=== PATIENT | female | born 1955 | race Caucasian/White ===

== ENCOUNTER 2017-03-21 11:17 | Inpatient (IN) | payer OTHER ==
[2017-03-21] MEDS ORDERED: NS 1,000 ML IV ONE ×2 (14:49→17:45)
[2017-03-21] MEDS ORDERED: ONDANSETRON 4 MG/2 ML VIAL IVP ONE (15:09)
[2017-03-21] MEDS ORDERED: HYDROmorphONE/DILAUDID 1 MG/ML INJ IVP ONE ×2 (15:10→17:45)
[2017-03-21 15:22] LABS: PLATELET COUNT 223 10^3/uL (150-400)
[2017-03-21] MEDS ORDERED: IOPAMIDOL (ISOVUE-300) 100 ML BTL ONE (15:34)
--- NOTE | 2017-03-21 15:38 | EDPHY ---
H & P Stated Complaint: lower mid abd pain x 3 days, hx divertic Time Seen by Provider: 03/21/17 15:01 HPI/ROS: CHIEF COMPLAINT: Lower abdominal pain HISTORY OF PRESENT ILLNESS: Patient is a 61-year-old female with a history recurring diverticulitis. She states that she began feeling pain in her left lower quadrant on Tuesday. She began taking Augmentin which has worked for her in the past. She states however that her symptoms usually improve after about a day or 2 but this time to have not. She had a fever at home of 101 but has been taking Aleve since. No nausea or vomiting. She has had normal bowel movements nonbloody. She does have history of laparoscopy x2 for endometriosis and right ovary removal. She denies urinary or vaginal symptoms currently. REVIEW OF SYSTEMS: Constitutional: denies: chills, fever, recent illness, recent injury EENTM: denies: blurred vision, double vision, nose congestion Respiratory: denies: cough, shortness of breath Cardiac: denies: chest pain, irregular heart rate, lightheadedness, palpitations Gastrointestinal/Abdominal: See HPI Genitourinary: denies: dysuria, frequency, hematuria, pain Musculoskeletal: denies: joint pain, muscle pain Skin: denies: lesions, rash, jaundice, bruising Neurological: denies: headache, numbness, paresthesia, tingling, dizziness, weakness Hematologic/Lymphatic: denies: blood clots, easy bleeding, easy bruising Immunologic/allergic: denies: HIV/AIDS, transplant EXAM: GENERAL: Well-appearing, well-nourished and in no acute distress. HEAD: Atraumatic, normocephalic. EYES: Pupils equal round and reactive to light, extraocular movements intact, sclera anicteric, conjunctiva are normal. ENT: TMs normal, nares patent, oropharynx clear without exudates. Moist mucous membranes. NECK: Normal range of motion, supple without lymphadenopathy or JVD. LUNGS: Breath sounds clear to auscultation bilaterally and equal. No wheezes rales or rhonchi. HEART: Regular rate and rhythm without murmurs, rubs or gallops. ABDOMEN: Suprapubic and left lower quadrant tenderness, no guarding or rebound . No right lower quadrant tenderness BACK: No CVA tenderness, no spinal tenderness, step-offs or deformities EXTREMITIES: Normal range of motion, no pitting or edema. No clubbing or cyanosis. NEUROLOGICAL: Cranial nerves II through XII grossly intact. Normal speech, normal gait. 5/5 strength, normal movement in all extremities, normal sensation PSYCH: Normal mood, normal affect. SKIN: Warm, dry, normal turgor, no visible rashes or lesions. Source: Patient Exam Limitations: No limitations - Personal History Current Tetanus/Diphtheria Vaccine: Unsure Current Tetanus Diphtheria and Acellular Pertussis (TDAP): Unsure - Medical/Surgical History Hx Asthma: No Hx Chronic Respiratory Disease: No Hx Diabetes: No Hx Cardiac Disease: No Hx Renal Disease: No Hx Cirrhosis: No Hx Alcoholism: No Hx HIV/AIDS: No Hx Splenectomy or Spleen Trauma: No Other PMH: divertic, endometriosis, laparotomy - Social History Smoking Status: Never smoked Alcohol Use: Sober Drug Use: None Constitutional: Initial Vital Signs Temperature (C) 37.0 C 03/21/17 11:32 Heart Rate 116 H 03/21/17 11:32 Respiratory Rate 16 03/21/17 11:32 Blood Pressure 158/75 H 03/21/17 11:32 O2 Sat (%) 95 03/21/17 11:32 O2 Delivery Mode Room Air Allergies/Adverse Reactions: ciprofloxacin [From Cipro] Allergy (Verified 03/21/17 18:53) Other-Enter Comments codeine Allergy (Verified 03/21/17 18:53) Vomiting propoxyphene [From Darvocet-N] Allergy (Verified 03/21/17 18:53) Itching Home Medications: Medication Instructions Recorded Amoxicillin/Clavulanate Pot 875 mg PO BID 03/21/17 [Augmentin 875 MG TAB (*)] Estradiol [Climara] 0.025 mg TD WE@0900 03/21/17 Herbals/Supplements -Info Only 1 ea PO DAILY 03/21/17 Lansoprazole [Prevacid] 30 mg PO HS 03/21/17 Multivitamins [Multivitamin (*)] 1 each PO DAILY 03/21/17 Niacin [Niacin 500 mg (*)] 1,500 mg PO HS 03/21/17 [place]-3 Fatty Acids [Fish Oil 1000 1,000 mg PO DAILY 03/21/17 mg (*)] Progesterone, Micronized 100 mg PO DAILY 03/21/17 [Progesterone] Spironolactone 100 mg PO DAILY 03/21/17 metFORMIN HCL [Metformin HCl ER] 1,500 mg PO DAILY@1800 03/21/17 Medical Decision Making - Diagnostics Imaging Results: Imaging Impressions Abdomen CT 03/21/17 15:09 Impression: 1. Severe perforated sigmoid diverticulitis with associated extraluminal gas bubbles and free fluid in the cul-de-sac. No well defined organized abscess. 2. Reactive enteritis of the ileum and dysmotile fluid within the cecum and ascending colon. No bowel obstruction. Findings discussed with Emergency Department physician, Dr. Inocente Storey on March 21, 2017 at 1653 hours. Imaging: Discussed imaging studies w/ call center rn Radiologist ED Course/Re-evaluation: 5:30 p.m. we discussed the CT and lab results. The patient is concerned. I recommended admission for IV antibiotics and monitoring. Patient and agree. 5:40 p.m. I discussed the case with Dr. Brito who will admit to the medical service. She asked that we consult surgery. 5:45 p.m. I discussed the case with Dr. Guevara who will consult. Differential Diagnosis: Partial list of the Differential diagnosis considered include but were not limited to; diverticulitis, urinary tract infection and although unlikely based on the history and physical exam, I also considered obstruction, ischemia , aneurysm, volvulus. - Data Points Laboratory Results: Laboratory Results 03/21/17 14:05 03/21/17 14:05 03/21/17 03/21/17 03/21/17 14:05 14:05 13:12 WBC 11.68 10^3/uL H 10^3/uL (3.80-9.50) RBC 4.70 10^6/uL 10^6/uL (4.18-5.33) Hgb 13.7 g/dL g/dL (12.6-16.3) Hct 42.4 % % (38.0-47.0) MCV 90.2 fL fL (81.5-99.8) MCH 29.1 pg pg (27.9-34.1) MCHC 32.3 g/dL L g/dL (32.4-36.7) RDW 13.7 % % (11.5-15.2) Plt Count 223 10^3/uL 10^3/uL (150-400) MPV 11.4 fL fL (8.7-11.7) Neut % (Auto) 93.9 % H % (39.3-74.2) Lymph % (Auto) 3.2 % L % (15.0-45.0) [place] % (Auto) 2.1 % L % (4.5-13.0) Eos % (Auto) 0.0 % L % (0.6-7.6) Baso % (Auto) 0.2 % L % (0.3-1.7) Nucleat RBC Rel Count 0.0 % % (0.0-0.2) Absolute Neuts (auto) 10.97 10^3/uL H 10^3/uL (1.70-6.50) Absolute Lymphs (auto) 0.37 10^3/uL L 10^3/uL (1.00-3.00) Absolute Monos (auto) 0.25 10^3/uL L 10^3/uL (0.30-0.80) Absolute Eos (auto) 0.00 10^3/uL L 10^3/uL (0.03-0.40) Absolute Basos (auto) 0.02 10^3/uL 10^3/uL (0.02-0.10) Absolute Nucleated RBC 0.00 10^3/uL 10^3/uL (0-0.01) Immature Gran % 0.6 % % (0.0-1.1) Immature Gran # 0.07 10^3/uL 10^3/uL (0.00-0.10) Sodium 137 mEq/L mEq/L (135-145) Potassium 4.0 mEq/L mEq/L (3.5-5.2) Chloride 103 mEq/L mEq/L (97-110) Carbon Dioxide 19 mEq/l L mEq/l (22-31) Anion Gap 15 mEq/L mEq/L (8-16) BUN 11 mg/dL mg/dL (7-23) Creatinine 0.7 mg/dL mg/dL (0.6-1.0) Estimated GFR > 60 Glucose 118 mg/dL H mg/dL (70-100) Calcium 9.0 mg/dL mg/dL (8.5-10.4) Total Bilirubin 1.0 mg/dL mg/dL (0.1-1.4) Conjugated Bilirubin 0.4 mg/dL mg/dL (0.0-0.5) Unconjugated Bilirubin 0.6 mg/dL mg/dL (0.0-1.1) AST 17 IU/L IU/L (14-46) ALT 29 IU/L IU/L (9-52) Alkaline Phosphatase 82 IU/L IU/L (38-126) Total Protein 6.5 g/dL g/dL (6.3-8.2) Albumin 3.7 g/dL g/dL (3.5-5.0) Lipase 57 IU/L IU/L (23-300) Urine Color VICTORINA Urine Appearance HAZY Urine pH 5.0 (5.0-7.5) Ur Specific [place] 1.030 (1.002-1.030) Urine Protein 1+ H (NEGATIVE) Urine Ketones 1+ H (NEGATIVE) Urine Blood NEGATIVE (NEGATIVE) Urine Nitrate NEGATIVE (NEGATIVE) Urine Bilirubin NEGATIVE (NEGATIVE) Urine Urobilinogen 2.0 EU H EU (0.2-1.0) Ur Leukocyte Esterase NEGATIVE (NEGATIVE) Urine RBC NONE SEEN /hpf /hpf (0-3) Urine WBC 1-3 /hpf /hpf (0-3) Ur Epithelial Cells TRACE /lpf /lpf (NONE-1+) Urine Bacteria 1+ /hpf H /hpf (NONE SEEN) Urine Mucus 4+ /lpf H /lpf (NONE-1+) Urine Glucose NEGATIVE (NEGATIVE) Medications Given: Pantoprazole Sodium (Protonix) 40 mg IVP DAILY SASKIA Stop: 09/17/17 18:44 Last Admin: 03/21/17 20:24 Dose: Not Given Discontinued Medications Hydromorphone HCl (Dilaudid) 0.5 mg IVP EDNOW ONE Stop: 03/21/17 15:11 Last Admin: 03/21/17 15:18 Dose: 0.5 mg Hydromorphone HCl (Dilaudid) 0.5 mg IVP EDNOW ONE Stop: 03/21/17 17:46 Last Admin: 03/21/17 17:52 Dose: 0.5 mg Sodium Chloride (Ns) 1,000 mls @ 0 mls/hr IV ONCE ONE PRN Reason: Wide Open Stop: 03/21/17 14:50 Last Admin: 03/21/17 14:53 Dose: 1,000 mls Piperacillin/Tazobactam/Dextrose (Zosyn 3.375 Gm (Premix)) 50 mls @ 100 mls/hr IV EDNOW ONE PRN Reason: Protocol Stop: 03/21/17 18:11 Last Admin: 03/21/17 18:16 Dose: 50 mls Sodium Chloride (Ns) 1,000 mls @ 0 mls/hr IV ONCE ONE PRN Reason: Wide Open Stop: 03/21/17 17:46 Last Admin: 03/21/17 17:51 Dose: 1,000 mls Ondansetron HCl (Zofran) 4 mg IVP EDNOW ONE Stop: 03/21/17 15:10 Last Admin: 03/21/17 15:18 Dose: 4 mg Departure - Departure Disposition: [facility] Inpatient Acute Clinical Impression: Diverticulitis large intestine Qualifiers: Diverticulitis bleeding: without bleeding Diverticulitis complication: with perforation and without abscess Qualified Code(s): K57.20 - Diverticulitis of large intestine with perforation and abscess without bleeding Condition: Fair
[2017-03-21] MEDS ORDERED: ONDANSETRON DISINTEGRATING 4 MG TAB PO PRN (17:41)
[2017-03-21] MEDS ORDERED: ONDANSETRON 4 MG/2 ML VIAL IVP PRN (17:41)
[2017-03-21] MEDS ORDERED: ACETAMINOPHEN 325 MG TAB PO PRN (17:41)
[2017-03-21] MEDS ORDERED: PIPERACILLIN/TAZO 3.375 GM/DEX 50 ML IV ONE (17:42)
[2017-03-21] MEDS ORDERED: D50W 25 GM/50 ML SYR IVP PRN (18:34)
--- NOTE | 2017-03-21 19:05 | GHP ---
[f rep st] HISTORY AND PHYSICAL DATE OF ADMISSION: 03/21/2017 CHIEF COMPLAINT: Abdominal pain, diverticulitis. HISTORY OF PRESENT ILLNESS: A 61-year-old female, with a history of diverticulosis, diverticulitis 4-5 times, presenting with lower abdominal pain. This is achy in nature and started on Tuesday. It felt like her prior episodes. She called her physician in [place], who prescribed her Augmentin, which she started taking that day. She has had decreased p.o. intake and fever to 101 at home. The pain became very severe this morning, 10/17, thus she presented to the hospital. No nausea, vomiting, or diarrhea. No headache. Minimal p.o. intake. REVIEW OF SYSTEMS: I completed a 10-point review of system, negative except as noted in the HPI. PAST MEDICAL HISTORY: 1. Prediabetes. 2. GERD. 3. 4 cm high hiatal hernia. 4. Diverticulosis. 5. History of diverticulitis 4-5 times. 6. Endometriosis. 7. Uterine fibroids. SURGICAL HISTORY: 1. Diagnostic laparoscopy in 1997. 2. Ovarian cyst. 3. Endometriosis. 4. Bilateral upper blepharoplasty in 1997. 5. Diagnostic laparoscopic right oophorectomy. 6. Carpal tunnel release. 7. Colonoscopy 2005. 8. Coronary CTA 2006. 9. Right carpal tunnel release 2006. 10. Full face and neck lift 2015. 11. Gastritis, duodenitis. MEDICATIONS: 1. Metformin 1500 mg daily. 2. Spironolactone 100 mg daily. 3. Climara transdermal patch weekly. 4. Prometrium 100 mg daily. 5. Lansoprazole 30 mg at bedtime. 6. Multivitamin. 7. Glucosamine. 8. Fish oil. 9. Calcium. 10. Niacin 1500 mg at bedtime. 11. Augmentin 875 mg twice daily. ALLERGIES: Codeine, Darvocet, ciprofloxacin. SOCIAL HISTORY: She is a retired nurse. She just moved here with her to [place] a couple weeks ago. Has a son and 4 grandchildren. Alcohol 1-2 beers 2-3 times a week. No tobacco or illicits. PHYSICAL EXAMINATION: VITAL SIGNS: Temperature 37.7, blood pressure 103/67, heart rate 70-116, respiratory rate 16, respiration 95 on room air. GENERAL: Lying in bed, no acute distress. HEENT: PERRLA. Mildly dry mucous membranes. CV: Regular rate and rhythm. No murmurs, gallops, rubs. LUNGS: Clear to auscultation bilaterally. ABDOMEN: Soft. Tender left upper quadrant, bilateral lower quadrants. Guarding but no rebound. Positive bowel sounds. : No Humphrey. MUSCULOSKELETAL: 5/5 upper and lower extremity strength. NEUROLOGIC: 2 through 12 intact. PSYCHIATRIC: Alert and oriented x3. LABORATORY DATA: WBC 11, hemoglobin 13, hematocrit 42, platelets 223. Sodium 137, potassium 4, chloride 103, carbon dioxide 19, creatinine 0.7, glucose 119, calcium 9. LFTs within normal. Lipase 57. Urine +[address]: Severe perforated sigmoid diverticulosis with associated extraluminal gas bubbles and free air in the cul-de-sac. Reactive enteritis of the ileum. ASSESSMENT AND PLAN: 1. Acute diverticulitis with perforation: Patient is currently hemodynamically stable. Dr. Guevara with Surgery will evaluate. Continue IV antibiotics, n.p.o. status with IV fluids. Lactate pending 2. Acute abdominal pain: Secondary to above. No evidence of abscess. p.r.n. Dilaudid. 3. Prediabetes: Hold metformin. Will use sliding scale insulin while here. 4. Leukocytosis: Secondary to acute diverticulitis with perforation. Afebrile. If fevers, will culture. 5. Gastritis, enteritis: Will change to IV PPI while n.p.o. 6. History of hiatal hernia: Stable. 7. Diet: N.p.o. 8. Deep venous prophylaxis: SCDs. DISPOSITION: Patient warrants observation admission given acute abdominal pain , diverticulitis, warranting IV antibiotics with IV fluids, and surgery consultation. /[id number]/MODL MTDD
[2017-03-21] MEDS: PANTOPRAZOLE SODIUM 40 MG VIAL IVP SCH (20:24)
--- NOTE | 2017-03-21 20:45 | GCON ---
[f rep st] CONSULTATION CONSULTATION NOTE REFERRING PHYSICIAN: Jailene Brito MD REASON FOR CONSULTATION: Recurrent diverticulitis. HISTORY: The patient is a 61-year-old white female who has had 5 episodes of diverticulitis since 2013. This is the first one where she has required hospitalization. Typically, she develops discomfort and starts Augmentin and 48 hours later the episode usually is resolved. This patient's pain started on Tuesday (today is Tuesday). She started the Augmentin and did not see resolution. On Tuesday, her temperature went to 101. She had no nausea and vomiting. She did have normal bowel movements. She has had no appetite today and the pain became worse today. She had a stool this morning without changes in discomfort. She had 2 soft stools later on in the day and felt somewhat better. She previously has had an exploratory laparoscopy for endometriosis. Ruptured chocolate cyst was identified in the first procedure and a right oophorectomy was performed on the 2nd procedure. She was seen in the ER. An x-ray showed sigmoid diverticulosis with tiny local focal perforations, a small amount of fluid present. I was asked to consult on this case for the possibility of surgical intervention. SOCIAL HISTORY: She is a nonsmoker. She drinks 2 or 3 glasses of wine or beer 2 times per week. PAST MEDICAL HISTORY: She has an interesting history of coagulopathy. At one point, she was asked to start taking aspirin and immediately developed scleral hemorrhages. She bruises easily with any minimal bump. She had a facelift and had extensive bruising after that. PAST SURGICAL HISTORY: She has had bilateral carpal tunnel surgery. She had a colonoscopy. 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 She was started on Prevacid. She then weaned herself off the Prevacid, and on the 2nd endoscopy, she was found to have esophagitis, gastritis, and duodenitis, as well as a 4 cm hiatal hernia. She has returned to taking the Prevacid. There is no history of rheumatic fever, tuberculosis, hepatitis, or transfusions. REVIEW OF SYSTEMS: She is "prediabetic" and has been so for 3 to 4 years. Her A1c has been as high as 6.0, today it is 5.4. ALLERGIES: She has on the chart a list allergies which is incorrect. It lists Tylenol is an allergy and she has been able to tolerate Tylenol. Cipro gives her ringing in her ears, which is an adverse reaction. Codeine gives her nausea and vomiting, which is an adverse reaction, and propoxyphene gives her nausea and vomiting. CURRENT MEDICATIONS: Include a 0.1 Climara patch, she divides it in 4, so her dose is 0.025, and she takes that weekly. She uses the Prevacid. For prediabetes, she takes metformin 1500 mg with her evening meal. She uses spironolactone 100 mg for hirsutism. LABORATORY DATA: Her white blood count is 11.7, with 96% neutrophils, hematocrit is 42, platelets are 223. Her sodium is 137, potassium is 4.0, BUN is 11, creatinine is 0.7, lipase is 57. Her serum specific gravity is 1.030. Serum lactate is pending. PHYSICAL EXAMINATION: VITAL SIGNS: Her blood pressure is 103/67, heart rate 74, temperature 37.7. GENERAL: She is awake and alert. 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 NEUROLOGIC: She is oriented to person, place, and time. No focal lateralizing neurologic findings. HEAD: The skull is normocephalic and atraumatic. Cranial nerves are intact. The occlusion is normal. L YMPHATICS: There is no cervical, supraclavicular, axillary or inguinal lymphadenopathy. NECK: There are no carotid bruits. Thyroid is not enlarged. BACK: Unremarkable. LUNGS: Clear to auscultation. CARDIAC: Shows S1, S2 to be normal. Normal split of S2 without murmurs, rubs, or gallops. ABDOMEN: Distended with hypoactive bowel sounds. She is tender with cough across the hypogastrium as a 6 on a scale of 1-10. To palpation, left upper quadrant is 2 on a scale of 1-10, left mid abdomen is 3, left lower quadrant is 6, epigastrium is 2, periumbilical area is 2, suprapubic area is 5, right upper quadrant is 1, right mid abdomen is 1, right lower quadrant is 5. This patient has received Zosyn. I feel this is a reasonable antibiotic at this point. I do not feel she needs emergent surgeryt, but would suggest rather temporizing with the antibiotics, observation and medical support. It is my hope that we can temporize this process and perform elective resection after the resolution of the current process (approximately 8 weeks). Normally, I do not recommend an aggressive surgery after 1 hospitalization, but she has had 5 prior similar episodes in the past 4 years, which have not required hospitalization, and I think at this point it is time to proceed with definitive treatment. The patient and her understand my recommendations. /[id number]/MODL MTDD
[2017-03-21] MEDS: HYDROmorphONE/DILAUDID 1 MG/ML INJ IVP PRN (22:08)
[2017-03-22] MEDS: HYDROmorphONE/DILAUDID 1 MG/ML INJ IVP PRN ×2 (06:10→10:36)
--- NOTE | 2017-03-22 09:06 | SOAPPROG ---
SOAP Progress Note Assessment/Plan: Assessment: significant diverticulitis with extraluminal air bubbles aroun ds sigmoid, no emergent need for surgery. recc: sips and chips, possibly clear liq diet tomorrow. Plan: continue iv antibiotics, bowel rest, discussed follow up with me post dischage to discuss colectomy. 03/22/17 09:02 Subjective: still with llq aqnd suprpubic pain, no chills, pasing some flatus, had a stool yesterday. Objective: Vital Signs Temp Pulse Resp BP Pulse Ox 37.7 C 93 16 95/63 L 92 03/22/17 07:35 03/22/17 07:35 03/22/17 07:35 03/22/17 07:35 03/22/17 07:35 Laboratory Results 03/22/17 06:06 03/21/17 03/22/17 03/23/17 05:59 05:59 05:59 Intake Total 3100 Balance 3100 abdomen soft. tender llq qand supra pubic. no guardking, no rebound wbc normal, afebrile ICD10 Worksheet Patient Problems: Problems Problem Status Onset Diverticulitis large intestine Acute
[2017-03-22] MEDS: INSULIN LISPRO 100 UNIT/ML SC SCH ×3 (09:26→18:25)
[2017-03-22] MEDS: PANTOPRAZOLE SODIUM 40 MG VIAL IVP SCH (10:35)
--- NOTE | 2017-03-22 10:59 | ASMTCASEMG ---
Living Arrangements What is your living Answers: With Spouse arrangement? Who do you live with? Type Of Residence What kind of residence do Answers: House you live in? Discharge Plan Comments Coordination Status Comments Notes: Pt is a 61 y/o female admitted for diverticulitis. Pt will most likely independent when medically stable. No therapies ordered at this time. CM available for changes. Plan: Independent Date Signed: 03/22/2017 10:58 AM Electronically Signed By:ANDRE Smart
[2017-03-22] MEDS ORDERED: NALOXONE HCL 0.4 MG/ML INJ IVP PRN (12:05)
[2017-03-22] MEDS: PIPERACILLIN/TAZO 3.375 GM/DEX 50 ML IV SCH ×3 (12:31→23:47)
[2017-03-22] MEDS: HYDROmorphONE/DILAUDID 6 MG/30 ML PCA IV PRN (13:40)
[2017-03-22] MEDS: NS 1,000 ML IV SCH (13:43)
--- NOTE | 2017-03-22 14:44 | HOSPPROG ---
Hospitalist Progress Note Assessment/Plan: 61y female with c/o abd pain. First encounter, chart reviewed. 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 Still having some pain. Objective: Vital Signs Temp Pulse Resp BP Pulse Ox 37.8 C 99 16 109/65 90 L 03/22/17 13:50 03/22/17 13:50 03/22/17 13:50 03/22/17 13:50 03/22/17 13:50 Laboratory Results 03/22/17 06:06 03/21/17 03/22/17 03/23/17 05:59 05:59 05:59 Intake Total 3100 Balance 3100 - Physical Exam Constitutional: no apparent distress, appears nourished, uncomfortable Eyes: PERRL, anicteric sclera, EOMI Ears, Nose, Mouth, Throat: moist mucous membranes, hearing normal, ears appear normal Cardiovascular: No JVD, No tachycardia, No edema Respiratory: no respiratory distress, no rales or rhonchi, reduced air movement Gastrointestinal: tenderness, No normoactive bowel sounds, No ascites Skin: warm, normal color, No mottled Musculoskeletal: normal joint ROM, no joint effusions, generalized weakness Neurologic: AAOx3 Psychiatric: interacting appropriately, not anxious, not encephalopathic, thought process linear ICD10 Worksheet Patient Problems: Problems Problem Status Onset Diverticulitis large intestine Acute
--- NOTE | 2017-03-22 15:47 | PDMN ---
Medical Necessity Medical necessity: M150 diverticulitis- acute A-2: INPT microperforations , persistent abd pain- req NPO, SOCIOLOGY INSTRUCTOR, IVF, IV Zosyn, further monitoring and tx needed > 2 midnights
[2017-03-23] MEDS: NS 1,000 ML IV SCH ×2 (00:30→11:27)
[2017-03-23] MEDS: PIPERACILLIN/TAZO 3.375 GM/DEX 50 ML IV SCH ×3 (05:20→18:03)
[2017-03-23] MEDS: PANTOPRAZOLE SODIUM 40 MG VIAL IVP SCH (09:19)
[2017-03-23] MEDS ORDERED: KETOROLAC 30 MG/1 ML SDV IVP PRN (12:24)
[2017-03-23] MEDS ORDERED: SPIRONOLACTONE 100 MG TAB PO SCH (12:30)
[2017-03-23] MEDS: HYDROmorphONE/DILAUDID 6 MG/30 ML PCA IV PRN (12:31)
[2017-03-23] MEDS: FUROSEMIDE 20 MG/2 ML VIAL IVP SCH (12:51)
[2017-03-23] MEDS: INSULIN LISPRO 100 UNIT/ML SC SCH ×2 (14:31→18:24)
--- NOTE | 2017-03-23 14:52 | HOSPPROG ---
Hospitalist Progress Note Assessment/Plan: 61y female with c/o abd pain. 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 Still some discomfort. Objective: Vital Signs Temp Pulse Resp BP Pulse Ox 36.0 C 83 16 102/68 96 03/23/17 14:00 03/23/17 14:00 03/23/17 14:00 03/23/17 14:00 03/23/17 14:00 Laboratory Results 03/23/17 08:30 03/23/17 08:30 03/22/17 03/23/17 03/24/17 05:59 05:59 05:59 Intake Total 1350 1000 Output Total 850 Balance 1350 150 - Physical Exam Constitutional: no apparent distress, appears nourished Eyes: PERRL, anicteric sclera Ears, Nose, Mouth, Throat: moist mucous membranes, hearing normal Cardiovascular: regular rate and rhythym, No JVD Respiratory: no respiratory distress, reduced air movement Gastrointestinal: tenderness, No ascites Skin: warm, normal color Musculoskeletal: normal joint ROM, no joint effusions Neurologic: AAOx3 Psychiatric: interacting appropriately, not anxious, not encephalopathic ICD10 Worksheet Patient Problems: Problems Problem Status Onset Diverticulitis large intestine Acute
--- NOTE | 2017-03-23 15:13 | SOAPPROG ---
SOAP Progress Note Assessment/Plan: Assessment:perforated diverticulitis multiple uterine fibroids type II DM Plan: discussed pathophysiology of diverticulitis and management strategy/ reviewed CT images with patient and repeat CT if spiking fevers or wbc elevation/discussed possible need for IR drain placement or surgery if not improving 03/23/17 15:12 03/23/17 20:49 Subjective: ongoing LLQ pain/improved with UNIT TENDER Had 30 mg Toradol at 1250 with good response/passing flatus Objective: Vital Signs Temp Pulse Resp BP Pulse Ox 36.0 C 83 16 102/68 96 03/23/17 14:00 03/23/17 14:00 03/23/17 14:00 03/23/17 14:00 03/23/17 14:00 Laboratory Results 03/23/17 08:30 03/23/17 08:30 03/22/17 03/23/17 03/24/17 05:59 05:59 05:59 Intake Total 1350 1000 Output Total 850 Balance 1350 150 - Time Spent With Patient Time Spent With Patient: 30 minutes - Pending Discharge Pending Discharge Within 24 Hours: No Physical Exam - Physical Exam General Appearance: mild distress Respiratory: lungs clear, normal breath sounds Cardiac/Chest: regular rate, rhythm Abdomen: normal bowel sounds, soft, distended, other (tender w/ guarding LLQ + suprapubic) Pelvic Exam: deferred Rectal: deferred Skin: normal color, warm/dry Neuro/Psych: normal mood/affect, oriented x 3 ICD10 Worksheet Patient Problems: Problems Problem Status Onset Diverticulitis large intestine Acute
[2017-03-23] MEDS: ESTRADIOL 0.025 MG PATCH TD SCH (18:24)
[2017-03-23] MEDS: KETOROLAC 15 MG/1 ML SDV IVP PRN (21:23)
[2017-03-24] MEDS: PIPERACILLIN/TAZO 3.375 GM/DEX 50 ML IV SCH ×4 (00:45→16:08)
[2017-03-24] MEDS: KETOROLAC 15 MG/1 ML SDV IVP PRN (04:20)
[2017-03-24 05:37] LABS: PLATELET COUNT 198 10^3/uL (150-400)
--- NOTE | 2017-03-24 07:45 | SOAPPROG ---
SOAP Progress Note Assessment/Plan: Assessment:perforated diverticulitis clinically improving multiple uterine fibroids type II DM Plan: advance diet/oral analgesics discussed transition to oral antibiotics next 24-48 hours 03/23/17 15:12 03/23/17 20:49 03/24/17 07:42 Subjective: feeling better/soft BM earlier Objective: Vital Signs Temp Pulse Resp BP Pulse Ox 36.6 C 78 18 119/80 95 03/24/17 07:38 03/24/17 07:38 03/24/17 07:38 03/24/17 07:38 03/24/17 07:38 Laboratory Results 03/24/17 05:16 03/24/17 05:16 03/23/17 03/24/17 03/25/17 05:59 05:59 05:59 Intake Total 1350 1000 Output Total 1300 Balance 1350 -300 - Pending Discharge Pending Discharge Within 24 Hours: Yes Pending Discharge Date: 03/25/17 Pending Discharge Time: 11:00 Physical Exam - Physical Exam General Appearance: no apparent distress Abdomen: normal bowel sounds, soft, other (mild LLQ tenderness without guarding) ICD10 Worksheet Patient Problems: Problems Problem Status Onset Diverticulitis large intestine Acute
[2017-03-24] MEDS ORDERED: HYDROmorphONE/DILAUDID 4 MG TAB PO PRN (07:46)
[2017-03-24] MEDS: PANTOPRAZOLE SODIUM 40 MG VIAL IVP SCH (09:19)
[2017-03-24] MEDS: FUROSEMIDE 20 MG/2 ML VIAL IVP SCH (09:20)
--- NOTE | 2017-03-24 11:15 | HOSPPROG ---
Hospitalist Progress Note Assessment/Plan: 61y female with c/o abd pain. #Diverticulitis with microperfs cont supportive care IV zosyn possible po transition 24 hours advance diet BM x3 #Pain improving transition to PO when able #Prediabetes meds on hold restart when meds tolerated #Dispo inpt cont to monitor Subjective: Feeling better. No pain today. Had bm. Objective: Vital Signs Temp Pulse Resp BP Pulse Ox 36.6 C 78 18 119/80 95 03/24/17 07:38 03/24/17 07:38 03/24/17 07:38 03/24/17 07:38 03/24/17 07:38 Laboratory Results 03/24/17 05:16 03/24/17 05:16 03/23/17 03/24/17 03/25/17 05:59 05:59 05:59 Intake Total 1350 1000 Output Total 1300 Balance 1350 -300 - Physical Exam Constitutional: no apparent distress, appears nourished Eyes: PERRL, anicteric sclera Ears, Nose, Mouth, Throat: moist mucous membranes, hearing normal Cardiovascular: No JVD, No edema Respiratory: no respiratory distress, clear to auscultation Gastrointestinal: distension, No tenderness, No ascites Skin: warm, normal color Musculoskeletal: full muscle strength, normal joint ROM Neurologic: AAOx3 Psychiatric: interacting appropriately, not anxious, not encephalopathic ICD10 Worksheet Patient Problems: Problems Problem Status Onset Diverticulitis large intestine Acute
[2017-03-24] MEDS: INSULIN LISPRO 100 UNIT/ML SC SCH ×3 (13:26→18:41)
[2017-03-24] MEDS: ESTRADIOL 0.025 MG PATCH TD SCH (13:27)
[2017-03-24] MEDS: IBUPROFEN 600 MG TAB PO SCH ×3 (14:12→21:21)
[2017-03-24 15:05] VITALS: RESP 16
[2017-03-24] MEDS: AMOXICILLIN/CLAVULANATE POT 875/125 MG TAB PO SCH ×2 (15:52→21:21)
[2017-03-25] MEDS: IBUPROFEN 600 MG TAB PO SCH ×2 (06:06→14:19)
[2017-03-25] MEDS ORDERED: FUROSEMIDE 20 MG TAB PO SCH (09:00)
[2017-03-25] MEDS: AMOXICILLIN/CLAVULANATE POT 875/125 MG TAB PO SCH (09:04)
[2017-03-25] MEDS: INSULIN LISPRO 100 UNIT/ML SC SCH ×2 (10:29→12:41)
[2017-03-25 11:12] VITALS: BP 103/88; PULSE 92; TEMP 97.9; O2SAT 95
--- NOTE | 2017-03-25 12:01 | HOSPPROG ---
Hospitalist Progress Note Assessment/Plan: 61y female with c/o abd pain. Today is my first encounter with the patient, chart reviewed. #Diverticulitis with microperforations -started on Augmentin -was treated with Zosyn #Pain improving transition to PO when able #Prediabetes meds on hold restart when meds tolerated #Dispo dc home and close f/u with Dr Carrington Subjective: Ronda is feeling much better today, has very little abdominal pain. Objective: Vital Signs Temp Pulse Resp BP Pulse Ox 36.6 C 92 16 103/88 H 95 03/25/17 11:08 03/25/17 11:08 03/25/17 11:08 03/25/17 11:08 03/25/17 11:08 Laboratory Results 03/24/17 05:16 03/24/17 05:16 03/24/17 03/25/17 03/26/17 05:59 05:59 05:59 Intake Total 1000 Output Total 1300 Balance -300 - Physical Exam Constitutional: no apparent distress, appears nourished, not in pain Eyes: PERRL Ears, Nose, Mouth, Throat: hearing normal Cardiovascular: regular rate and rhythym Respiratory: no respiratory distress Gastrointestinal: normoactive bowel sounds, soft, non-tender abdomen Skin: warm, normal color Musculoskeletal: full muscle strength Neurologic: AAOx3 Psychiatric: interacting appropriately ICD10 Worksheet Patient Problems: Problems Problem Status Onset Diverticulitis large intestine Acute
--- NOTE | 2017-03-25 19:35 | GDS ---
[f rep st] DISCHARGE SUMMARY DISCHARGE DIAGNOSES: 1. Acute diverticulitis with microperforation. 2. Pain due to this. 3. Pre diabetes. CONSULTATIONS: 1. Dr. Guevara. 2. Dr. David Carrington. HISTORY: Briefly, the patient is a 61-year-old female with a history of diverticulosis, diverticulit is 4-5 times, presenting with lower abdominal pain. It was aching in nature. She has had prior episod es and started herself on Augmentin without improvement. She came to the emergency room for further e valuation. She had a CT of the abdomen performed, which showed a severe perforated sigmoid diverticul itis with associated extraluminal gas bubbles and free fluid in the cul-de-sac. She had no well-organ ized abscess. She also has reactive enteritis of the ileum and dysmotile fluid within the cecum and a scending colon without bowel obstruction. She was seen and evaluated by Dr. Guevara and treated with I V antibiotics. She was treated with Zosyn and started to feel better. We discussed her definitive be atment. She is going to follow up with Dr. Hubert Carrington in the outpatient setting. She will likely need surgery for the treatment of this. She is clinically improving. She is eating and drinking well. She will be discharged home today. I explained to her and her if she develops any type of severe pain to return to the ER. HOSPITAL COURSE BY PROBLEM: 1. Diverticulitis with microperforations. She was treated with several days of Zosyn. She will be di scharged on Augmentin. She will get a total of 10 days of antibiotic treatment. I told her to talk to Dr. Carrington in case he wants her to be on antibiotics longer. 2. Pain, resolved. 3. Pre diabetes, to restart her metformin. DISCHARGE CONDITION: Stable. Blood pressure is 103/88, heart rate is 92, respiratory rate is 16, O2 sats on room air 95%, temperature 36.6. MEDICATIONS AT DISCHARGE: Please see the EMR. DISCHARGE INSTRUCTIONS: 1. Close followup with Dr. Carrington. He may require longer oral antibiotics which she has access to at h er home. 2. To further follow up with her primary care provider in regard to anemia. I suspect this is from h er acute illness. Greater than 30 minutes discharging and coordinating her care. /[id number]/BETTIEL
== END 2017-03-25 14:31 | disposition home or self-care (01) | DRG 392 ==
LOC: F3E 20:05 → OBSVTOIN 03-22 14:40
PROVIDERS: ADMIT Internal Medicine; ATTEND Internal Medicine
DX: K57.20 Diverticulitis of large intestine with perforation and abscess without bleeding (principal); R73.03 Prediabetes; K21.9 Gastro-esophageal reflux disease without esophagitis
CPT/HCPCS: 96374; G0378; J1170; J1885; J1940; J2405; J2543; Q9967

== ENCOUNTER 2017-04-02 13:04 | Inpatient (IN) | payer OTHER ==
--- NOTE | 2017-04-02 14:04 | EDPHY ---
H & P Time Seen by Provider: 04/02/17 14:03 HPI/ROS: CHIEF COMPLAINT: Left lower quadrant abdominal pain HISTORY OF PRESENT ILLNESS: History of diverticulitis maybe 4 or 5 times was 1st admitted for that diagnosis on March 22 and discharged on the . She had micro perforation but no abscess no finished her Augmentin this morning. Today she developed worsening left lower quadrant abdominal pain and fever to 100.8 today earlier this morning. She is still having stool. Her fever since subsided her pain is a little bit better. Not associated with sore throat or headache, coughing or short of breath, vomiting or dysuria or skin rash. Symptoms moderate. REVIEW OF SYSTEMS: Eye: no change in vision ENT: no sore throat Cardiac: no chest pain or syncope Pulmonary: no cough or SOB Abdomen: HPI Musculoskeletal: no back pain Skin: no rash Neuro: no headache Constitutional: HPI : no urinary symptoms A comprehensive 10 point review of systems is otherwise negative aside from elements mentioned in the history of present illness. 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 General Appearance: Alert and conversant, cooperative. Eyes: No scleral icterus. ENT, Mouth: Normal mucous membranes. Respiratory: Normal respiratory effort, breath sounds equal, lungs are clear to auscultation. Cardiovascular: Regular rate and rhythm. Gastrointestinal: Left lower quadrant abdominal tenderness without rebound or guarding, decreased bowel sounds. Neurological: Alert, face symmetric, normal motor and sensory in extremities. Skin: Warm and dry, no rashes. Musculoskeletal: No peripheral edema. Psychiatric: Not agitated. Emergency Department course/MDM: Declined antiemetics or pain medication, abdominal CT scanning discussed and consented to evaluate for worsening free air or abscess. 1605: central pelvic abscess, 8 x 3 x 6 cm, [facility]. 1610: Results discussed and CT reviewed with patient, MOUNA barcenas. Admission surgeon for diverticulitis with abscess, Dr. Carrington. Smoking Status: Never smoked Constitutional: Initial Vital Signs Temperature (C) 37 C 04/02/17 13:08 Heart Rate 96 04/02/17 13:08 Respiratory Rate 18 04/02/17 13:08 Blood Pressure 110/75 04/02/17 13:08 O2 Sat (%) 95 04/02/17 13:08 O2 Delivery Mode Room Air Allergies/Adverse Reactions: ciprofloxacin [From Cipro] Allergy (Verified 04/02/17 13:08) Other-Enter Comments codeine Allergy (Verified 04/02/17 13:08) Vomiting propoxyphene [From Darvocet-N] Allergy (Verified 04/02/17 13:08) Itching Home Medications: Medication Instructions Recorded Estradiol [Climara] 0.025 mg TD WE@0900 03/21/17 Herbals/Supplements -Info Only 1 ea PO DAILY 03/21/17 Lansoprazole [Prevacid] 30 mg PO HS 03/21/17 Multivitamins [Multivitamin (*)] 1 each PO DAILY 03/21/17 Niacin [Niacin 500 mg (*)] 1,500 mg PO HS 03/21/17 [place]-3 Fatty Acids [Fish Oil 1000 1,000 mg PO DAILY 03/21/17 mg (*)] Progesterone, Micronized 100 mg PO DAILY 03/21/17 [Progesterone] Spironolactone 100 mg PO DAILY 03/21/17 metFORMIN HCL [Metformin HCl ER] 1,500 mg PO DAILY@1800 03/21/17 Amoxicillin/Clavulanate Pot 875 mg PO BID #15 tab 03/25/17 [Augmentin 875 MG TAB (*)] Estradiol [Climara] 0.025 mg TD We@0900 patch 03/25/17 Medical Decision Making - Diagnostics Imaging Results: Imaging Impressions Abdomen CT 04/02/17 14:26 Impression: 1. New central pelvic abscess, with moderate associated mesenteric inflammation in an area of previously noted diverticulitis. Due to central positioning, this would be difficult to drain percutaneously. 2. Mild hydronephrosis secondary to pelvic inflammation. 3. Constipation. 4. Additional findings as above. Findings discussed with Viktor Palacios on 04/02/2017 at 1602 hours. Imaging: Discussed imaging studies w/ call center analyst Radiologist, I viewed and interpreted images myself Differential Diagnosis: Differential considered including but not limited to diverticulitis, intra- abdominal abscess, intestinal perforation, bowel obstruction Consult/Admit Bed Type: [place] [id number] - Data Points Laboratory Results: Laboratory Results 04/02/17 14:00 04/02/17 14:00 04/02/17 04/02/17 04/02/17 14:00 14:00 14:00 WBC 17.90 10^3/uL H 10^3/uL (3.80-9.50) RBC 4.39 10^6/uL 10^6/uL (4.18-5.33) Hgb 12.5 g/dL L g/dL (12.6-16.3) Hct 39.1 % % (38.0-47.0) MCV 89.1 fL fL (81.5-99.8) MCH 28.5 pg pg (27.9-34.1) MCHC 32.0 g/dL L g/dL (32.4-36.7) RDW 14.5 % % (11.5-15.2) Plt Count 448 10^3/uL H 10^3/uL (150-400) MPV 10.9 fL fL (8.7-11.7) Neut % (Auto) 86.3 % H % (39.3-74.2) Lymph % (Auto) 8.8 % L % (15.0-45.0) [place] % (Auto) 3.7 % L % (4.5-13.0) Eos % (Auto) 0.3 % L % (0.6-7.6) Baso % (Auto) 0.3 % % (0.3-1.7) Nucleat RBC Rel Count 0.0 % % (0.0-0.2) Absolute Neuts (auto) 15.44 10^3/uL H 10^3/uL (1.70-6.50) Absolute Lymphs (auto) 1.57 10^3/uL 10^3/uL (1.00-3.00) Absolute Monos (auto) 0.67 10^3/uL 10^3/uL (0.30-0.80) Absolute Eos (auto) 0.05 10^3/uL 10^3/uL (0.03-0.40) Absolute Basos (auto) 0.06 10^3/uL 10^3/uL (0.02-0.10) Absolute Nucleated RBC 0.00 10^3/uL 10^3/uL (0-0.01) Immature Gran % 0.6 % % (0.0-1.1) Immature Gran # 0.11 10^3/uL H 10^3/uL (0.00-0.10) Sodium 142 mEq/L mEq/L (135-145) Potassium 4.0 mEq/L mEq/L (3.5-5.2) Chloride 105 mEq/L mEq/L (97-110) Carbon Dioxide 21 mEq/l L mEq/l (22-31) Anion Gap 16 mEq/L mEq/L (8-16) BUN 9 mg/dL mg/dL (7-23) Creatinine 0.7 mg/dL mg/dL (0.6-1.0) Estimated GFR > 60 Glucose 92 mg/dL mg/dL (70-100) Calcium 9.0 mg/dL mg/dL (8.5-10.4) Magnesium 2.2 mg/dL mg/dL (1.6-2.3) Medications Given: Discontinued Medications Ertapenem (Invanz) 1 gm IVP EDNOW ONE PRN Reason: Protocol Stop: 04/02/17 16:13 Last Admin: 04/02/17 16:21 Dose: 1 gm Sodium Chloride (Ns) 1,000 mls @ 0 mls/hr IV EDNOW ONE; Wide Open PRN Reason: Protocol Stop: 04/02/17 14:15 Last Admin: 04/02/17 14:20 Dose: 1,000 mls Departure - Departure Disposition: [facility] Acute Clinical Impression: Diverticulitis large intestine Qualifiers: Diverticulitis bleeding: without bleeding Diverticulitis complication: with abscess Qualified Code(s): K57.20 - Diverticulitis of large intestine with perforation and abscess without bleeding Condition: Good Referrals: Bonita Ni MD [Primary Care Provider] - As per Instructions
[2017-04-02] MEDS ORDERED: NS 1,000 ML IV ONE (14:14)
[2017-04-02 14:23] LABS: PLATELET COUNT 448 10^3/uL (150-400)
[2017-04-02] MEDS ORDERED: IOPAMIDOL (ISOVUE-300) 100 ML BTL ONE (15:20)
[2017-04-02] MEDS ORDERED: ERTAPENEM 1 GM VIAL IVP ONE (16:12)
--- NOTE | 2017-04-02 17:25 | PDGENHP ---
History and Physical - Chief Complaint fever and worsening abd pain - History of Present Illness Ronda was recently hospitalized for acute diverticulitis. She responded initially to medical therapy with antibiotics and was discharge home one week ago to complete a course of Augmentin. She felt well until this morning when she developed fever and increasing pain. She was seen in the ED by Dr. Del Castillo and surgical consult was requested History Information - Allergies/Home Medication List Allergies/Adverse Reactions: ciprofloxacin [From Cipro] Allergy (Verified 04/02/17 13:08) Other-Enter Comments codeine Allergy (Verified 04/02/17 13:08) Vomiting propoxyphene [From Darvocet-N] Allergy (Verified 04/02/17 13:08) Itching Home Medications: Estradiol [Climara] 0.025 mg TD WE@0900 03/21/17 [Last Taken Unknown] Herbals/Supplements -Info Only 1 ea PO DAILY 03/21/17 [Last Taken Unknown] Lansoprazole [Prevacid] 30 mg PO HS 03/21/17 [Last Taken Unknown] Multivitamins [Multivitamin (*)] 1 each PO DAILY 03/21/17 [Last Taken Unknown] Niacin [Niacin 500 mg (*)] 1,500 mg PO HS 03/21/17 [Last Taken Unknown] [place]-3 Fatty Acids [Fish Oil 1000 mg (*)] 1,000 mg PO DAILY 03/21/17 [Last Taken Unknown] Progesterone, Micronized [Progesterone] 100 mg PO DAILY 03/21/17 [Last Taken Unknown] Spironolactone 100 mg PO DAILY 03/21/17 [Last Taken Unknown] metFORMIN HCL [Metformin HCl ER] 1,500 mg PO DAILY@1800 03/21/17 [Last Taken Unknown] I have personally reviewed and updated: family history, medical history, social history, surgical history - Past Medical History degenerative disc disease, diabetes type 1 - Surgical History Additional surgical history: laparoscopy x 2 for endometriosis/ovarian cyst. blepharoplasty/face lift - Social History Smoking Status: Never smoked Alcohol Use: Other (1-2 beers 2-3 days/week) Drug Use: None Review of Systems Review of Systems: Constitutional: Reports: chills, fever Gastrointestinal: Reports: abdominal pain, abdominal distention Genitourinary: Reports: no symptoms Physical Exam Physical Exam: Temp Pulse Resp BP Pulse Ox 37.1 C 90 16 132/80 H 93 04/02/17 17:07 04/02/17 17:07 04/02/17 17:07 04/02/17 17:07 04/02/17 17:07 Constitutional: uncomfortable Eyes: PERRL, anicteric sclera Cardiovascular: regular rate and rhythym Respiratory: no respiratory distress, no rales or rhonchi, clear to auscultation , reduced air movement Gastrointestinal: normoactive bowel sounds, distension, other (upper abdomen soft/tympanitic without tenderness/suprapubic tenderness with guarding) Genitourinary: no bladder fullness Skin: warm Musculoskeletal: full muscle strength Neurologic: AAOx3 Psychiatric: interacting appropriately Lymph, Heme, Immunologic: no supraclavicular LAD Lab Data & Imaging Review 04/02/17 14:00 04/02/17 14:00 WBC 17.90 10^3/uL (3.80-9.50) H 04/02/17 14:00 RBC 4.39 10^6/uL (4.18-5.33) 04/02/17 14:00 Hgb 12.5 g/dL (12.6-16.3) L 04/02/17 14:00 Hct 39.1 % (38.0-47.0) 04/02/17 14:00 MCV 89.1 fL (81.5-99.8) 04/02/17 14:00 MCH 28.5 pg (27.9-34.1) 04/02/17 14:00 MCHC 32.0 g/dL (32.4-36.7) L 04/02/17 14:00 RDW 14.5 % (11.5-15.2) 04/02/17 14:00 Plt Count 448 10^3/uL (150-400) H 04/02/17 14:00 MPV 10.9 fL (8.7-11.7) 04/02/17 14:00 Neut % (Auto) 86.3 % (39.3-74.2) H 04/02/17 14:00 Lymph % (Auto) 8.8 % (15.0-45.0) L 04/02/17 14:00 [place] % (Auto) 3.7 % (4.5-13.0) L 04/02/17 14:00 Eos % (Auto) 0.3 % (0.6-7.6) L 04/02/17 14:00 Baso % (Auto) 0.3 % (0.3-1.7) 04/02/17 14:00 Nucleat RBC Rel Count 0.0 % (0.0-0.2) 04/02/17 14:00 Absolute Neuts (auto) 15.44 10^3/uL (1.70-6.50) H 04/02/17 14:00 Absolute Lymphs (auto) 1.57 10^3/uL (1.00-3.00) 04/02/17 14:00 Absolute Monos (auto) 0.67 10^3/uL (0.30-0.80) 04/02/17 14:00 Absolute Eos (auto) 0.05 10^3/uL (0.03-0.40) 04/02/17 14:00 Absolute Basos (auto) 0.06 10^3/uL (0.02-0.10) 04/02/17 14:00 Absolute Nucleated RBC 0.00 10^3/uL (0-0.01) 04/02/17 14:00 Immature Gran % 0.6 % (0.0-1.1) 04/02/17 14:00 Immature Gran # 0.11 10^3/uL (0.00-0.10) H 04/02/17 14:00 Sodium 142 mEq/L (135-145) 04/02/17 14:00 Potassium 4.0 mEq/L (3.5-5.2) 04/02/17 14:00 Chloride 105 mEq/L (97-110) 04/02/17 14:00 Carbon Dioxide 21 mEq/l (22-31) L 04/02/17 14:00 Anion Gap 16 mEq/L (8-16) 04/02/17 14:00 BUN 9 mg/dL (7-23) 04/02/17 14:00 Creatinine 0.7 mg/dL (0.6-1.0) 04/02/17 14:00 Estimated GFR > 60 04/02/17 14:00 Glucose 92 mg/dL (70-100) 04/02/17 14:00 Calcium 9.0 mg/dL (8.5-10.4) 04/02/17 14:00 Magnesium 2.2 mg/dL (1.6-2.3) 04/02/17 14:00 Visualized and Interpreted Chest x-ray results: No Visualized and Interpreted imaging results: Yes Interpretation: I reviewed imaging/CT with Ronda at the bedside. 8 x 3 cm abscess between the uterus and rectum (pouch of Leeroy). with air bubbles. diverticulosis with resolving diverticulitis Assessment & Plan Assessment: Pelvic Abscess type II DM hx endometriosis Plan: I discussed the findings with Ronda and recommended operative drainage via laparoscopy. I reviewed images with radiology and they did not favor attempted percutaneous drainage due to a lack of an appropriate window. We discussed the procedure, risks and potential need for conversion to open procedure/sigmoid resection and end colostomy. Informed consent was obtained Tirso Carrington MD, FACS
[2017-04-02] MEDS ORDERED: BUPIVACAINE 0.5% 10 ML SDV ONE (19:05)
[2017-04-02] MEDS ORDERED: MIDAZOLAM 2 MG/2 ML VIAL IVP ONE (19:40)
--- NOTE | 2017-04-02 19:40 | PDANEPAE ---
ANE History of Present Illness abd absces ANE Past Medical History - Cardiovascular History Hx Hypertension: No Hx Arrhythmias: No Hx Chest Pain: No Hx Coronary Artery / Peripheral Vascular Disease: No Hx CHF / Valvular Disease: No Hx Palpitations: No Cardiovascular History Comment: pAC' - Pulmonary History Hx COPD: No Hx Asthma/Reactive Airway Disease: No Hx Recent Upper Respiratory Infection: No Hx Oxygen in Use at Home: No Hx Sleep Apnea: No - Endocrine History Hx Diabetes: Yes Hypothyroid: No Hyperthyroid: No - Renal History Hx Renal Disorders: No - Liver History Hx Hepatic Disorders: No - Neurological & Psychiatric Hx Hx Neurological and Psychiatric Disorders: No - Chronic Pain History Chronic Pain: No ANE Review of Systems Review of systems is: negative Review of Systems: - Exercise capacity Exercise capacity: >=4 METS - Systems Constitutional: Reports: malaise ANE Patient History - Allergies Allergies/Adverse Reactions: ciprofloxacin [From Cipro] Allergy (Verified 04/02/17 13:08) Other-Enter Comments codeine Allergy (Verified 04/02/17 13:08) Vomiting propoxyphene [From Darvocet-N] Allergy (Verified 04/02/17 13:08) Itching - Home Medications Home Medications: Lansoprazole [Prevacid] 30 mg PO HS 03/21/17 [Last Taken 04/02/17] Progesterone, Micronized [Progesterone] 100 mg PO HS 03/21/17 [Last Taken ] Spironolactone 100 mg PO DAILY 03/21/17 [Last Taken 04/02/17] metFORMIN HCL [Metformin HCl ER] 1,500 mg PO DAILY@1800 03/21/17 [Last Taken ] Herbals/Supplements -Info Only 1 ea PO BID 04/02/17 [Last Taken 04/02/17] - NPO status NPO Status: no food or drink >8 hours - Anes Hx Anes Hx: no prior problems - Smoking Hx Smoking Status: Never smoked - Alcohol Use Alcohol Use: Other (1-2 beers 2-3 days/week) - Family Anes Hx Family Anes Hx: none ANE Labs/Vital Signs - Labs Result Diagrams: 04/02/17 14:00 04/02/17 14:00 - Vital Signs Vital Signs: reviewed preoperatively; see RN documention for details Blood Pressure: 127/68 Heart Rate: 89 Respiratory Rate: 16 O2 Sat (%): 87 Height: 165.1 cm Weight: 68.039 kg ANE Physical Exam - Airway Neck exam: FROM Mallampati Score: Class 2 - Pulmonary Pulmonary: no respiratory distress - Cardiovascular Cardiovascular: regular rate and rhythym - ASA Status ASA Status: II ANE Anesthesia Plan Anesthesia Plan: general endotracheal anesthesia
[2017-04-02] MEDS ORDERED: MIDAZOLAM 2 MG/2 ML VIAL ONE (19:44)
[2017-04-02] MEDS ORDERED: ROCURONIUM 50 MG/5 ML VIAL ONE (19:46)
[2017-04-02] MEDS ORDERED: fentaNYL 100 MCG/2 ML INJ ONE ×2 (19:46→20:28)
[2017-04-02] MEDS ORDERED: PROPOFOL 200 MG/20 ML VIAL ONE (19:46)
[2017-04-02] MEDS ORDERED: SUGAMMADEX SODIUM 200 MG/2 ML VIAL IVP ONE (20:48)
--- NOTE | 2017-04-02 21:16 | POSTOPPROG ---
Post Op Note Date of Operation: 04/02/17 Surgeon: David Carrington (, FACS) Anesthesiologist: Declan Swanson MD Anesthesia: GET(General Endotracheal) Pre-op Diagnosis: pelvic abscess Procedure: laparoscopic drainage pelvic abscess Findings: abscess in the pouch of Leeroy Inf/Abcess present in the surg proc area at time of surgery?: Yes Depth: Organ Space EBL: Minimal (10 ml) Drains: Lazaro Vasquez Specimen(s): culture
[2017-04-02] MEDS ORDERED: ONDANSETRON 4 MG/2 ML VIAL IVP PRN ×2 (21:17→21:19)
[2017-04-02] MEDS ORDERED: HYDROmorphone HCL/NS 0.5 MG/ML SYR IVP PRN (21:17)
[2017-04-02] MEDS ORDERED: PROMETHAZINE HCL 25 MG/ML INJ IVP PRN ×2 (21:17→21:19)
[2017-04-02] MEDS ORDERED: OXYCODONE/APAP 5/325 TAB PO PRN (21:17)
[2017-04-02] MEDS ORDERED: NALOXONE HCL 0.4 MG/ML INJ IVP PRN (21:19)
[2017-04-02] MEDS ORDERED: ALBUTEROL 3 ML DEYVIAL IH PRN (21:19)
[2017-04-02] MEDS ORDERED: HYDROmorphONE/DILAUDID 1 MG/ML INJ IVP PRN (21:19)
[2017-04-02] MEDS ORDERED: fentaNYL 100 MCG/2 ML INJ IVP PRN (21:19)
[2017-04-02] MEDS ORDERED: PHENYLEPHRINE HCL 100 MCG/ML SYR IVP PRN (21:19)
[2017-04-02] MEDS ORDERED: LR 1,000 ML IV SCH (21:30)
[2017-04-02] MEDS ORDERED: BISACODYL 10 MG SUPP PR PRN (21:40)
[2017-04-02] MEDS ORDERED: MAGNESIUM HYDROXIDE 30 ML UDCUP PO PRN (21:40)
[2017-04-02] MEDS ORDERED: POLYETHYLENE GLYCOL 3350 17 GM PKT PO PRN (21:40)
[2017-04-02] MEDS ORDERED: LACTULOSE 20 GM/30 ML UDCUP PO PRN (21:40)
--- NOTE | 2017-04-02 22:10 | GOP ---
[f rep st] OPERATIVE REPORT DATE OF OPERATION: 04/02/2017 SURGEON: David Carrington MD TURNING MACHINE SET UP OPERATOR: Declan Swanson MD. PREOPERATIVE DIAGNOSIS: 1. Pelvic abscess. 2. Diverticulitis. 3. Multiple uterine fibroids. 4. History of pelvic endometriosis. POSTOPERATIVE DIAGNOSIS: 1. Pelvic abscess. 2. Diverticulitis. 3. Multiple uterine fibroids. 4. History of pelvic endometriosis. PROCEDURE PERFORMED: Laparoscopic drainage of pelvic abscess. FINDINGS: Pelvic abscess in the deep pelvic recess, pouch of Leeroy between the uterus and rectum. Sample submitted for culture and sensitivity. Additional findings include resolving sigmoid diverti culitis; enlarged uterus with exophytic fibroid from the right cornua; extensive adhesions between sm all bowel, colon, uterus, and pelvic side wall; no free abdominal fluid or evidence of peritonitis. ESTIMATED BLOOD LOSS: For the procedure was 10 mL. DESCRIPTION OF PROCEDURE: After informed consent was obtained, the patient was brought to the operat ing room and placed under general anesthesia. A Humphrey catheter was used to drain the bladder. The a bdomen was prepped and draped in the usual fashion. Before proceeding, a time-out and identification of the patient was performed. 0.25% Marcaine was used to infiltrate all incision sites. A longitudinal incision was made through t he base of the umbilicus and carried through skin and subcutaneous tissues. Dissection was carried o ut just below the umbilical stalk directly into the peritoneal cavity, and a 12 mm port was establish ed and used to create a pneumoperitoneum with CO2 gas to a pressure of 15 mmHg. A 30-degree scope wa s introduced. Two additional 5 mm ports were placed in the right and left lower quadrants under dire ct visualization. There were no anterior abdominal wall adhesions to speak of. The sigmoid colon wa s noted to be edematous with what appeared to be resolving diverticulitis, but there was no fluid in the abdominal cavity and no evidence of peritonitis. The sigmoid colon was gently retracted cephalad , and using a second blunt-tipped probe, the colon was gently from the back wall and fundus of the uterus using a sweeping [id number] motion with a blunt-tipped grasper. Adhesions were most dense on the right side where patient had undergone a prior oophorectomy. Ultimately, the abscess w as entered deep in the pelvis, and approximately 400 cc of green pus was evacuated using a suction ir rigator. Sample was submitted for aerobes and anaerobes. After the cavity had been irrigated, a 10 mm flat Lazaro-Vasquez drain was brought onto the field and passed through the 12 mm port site. This was positioned into the abscess and the end of the drain brought through the left lower quadrant 5 mm port site. The drain was carefully positioned within the abscess cavity and secured to the skin wit h 4-0 Prolene suture. Operative field appeared hemostatic. The pneumoperitoneum was evacuated. The umbilical fascial defect was repaired with 0 Vicryl suture. The subcutaneous tissues and skin were closed with 4-0 Monocryl suture in a subcuticular fashion. Topical Dermabond was applied. The patie nt was returned to the recovery room extubated in satisfactory condition. Her drain was placed to a Lazaro-Vasquez bulb on suction. COMPLICATIONS: None. /[id number]/MODL
[2017-04-03] MEDS: HYDROmorphONE/DILAUDID 4 MG TAB PO PRN ×2 (01:21→12:02)
[2017-04-03 05:33] LABS: PLATELET COUNT 373 10^3/uL (150-400)
--- NOTE | 2017-04-03 07:50 | SOAPPROG ---
SOAP Progress Note Assessment/Plan: Assessment/plan:clinically improved s/p laparoscopic abscess drainage continue Ertapenam check cultures restart Metformin/monitor blood glucose 04/03/17 07:49 04/03/17 07:50 Subjective: resting comfortably/denies nausea Objective: Vital Signs Temp Pulse Resp BP Pulse Ox 36.8 C 89 17 104/59 L 92 04/03/17 03:33 04/03/17 03:33 04/03/17 03:33 04/03/17 03:33 04/03/17 03:33 Microbiology 04/02/17 20:42 Gram Stain - Final Pelvis - Swab Laboratory Results 04/03/17 05:03 04/03/17 05:03 04/02/17 04/03/17 04/04/17 05:59 05:59 05:59 Intake Total 2707 Output Total 195 Balance 2512 - Pending Discharge Pending Discharge Within 24 Hours: No Pending Discharge Within 48 Hours: No Physical Exam - Physical Exam General Appearance: alert, no apparent distress Respiratory: normal breath sounds Cardiac/Chest: regular rate, rhythm Abdomen: soft, distended, other (dressing with serosanguinous fluid/drain sanguinopurulent) Neuro/Psych: no motor/sensory deficits, alert, normal mood/affect ICD10 Worksheet Patient Problems: Problems Problem Status Onset Diverticulitis large intestine Acute Pelvic abscess in female Acute Type II diabetes mellitus Acute - ICD10 Problem Qualifiers (1) Pelvic abscess in female (2) Type II diabetes mellitus Qualifiers: Diabetes mellitus complication status: without complication Diabetes mellitus nursing home insulin use: without equipment operator intermodal yard use Qualified Code(s): E11.9 - Type 2 diabetes mellitus without complications
[2017-04-03] MEDS: IBUPROFEN 600 MG TAB PO SCH ×3 (09:15→21:34)
[2017-04-03] MEDS: SPIRONOLACTONE 100 MG TAB PO SCH (09:15)
[2017-04-03] MEDS: SENNOSIDES/DOCUSATE SODIUM TAB PO SCH ×2 (09:15→21:15)
[2017-04-03] MEDS: ERTAPENEM 1 GM VIAL IV SCH (09:15)
[2017-04-03] MEDS: ENOXAPARIN 40 MG/0.4 ML SYR SC SCH (09:15)
--- NOTE | 2017-04-03 18:17 | ASMTCMCOM ---
CM Note CM Note Notes: Pt admitted for fever and weakness following a recent hospitalization for acute diverticulitis. Pt s/p laproscopic abscess drainage. Spoke w/ [facility] - per Tessie, pt is an [employer] and is . Pt may need IV antibiotics on discharge, currently on Ertapenem. Discharge needs remain unclear at this time. CM will cont to follow. Current Discharge Plan: To be determined Date Signed: 04/03/2017 06:16 PM Electronically Signed By:Scarlet Banuelos RN
[2017-04-03] MEDS ORDERED: diphenhydrAMINE 25 MG CAP PO PRN (20:17)
[2017-04-04 05:08] LABS: PLATELET COUNT 335 10^3/uL (150-400)
--- NOTE | 2017-04-04 07:40 | SOAPPROG ---
SOAP Progress Note Assessment/Plan: Assessment/plan:clinically improved s/p laparoscopic abscess drainage continue Ertapenam check cultures restart Metformin/monitor blood glucose 04/03/17 07:49 04/03/17 07:50 Subjective: resting comfortably/no BM Objective: Vital Signs Temp Pulse Resp BP Pulse Ox 36.4 C 77 16 116/78 91 L 04/04/17 04:00 04/04/17 04:00 04/04/17 04:00 04/04/17 04:00 04/04/17 04:00 Microbiology 04/02/17 20:42 Gram Stain - Final Pelvis - Swab Laboratory Results 04/04/17 05:00 04/04/17 04:30 04/03/17 04/04/17 04/05/17 05:59 05:59 05:59 Intake Total 2707 1415 Output Total 195 55 Balance 2512 1360 - Pending Discharge Pending Discharge Within 24 Hours: No Pending Discharge Within 48 Hours: Yes Pending Discharge Date: 04/06/17 Pending Discharge Time: 11:00 Physical Exam - Physical Exam General Appearance: no apparent distress Abdomen: non-tender, soft, distended, other (drain serosang/incisions o.k.) Neuro/Psych: normal mood/affect, oriented x 3 ICD10 Worksheet Patient Problems: Problems Problem Status Onset Diverticulitis large intestine Acute Pelvic abscess in female Acute Type II diabetes mellitus Acute - ICD10 Problem Qualifiers (1) Pelvic abscess in female (2) Type II diabetes mellitus Qualifiers: Diabetes mellitus complication status: without complication Diabetes mellitus intermediate card tender insulin use: without senior care use Qualified Code(s): E11.9 - Type 2 diabetes mellitus without complications
[2017-04-04] MEDS: IBUPROFEN 600 MG TAB PO SCH ×3 (09:10→21:38)
[2017-04-04] MEDS: SPIRONOLACTONE 100 MG TAB PO SCH (09:10)
[2017-04-04] MEDS: SENNOSIDES/DOCUSATE SODIUM TAB PO SCH ×2 (09:11→20:50)
[2017-04-04] MEDS: ERTAPENEM 1 GM VIAL IV SCH (10:13)
[2017-04-04] MEDS: ENOXAPARIN 40 MG/0.4 ML SYR SC SCH (10:13)
--- NOTE | 2017-04-04 12:30 | SOAPPROG ---
Downtime Inpatient MD Late Entry SOAP Note: cultures showing Proteus resistant to amp/pcn. I will request ID consult as patient has had adverse rxn to quinolones.
[2017-04-04] MEDS: ESTRADIOL 0.1 MG TP SCH (13:53)
[2017-04-04] MEDS ORDERED: ALTEPLASE 2 MG VIAL IVP PRN (14:42)
[2017-04-04] MEDS ORDERED: LIDOCAINE 1% 300 MG/30 ML SDV ONE (15:55)
[2017-04-04] MEDS: metFORMIN SR 750 MG TAB.SR PO SCH (18:24)
--- NOTE | 2017-04-04 19:41 | GCON ---
[f rep st] CONSULTATION DATE OF CONSULTATION: 04/04/2017 REQUESTING PHYSICIAN: Dr. David Carrington. REASON FOR CONSULTATION: Pelvic abscess. HISTORY OF PRESENT ILLNESS: The patient is a 61-year-old female with a past medical history of recur rent diverticulitis, whom I am asked to see in consultation for a pelvic abscess associated with dive rticulitis. The patient relocated to [place] from [place] in December and describes previously havi ng approximately 4-5 episodes of diverticulitis. These were typically successfully treated with oral antibiotic therapy and the patient did not require hospitalization. On 03/21/2017, the patient was hospitalized at [facility] for diverticulitis. Symptoms at that time included fever an d lower abdominal pain. The patient was discharged on 03/25/2017 after receiving several days of Zos yn with imaging consistent with diverticulitis associated with microperforation. At the time of disc harge, she was on Augmentin. After discharge, she initially was improved, but then developed recurre nt left lower quadrant pain and fever prior to admission. The pain was such that she returned to the emergency department, at which point in time repeat CT scan was performed, which showed a new pelvic abscess measuring 8.2 x 3.1 x 6.4 cm with internal air pockets being present. This was not felt to be amenable to percutaneous drainage. Therefore, the patient underwent laparoscopic drainage of pelv ic abscess with operative findings noting 400 mL of green purulent material and evidence of diverticu litis. No concomitant peritonitis was present. The patient has been treated with ertapenem and feel s clinically improved. Cultures obtained intraoperatively have shown 3+ gram-negative rods on Gram s tain with growth of mixed intestinal mitesh including Proteus vulgaris. The patient describes having difficulty taking ciprofloxacin in the past with associated features of roaring in the head and dilshad rn about ototoxicity. She previously has received treatment for her diverticulitis with Bactrim and Augmentin, both orally. She typically would initiate Augmentin with onset of symptoms. Plans are in place ultimately to have sigmoid resection once the patient's inflammatory process has fully resolve d. Given the above findings, I am now asked to assist in her ongoing management. PAST MEDICAL HISTORY: Prediabetes, diverticulitis, and GERD. PAST SURGICAL HISTORY: Surgeries for endometriosis including oophorectomy CURRENT MEDICATIONS: Ertapenem 1 g IV daily, Lovenox 40 mg subcu daily, Motrin 600 mg p.o. three artemio es daily, metformin 1500 mg p.o. daily, spironolactone 100 mg p.o. daily. ALLERGIES: Ciprofloxacin associated with a roaring sensation in the head, codeine associated with vo miting, which represents intolerance, and Darvocet associated with pruritus. SOCIAL HISTORY: Patient does not smoke. She drinks 2 glasses of wine or beer twice a week. No drug use. 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 FAMILY HISTORY: Diabetes mellitus, bipolar disorder, and lymphoma. REVIEW OF SYSTEMS: CONSTITUTIONAL: Fever associated with initial symptoms. HEENT: Facial swelling and pruritus, possibly with Dilaudid yesterday. ABDOMEN: See HPI. SKIN: No rash. ENDOCRINE: Pr ediabetes and uses Climara patch. GASTROINTESTINAL: See HPI. PHYSICAL EXAMINATION: VITAL SIGNS: Temperature 36.5, heart rate 63, respiratory rate 14, blood pres sure 114/82, oxygen saturation 94% on room air. GENERAL: Patient is well nourished, well developed, in no acute distress. She appears nontoxic. HEENT: There is no scleral icterus, conjunctival inje ction, or conjunctival petechiae. Oropharynx is clear without lesions. Mucous membranes are moist. There is no nasal discharge. There is no tenderness over the frontal maxillary or mastoid area. NE CK: Supple without palpable lymphadenopathy or thyromegaly. CHEST: Clear to auscultation bilateral ly without adventitious sounds. Respiratory effort is normal. CARDIOVASCULAR: Regular rate and rhy thm without murmurs, gallops, or rubs. ABDOMEN: Soft, mildly tender in the lower quadrants bilatera lly; a MATTY drain is in place with serosanguineous output; bowel sounds are hypoactive. MUSCULOSKELETA L: No cyanosis, clubbing, or edema. SKIN: No rashes present. Skin is warm and dry to touch. No s tigmata of endocarditis. NEUROLOGIC: The patient is alert and interacts appropriately with the exam iner. Cranial nerves 2-12 are grossly intact. Sensation is grossly intact. Muscle tone and bulk ar e normal. LYMPHATICS: No cervical or supraclavicular nodes palpable. LABORATORY DATA: White blood cell count 6.1, hematocrit 30.3, platelets 335, neutrophils 56%, lympho cytes 35% (white blood cell count yesterday of 21.7), creatinine 0.7. Abdominal cultures as outlined above. CT scan as outlined above, which was reviewed and interpreted by me today. IMPRESSION: Pelvic abscess associated with recurrent diverticulitis: Abscess is now status post lap aroscopic drainage. Cultures are showing growth of proteus, although this is likely due to mixed ent haley mitesh including anaerobes. The patient is currently tolerating ertapenem well. Discussed with p atient treatment options including continued course of ertapenem with PICC line, as an outpatient singh lani trial of levofloxacin as a different fluoroquinolone, which would need to be combined with metron idazole. She favors continued ertapenem use at this point in time. Ultimately she will required def initive surgical management of diverticulitis in the future to prevent ongoing recurrent disease. RECOMMENDATIONS: 1. Agree with continued ertapenem 1 g intravenously daily. 2. PICC line placement. Risks and benefits of PICC line were discussed with patient today. Risks a nd benefits of antibiotic therapy were discussed with patient today. 3. Follow weekly laboratories on therapy. 4. Anticipate 14-day course of therapy in total. 5. Thank you for this consultation. We will continue to follow the patient with you. /[id number]/MODL
[2017-04-04] MEDS: HYDROmorphONE/DILAUDID 4 MG TAB PO PRN (20:50)
[2017-04-05] MEDS: HYDROmorphONE/DILAUDID 4 MG TAB PO PRN (01:33)
[2017-04-05] MEDS: HYDROmorphONE/DILAUDID 2 MG/ML INJ IVP PRN ×4 (05:01→21:19)
--- NOTE | 2017-04-05 06:55 | SOAPPROG ---
ZOEY Progress Note Assessment/Plan: Assessment/plan: s/p laparoscopic abscess drainage-pelvis, now with ileus and functional obstruction likely at the rectosigmoid junction discussed Alyse/Wilfredo and patient agrees continue Ertapenam per ID recommendation-consult appreciated! NPO for now/IV fluids/PICC monitor blood glucose 04/03/17 07:49 04/03/17 07:50 04/05/17 06:55 Subjective: Ronda starting experiencing increasing pain over the past few hours requiring parenteral narcotics. She had received Lactulose yesterday and had a BM. She has been passing some flatus. She denies nausea/emesis Objective: Vital Signs Temp Pulse Resp BP Pulse Ox 37.6 C 108 H 20 134/74 H 93 04/05/17 04:00 04/05/17 04:00 04/05/17 04:00 04/05/17 04:00 04/05/17 04:00 Microbiology 04/02/17 20:42 Gram Stain - Final Pelvis - Swab Laboratory Results 04/04/17 05:00 04/04/17 04:30 04/04/17 04/05/17 04/06/17 05:59 05:59 05:59 Intake Total 1415 1230 Output Total 55 47 Balance 1360 1183 KUB reviewed/distention of large bowel with mostly gas/drain remains in place - Pending Discharge Pending Discharge Within 24 Hours: No Physical Exam - Physical Exam General Appearance: WD/WN, alert, moderate distress Respiratory: decreased breath sounds Cardiac/Chest: regular rate, rhythm, tachycardia Abdomen: distended, other (hypoactive bowel sounds currently/incisions o.k./MATTY drainage clearing) Pelvic Exam: deferred Rectal: deferred Skin: warm/dry Neuro/Psych: alert, normal mood/affect, oriented x 3 ICD10 Worksheet Patient Problems: Problems Problem Status Onset Diverticulitis large intestine Acute Ileus, postoperative Acute Pelvic abscess in female Acute Type II diabetes mellitus Acute - ICD10 Problem Qualifiers (1) Pelvic abscess in female (2) Type II diabetes mellitus Qualifiers: Diabetes mellitus complication status: without complication Diabetes mellitus fish warden insulin use: without correction use Qualified Code(s): E11.9 - Type 2 diabetes mellitus without complications (3) Ileus, postoperative
[2017-04-05] MEDS ORDERED: BISACODYL 10 MG SUPP PR ONE (06:59)
[2017-04-05] MEDS: ERTAPENEM 1 GM VIAL IV SCH (08:37)
[2017-04-05] MEDS: LR 1,000 ML IV SCH ×2 (08:37→20:32)
[2017-04-05] MEDS: SENNOSIDES/DOCUSATE SODIUM TAB PO SCH ×2 (08:38→21:19)
[2017-04-05] MEDS: IBUPROFEN 600 MG TAB PO SCH ×3 (08:38→21:19)
[2017-04-05] MEDS: SPIRONOLACTONE 100 MG TAB PO SCH (08:38)
[2017-04-05 08:57] LABS: PLATELET COUNT 448 10^3/uL (150-400)
--- NOTE | 2017-04-05 09:40 | SOAPPROG ---
Downtime Inpatient MD Late Entry SOAP Note: repeat cbc >19K will obtain repeat CT abd/pelvis
[2017-04-05] MEDS ORDERED: IOPAMIDOL (ISOVUE-300) 100 ML BTL ONE (10:09)
--- NOTE | 2017-04-05 13:42 | PCMIDPN ---
Assessment/Plan: Assessment/Plan: 1. Pelvic abscess secondary to perforated sigmoid diverticulitis: - CX in progress, so far with Proteus and GNR LF - Expect polymicrobial process -Acute increase in abd pain and wbc today. - Ct abd reviewed from 03/21/17 and 04/02/17 -Ct abdomen pending-will follow -has MATTY drain in place with brownish material -Continue with invanz therapy for now -discussed with patient, at bedside meds invanz 1g daily- 04/03/17 Subjective: afebrile. had increase in abd pain last night which continued into this AM. FEels a little better now after pain meds. had small BM today. soft. denies sob. Objective: Vital Signs Temp Pulse Resp BP Pulse Ox 36.6 C 86 16 117/69 94 04/05/17 11:07 04/05/17 11:07 04/05/17 11:07 04/05/17 11:07 04/05/17 11:07 Microbiology 04/02/17 20:42 Gram Stain - Final Pelvis - Swab Laboratory Results 04/05/17 08:48 04/04/17 04:30 04/04/17 04/05/17 04/06/17 05:59 05:59 05:59 Intake Total 1415 1230 Output Total 55 47 10 Balance 1360 1183 -10 - Physical Exam General Appearance: alert, no apparent distress Respiratory: lungs clear Cardiac/Chest: regular rate, rhythm Extremities: No swelling Abdomen: other (bs trickle, abd distended. tender mostly on left side with mild palpation. ) ICD10 Worksheet Patient Problems: Problems Problem Status Onset Diverticulitis large intestine Acute Ileus, postoperative Acute Pelvic abscess in female Acute Type II diabetes mellitus Acute
--- NOTE | 2017-04-05 14:59 | ASMTCMCOM ---
CM Note CM Note Notes: CM met w/ pt and for dispo planning. Pt is agreeable for CM to make referrals to [facility]. Pt will most likely be able to manage providing own iv therapies. Referrals made to [facility]. CM to follow. Plan: Home infusion therapies Date Signed: 04/05/2017 02:58 PM Electronically Signed By:ANDRE Smart
[2017-04-05] MEDS: ENOXAPARIN 40 MG/0.4 ML SYR SC SCH (16:00)
[2017-04-06] MEDS: LR 1,000 ML IV SCH ×2 (05:55→16:12)
[2017-04-06 07:48] LABS: PLATELET COUNT 532 10^3/uL (150-400)
--- NOTE | 2017-04-06 07:52 | SOAPPROG ---
ZOEY Progress Note Assessment/Plan: Assessment/plan: s/p laparoscopic abscess drainage-pelvis, now with ileus and functional obstruction likely at the rectosigmoid junction resolving clinically/CT shows abscess to be adequately drained continue Ertapenam per ID recommendation-consult appreciated! advance diet monitor blood glucose 04/03/17 07:49 04/03/17 07:50 04/05/17 06:55 04/06/17 07:50 Subjective: feeling better this morning/passing flatus/2 BMs Objective: Vital Signs Temp Pulse Resp BP Pulse Ox 36.6 C 83 20 97/66 L 93 04/06/17 04:00 04/06/17 04:00 04/06/17 04:00 04/06/17 04:00 04/06/17 04:00 Microbiology 04/02/17 20:42 Gram Stain - Final Pelvis - Swab Laboratory Results 04/04/17 04:30 04/05/17 04/06/17 04/07/17 05:59 05:59 05:59 Intake Total 1230 1945 Output Total 47 1630 Balance 1183 315 Physical Exam - Physical Exam General Appearance: no apparent distress Respiratory: lungs clear, decreased breath sounds Cardiac/Chest: regular rate, rhythm Abdomen: non-tender, soft, distended, other (incisions o.k./MATTY seropurulent) Pelvic Exam: deferred Rectal: deferred Extremities: normal range of motion Neuro/Psych: no motor/sensory deficits ICD10 Worksheet Patient Problems: Problems Problem Status Onset Diverticulitis large intestine Acute Ileus, postoperative Acute Pelvic abscess in female Acute Type II diabetes mellitus Acute - ICD10 Problem Qualifiers (1) Pelvic abscess in female (2) Type II diabetes mellitus Qualifiers: Diabetes mellitus complication status: without complication Diabetes mellitus [facility] insulin use: without [facility] use Qualified Code(s): E11.9 - Type 2 diabetes mellitus without complications (3) Ileus, postoperative
[2017-04-06] MEDS: ERTAPENEM 1 GM VIAL IV SCH (09:14)
[2017-04-06] MEDS: ENOXAPARIN 40 MG/0.4 ML SYR SC SCH (09:15)
[2017-04-06] MEDS: SENNOSIDES/DOCUSATE SODIUM TAB PO SCH ×2 (09:15→21:21)
[2017-04-06] MEDS: IBUPROFEN 600 MG TAB PO SCH ×3 (09:15→21:21)
[2017-04-06] MEDS: SPIRONOLACTONE 100 MG TAB PO SCH (09:15)
[2017-04-06] MEDS: HYDROmorphONE/DILAUDID 4 MG TAB PO PRN ×3 (11:38→21:21)
[2017-04-06] MEDS ORDERED: ESTRADIOL 0.025 MG PATCH TD SCH (13:25)
--- NOTE | 2017-04-06 15:35 | PCMIDPN ---
Assessment/Plan: Assessment: Sigmoid diverticulitis with pericolonic abscess. Abscess is drained. Patient is feeling somewhat better. Had a difficult night the night before last but last night with somewhat improved. She continues on ertapenem monotherapy. Abscess fluid is growing Proteus vulgaris as well as a lactose fermenting gram- negative john that is yet to be identified. Plan: 1. Continue IV ertapenem. 2. Follow clinical course. 3. Plan home IV antibiotics for a total course of 2 weeks. 4. Follow-up with surgery about plans for elective sigmoidectomy. Subjective: Patient is sitting up in a chair in her hospital room. is in room with her. She is feeling improved. No fevers or chills. Objective: Ertapenem # 4 Vital Signs Temp Pulse Resp BP Pulse Ox 36.6 C 99 16 97/77 L 93 04/06/17 07:58 04/06/17 07:58 04/06/17 07:58 04/06/17 07:58 04/06/17 07:58 Microbiology 04/02/17 20:42 Gram Stain - Final Pelvis - Swab Laboratory Results 04/06/17 07:35 04/04/17 04:30 04/05/17 04/06/17 04/07/17 05:59 05:59 05:59 Intake Total 1230 1945 Output Total 47 1630 400 Balance 1183 315 -400 - Physical Exam General Appearance: WD/WN, alert, no apparent distress, non-toxic Respiratory: lungs clear, normal breath sounds, No respiratory distress Cardiac/Chest: regular rate, rhythm, No tachycardia Skin: normal color, warm/dry, No rash Neuro/Psych: alert, normal mood/affect, oriented x 3 ICD10 Worksheet Patient Problems: Problems Problem Status Onset Diverticulitis large intestine Acute Ileus, postoperative Acute Pelvic abscess in female Acute Type II diabetes mellitus Acute
[2017-04-06] MEDS: MEROPENEM 1 GM in STERILE WATER INJ 20 ML IV SCH (21:22)
[2017-04-07] MEDS: LR 1,000 ML IV SCH ×2 (01:24→11:40)
[2017-04-07] MEDS: HYDROmorphONE/DILAUDID 4 MG TAB PO PRN ×2 (01:26→09:52)
[2017-04-07] MEDS: MEROPENEM 1 GM in STERILE WATER INJ 20 ML IV SCH ×3 (05:41→22:38)
[2017-04-07 05:59] LABS: PLATELET COUNT 442 10^3/uL (150-400)
[2017-04-07] MEDS: IBUPROFEN 600 MG TAB PO SCH ×2 (08:07→16:51)
[2017-04-07] MEDS: SENNOSIDES/DOCUSATE SODIUM TAB PO SCH (08:08)
[2017-04-07] MEDS: SPIRONOLACTONE 100 MG TAB PO SCH (08:08)
[2017-04-07] MEDS: ENOXAPARIN 40 MG/0.4 ML SYR SC SCH (08:08)
--- NOTE | 2017-04-07 11:11 | SOAPPROG ---
ZOEY Progress Note Assessment/Plan: Assessment/plan: s/p laparoscopic abscess drainage-pelvis, now with clear evidence of fecal fistula/improved with no further fever and leukocytosis is improving. I discussed the findings with Ronda and her and am not optimistic that this will close spontaneously. I recommended proceeding with sigmoid resection and end colostomy. She agrees Surgery to be scheduled for later today monitor blood glucose 04/03/17 07:49 04/03/17 07:50 04/05/17 06:55 04/06/17 07:50 04/07/17 11:08 Subjective: feeling "punky" this morning/two loose stools Objective: Vital Signs Temp Pulse Resp BP Pulse Ox 36.7 C 83 18 102/68 93 04/07/17 07:43 04/07/17 07:43 04/07/17 07:43 04/07/17 07:43 04/07/17 07:43 Microbiology 04/02/17 20:42 Gram Stain - Final Pelvis - Swab Laboratory Results 04/07/17 05:35 04/04/17 04:30 04/06/17 04/07/17 04/08/17 05:59 05:59 05:59 Intake Total 1945 2906 Output Total 1630 2670 100 Balance 315 236 -100 - Pending Discharge Pending Discharge Within 24 Hours: No Pending Discharge Within 48 Hours: No Physical Exam - Physical Exam General Appearance: mild distress Abdomen: soft, distended, other (fecal drainage MATTY) ICD10 Worksheet Patient Problems: Problems Problem Status Onset Diverticulitis large intestine Acute Ileus, postoperative Acute Pelvic abscess in female Acute Type II diabetes mellitus Acute - ICD10 Problem Qualifiers (1) Pelvic abscess in female (2) Type II diabetes mellitus Qualifiers: Diabetes mellitus complication status: without complication Diabetes mellitus halfway insulin use: without halfway use Qualified Code(s): E11.9 - Type 2 diabetes mellitus without complications (3) Ileus, postoperative
[2017-04-07] MEDS ORDERED: BUPIVACAINE 0.5% 10 ML SDV ONE ×2 (15:23)
--- NOTE | 2017-04-07 16:49 | ASMTCMCOM ---
CM Note CM Note Notes: Met with pt and homecare rep [place] from [facility], pt states a change in plans. She will have surgery tonight with likely colostomy. CM w/continue to follow, [place] at [facility] notified. DC Plan: Homecare (RN) + [facility] Date Signed: 04/07/2017 04:48 PM Electronically Signed By:Stephanie Galvan RN
[2017-04-07] MEDS ORDERED: LR 1,000 ML IV ONE (18:09)
--- NOTE | 2017-04-07 18:31 | PDANEPAE ---
ANE History of Present Illness 61 year old female with PMHx of diverticulitis s/p placement of abscess drain now for sigmoid resection and end colosotomy. Patient with pre-diabetes, not diabetes. She is on metformin for prediabetes. ANE Past Medical History - Cardiovascular History Hx Hypertension: No Hx Arrhythmias: No Hx Chest Pain: No Hx Coronary Artery / Peripheral Vascular Disease: No Hx CHF / Valvular Disease: No Hx Palpitations: Yes Cardiovascular History Comment: PAC's - Pulmonary History Hx COPD: No Hx Asthma/Reactive Airway Disease: No Hx Recent Upper Respiratory Infection: No Hx Oxygen in Use at Home: No Hx Sleep Apnea: No Sleep Apnea Screening Result - Last Documented: Negative - Endocrine History Hx Diabetes: No Hypothyroid: No Hyperthyroid: No Endocrine History Comment: Prediabetes (insulin resistance and placed on metformin by city comptroller) - Renal History Hx Renal Disorders: No - Liver History Hx Hepatic Disorders: No - Neurological & Psychiatric Hx Hx Neurological and Psychiatric Disorders: No - Cancer History Hx Cancer: No - Congenital Disorder History Hx Congenital Disorders: No - GI History Gastrointestinal History Comment: diverticulitis. hiatal hernia with GERD - Chronic Pain History Chronic Pain: No ANE Review of Systems Review of systems is: negative Review of Systems: - Exercise capacity Exercise capacity: >=4 METS ANE Patient History - Allergies Allergies/Adverse Reactions: ciprofloxacin [From Cipro] Allergy (Verified 04/02/17 13:08) Other-Enter Comments codeine Allergy (Verified 04/02/17 13:08) Vomiting propoxyphene [From Darvocet-N] Allergy (Verified 04/02/17 13:08) Itching - Home Medications Home medications: home medication list seen and reviewed Home Medications: RX: Lansoprazole [Prevacid] 30 mg PO HS 03/21/17 [Last Taken 04/02/17] RX: Progesterone, Micronized [Progesterone] 100 mg PO HS 03/21/17 [Last Taken ] RX: Spironolactone 100 mg PO DAILY 03/21/17 [Last Taken 04/02/17] RX: metFORMIN HCL [Metformin HCl ER] 1,500 mg PO DAILY@1800 03/21/17 [Last Taken 04/01/17] RX: Herbals/Supplements -Info Only 1 ea PO BID 04/02/17 [Last Taken 04/02/17] - NPO status NPO Since - Liquids (Date): 04/07/17 NPO Since - Liquids (Time): 10:00 NPO Since - Solids (Date): 04/07/17 NPO Since - Solids (Time): 10:00 - Anes Hx Anes Hx: no prior problems - Smoking Hx Smoking Status: Never smoked Marijuana use: No - Alcohol Use Alcohol Use: Occasionally (1-2 beers 2-3 days/week) ANE Labs/Vital Signs - Labs Result Diagrams: 04/07/17 05:35 04/04/17 04:30 - Vital Signs Vital Signs: reviewed preoperatively; see RN documention for details Blood Pressure: 133/70 Heart Rate: 95 Respiratory Rate: 19 O2 Sat (%): 94 Height: 165.1 cm Weight: 68.039 kg ANE Physical Exam - Airway Neck exam: FROM (C6-C7 with herniated disc) Mallampati Score: Class 2 Mouth exam: normal dental/mouth exam - Pulmonary Pulmonary: no respiratory distress, clear to auscultation - Cardiovascular Cardiovascular: regular rate and rhythym - ASA Status ASA Status: II ANE Anesthesia Plan Anesthesia Plan: general endotracheal anesthesia Total IV Anesthesia: No
[2017-04-07] MEDS ORDERED: PROPOFOL 200 MG/20 ML VIAL ONE (18:50)
[2017-04-07] MEDS ORDERED: fentaNYL 100 MCG/2 ML INJ ONE ×3 (18:50→21:47)
[2017-04-07] MEDS ORDERED: ROCURONIUM 50 MG/5 ML VIAL ONE ×2 (19:16→20:12)
[2017-04-07] MEDS ORDERED: DEXAMETHASONE 4 MG/ML VIAL ONE (19:16)
[2017-04-07] MEDS ORDERED: ONDANSETRON 4 MG/2 ML VIAL ONE (19:16)
[2017-04-07] MEDS ORDERED: LIDOCAINE 2% 5 ML SDV ONE (19:16)
[2017-04-07] MEDS ORDERED: PHENYLEPHRINE HCL 100 MCG/ML SYR ONE (19:16)
[2017-04-07] MEDS ORDERED: BUPIVACAINE 0.25% 30 ML SDV ONE ×2 (19:29→21:13)
[2017-04-07] MEDS ORDERED: BUPIVACAINE 0.25% 270 ML in PUMP SET 1 EA NB SCH (19:30)
[2017-04-07] MEDS ORDERED: PHM DO NOT USE-BUPIVACAINE 0.25% THORACOTOMY MISC SCH (19:30)
--- NOTE | 2017-04-07 19:33 | PCMIDPN ---
Assessment/Plan: Assessment/Plan: * Pelvic abscess associated with perforated sigmoid diverticulitis status post abscess drainage: Patient with fecal in drainage via MATTY bulb today. Associated with increased abdominal pain. 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 Will continue meropenem given Enterobacter isolate with ertapenem resistance by susceptibility testing with retained meropenem susceptibility. Will review this further with lab in see if confirmatory testing is being performed. Clinical findings and plan reviewed with patient, and Dr. Carrington. 04/07/17 19:30 Subjective: Patient with drainage of feculent material via MATTY bulb today and increased abdominal pain. Objective: Vital Signs Temp Pulse Resp BP Pulse Ox 36.3 C 95 19 133/70 H 94 04/07/17 18:07 04/07/17 18:39 04/07/17 18:39 04/07/17 18:39 04/07/17 18:39 Microbiology 04/02/17 20:42 Gram Stain - Final Pelvis - Swab Laboratory Results 04/07/17 05:35 04/04/17 04:30 04/06/17 04/07/17 04/08/17 05:59 05:59 05:59 Intake Total 1945 2906 Output Total 1630 2670 515 Balance 315 236 -515 Meropenem # 2 Antibiotics # 5 - Physical Exam General Appearance: alert, no apparent distress EENT: No scleral icterus Abdomen: distended (Mild), tender (Diffusely), other (feculent output in MATTY bulb ) Skin: No rash - Line/s RUE PICC Lines: No drainage, No erythema ICD10 Worksheet Patient Problems: Problems Problem Status Onset Diverticulitis large intestine Acute Ileus, postoperative Acute Pelvic abscess in female Acute Type II diabetes mellitus Acute
[2017-04-07] MEDS ORDERED: HYDROmorphONE/DILAUDID 2 MG/ML INJ ONE ×2 (19:41→21:47)
[2017-04-07] MEDS ORDERED: ONDANSETRON 4 MG/2 ML VIAL IVP PRN (19:44)
[2017-04-07] MEDS ORDERED: NALOXONE HCL 0.4 MG/ML INJ IVP PRN ×2 (19:44→21:44)
[2017-04-07] MEDS ORDERED: epHEDrine SULFATE 10 MG/ML SYR IVP PRN (19:44)
[2017-04-07] MEDS ORDERED: LR 500 ML IV PRN (19:44)
[2017-04-07] MEDS ORDERED: PHENYLEPHRINE HCL 100 MCG/ML SYR IVP PRN (19:44)
[2017-04-07] MEDS ORDERED: PROMETHAZINE HCL 25 MG/ML INJ IVP PRN (19:44)
[2017-04-07] MEDS ORDERED: SUGAMMADEX SODIUM 200 MG/2 ML VIAL IVP ONE (20:12)
--- NOTE | 2017-04-07 21:44 | POSTOPPROG ---
Post Op Note Date of Operation: 04/07/17 Surgeon: David Carrington (, FACS) Armature Winder Repairer: Germaine Barrientos RN-FA Anesthesiologist: Ean Murrell MD Anesthesia: GET(General Endotracheal) Pre-op Diagnosis: ruptured diverticulum, sigmoid with peritonitis Post-op Diagnosis: same Procedure: sigmoid colectomy/end colostomy/Wallace's procedure Findings: extensive pelvic adhesions/sigmoid diverticulitis Inf/Abcess present in the surg proc area at time of surgery?: Yes Depth: Organ Space EBL: 50-100 (50) Drains: Lazaro Vasquez
[2017-04-07] MEDS: HYDROmorphONE/DILAUDID 2 MG/ML INJ IVP PRN ×5 (21:51→22:46)
[2017-04-07] MEDS: ERTAPENEM 1 GM VIAL IV SCH (22:07)
[2017-04-07] MEDS: fentaNYL 100 MCG/2 ML INJ IVP PRN ×2 (22:07→22:17)
[2017-04-07] MEDS: HYDROmorphONE/DILAUDID 6 MG/30 ML PCA IV PRN (23:51)
[2017-04-08] MEDS: metFORMIN SR 750 MG TAB.SR PO SCH ×2 (00:53→18:37)
[2017-04-08] MEDS: IBUPROFEN 600 MG TAB PO SCH ×2 (00:54→08:49)
[2017-04-08] MEDS: SENNOSIDES/DOCUSATE SODIUM TAB PO SCH ×3 (00:54→21:59)
--- NOTE | 2017-04-08 02:21 | GOP ---
[f rep st] OPERATIVE REPORT DATE OF OPERATION: 04/07/2017 SURGEON: David Carrington MD, FACS [facility] PHYSICIST: Germaine Rodríguez RN-FA. ANESTHESIA: General endotracheal. ANESTHESIOLOGIST: Ean Murrell MD. PREOPERATIVE DIAGNOSIS: 1. Pelvic abscess, status post laparoscopic drainage of sigmoid diverticulitis. 2. Fecal fistula. 3. Extensive intraabdominal adhesions from prior surgeries. POSTOPERATIVE DIAGNOSIS: 1. Pelvic abscess, status post laparoscopic drainage of sigmoid diverticulitis. 2. Fecal fistula. 3. Extensive intraabdominal adhesions from prior surgeries. PROCEDURE PERFORMED: Laparoscopic sigmoid colectomy and end colostomy with Wallace's pouch capsule. FINDINGS: Moderate peritoneal contamination from previously drained abscess. moderate fecal contamination. Chronically and acutely inflamed sigmoid colon. Enlarged uterus with uterine fibroids. Extensive adhesions between small bowel , uterus, and right pelvic sidewall at the site of prior right salpingo- oophorectomy. Adhesions between dome of bladder and anterior abdominal wall ESTIMATED BLOOD LOSS: 50 mL. DESCRIPTION OF PROCEDURE: After informed consent was obtained, the patient was brought to the operating room and placed supine and under general anesthesia, a Humphrey catheter was placed. The abdomen was prepped and draped in usual fashion. The patient had a left lower quadrant drain that was left in place as the abdomen was prepped. Before proceeding, a time-out and identification of the patient was performed. The abdomen was entered in a low midline incision. While entering the peritoneum sharply the dome of the bladder was inadvertently incised where it was adherent to the abdominal wall; this was immediately repaired with 2 layers of 3-0 Vicryl suture. The peritoneotomy was extended cephalad and peritoneal cavity was entered and explored. There was no foul odor upon entering the peritoneal cavity. However, there was extensive fibrin of purulent exudate involving the omentum. Several loops of small bowel concentrated around the pelvic drain that had been placed laparoscopically 5 days before. The drain was removed from the field and discarded. The small bowel loops were gently using blunt dissection and the bowel was packed cephalad away from the sigmoid colon. Along the right pelvic sidewall, more dense adhesions were encountered and these were sharply dissected, the small bowel from the pelvic sidewall in the location of the right salpingo-oophorectomy performed in the past. The patient's uterus was retracted inferiorly and the Omni-Tract retractor was used to facilitate exposure. The sigmoid colon was indurated. The mesentery was thickened. It was mobilized down into the pelvis. No sammy perforation site could be identified at time of the surgery. The sigmoid mesentery was incised close to the bowel and proximal to the area of maximum inflammation. The bowel was divided here with a single firing of the KRISTIAN 75 stapler. The mesentery and bowel distal to this were mobilized down to the distal sigmoid colon and approximately 8-10 cm of distal sigmoid colon appeared uninvolved with the acute inflammatory process and was left in place. The bowel was divided distally with a single firing of the contour stapler. The bowel was removed from the field, and the pelvis and lower abdomen were copiously irrigated with normal saline until the effluent was clear. Hemostasis was secured with the Harmonic Scalpel, suture ligatures and sparing use of cautery. The left lower quadrant stoma site was created and the descending colon was brought out into the stomal opening and secured with a [place] clamp. A 10 mm flat Lazaro-Vasquez drain was brought through a separate stab wound in the right lower quadrant and placed into the pelvis. This was secured to the skin with 3- 0 nylon suture. A clean closure was performed after changing gown and gloves. The fascia was closed with #1 PDS sutures. Subcutaneous tissues were drained with a quarter-inch [place] drain and closed with nelly. The colostomy was matured by resecting the distal staple line and submitting this for permanent section. The mucosa was everted and secured the sub-dermis with interrupted 3- 0 chromic sutures circumferentially, creating a nice stoma with approximately 1 to 1.5 cm of eversion. A colostomy bag was applied. The patient was returned extubated to the recovery room in satisfactory condition. Needle, sponge, and instrument count correct. COMPLICATIONS: None. /[id number]/MODL MTDD
[2017-04-08] MEDS: MEROPENEM 1 GM in STERILE WATER INJ 20 ML IV SCH (06:08)
[2017-04-08 06:27] LABS: PLATELET COUNT 426 10^3/uL (150-400)
[2017-04-08] MEDS: ENOXAPARIN 40 MG/0.4 ML SYR SC SCH (08:47)
[2017-04-08] MEDS: SPIRONOLACTONE 100 MG TAB PO SCH (08:48)
--- NOTE | 2017-04-08 09:30 | POSTANESTH ---
Post Anesthetic Evaluation Cardiovascular Status: Normal, Stable, Similar to Pre-Op Cond Respiratory Status: Normal, Stable, Similar to Pre-op Cond. Level of Consciousness/Mental Status: Can Participate in Eval, Mildly Sleepy, Arousable Pain Control: Adequate, Prn Tx Ordered Nausea/Vomiting Control: Adequate, Prn Tx Ordered Complications Possibly Related to Anesthesia: None Noted
--- NOTE | 2017-04-08 09:57 | SOAPPROG ---
SOAP Progress Note Assessment/Plan: Assessment/plan: stable s/p sigmoid colectomy/diverting colostomy drainage pelvic abscess Rec: sips of clears only/continue IV fluids + meds increase activity discussed with Dr. Valderrama 04/03/17 07:49 04/03/17 07:50 04/05/17 06:55 04/06/17 07:50 04/07/17 11:08 04/08/17 09:53 04/08/17 09:58 Subjective: moderate incisional pain denies nausea Objective: Vital Signs Temp Pulse Resp BP Pulse Ox 36.8 C 88 16 130/72 H 93 04/08/17 08:00 04/08/17 08:00 04/08/17 08:00 04/08/17 08:00 04/08/17 08:00 Microbiology 04/02/17 20:42 Gram Stain - Final Pelvis - Swab Laboratory Results 04/08/17 06:20 04/04/17 04:30 04/07/17 04/08/17 04/09/17 05:59 05:59 05:59 Intake Total 2906 2260 Output Total 2670 1465 Balance 236 795 - Pending Discharge Pending Discharge Within 24 Hours: No Pending Discharge Within 48 Hours: No Physical Exam - Physical Exam General Appearance: no apparent distress, mild distress Respiratory: chest non-tender, lungs clear Cardiac/Chest: normal peripheral pulses, regular rate, rhythm Abdomen: soft, distended, other (dressing over shawn drain saturated) Skin: warm/dry Lymphatic: no adenopathy Extremities: normal range of motion Neuro/Psych: alert, oriented x 3 ICD10 Worksheet Patient Problems: Problems Problem Status Onset Diverticulitis large intestine Acute Ileus, postoperative Acute Pelvic abscess in female Acute Type II diabetes mellitus Acute - ICD10 Problem Qualifiers (1) Pelvic abscess in female (2) Type II diabetes mellitus Qualifiers: Diabetes mellitus complication status: without complication Diabetes mellitus senior care insulin use: without senior care use Qualified Code(s): E11.9 - Type 2 diabetes mellitus without complications (3) Ileus, postoperative
--- NOTE | 2017-04-08 10:22 | PCMIDPN ---
Assessment/Plan: 1. Pelvic abscess secondary to perforated sigmoid diverticulitis status post laparoscopic sigmoid colectomy/and colostomy with Wallace's pouch: The patient has an unusual Enterobacter susceptibility profile, with resistance to ertapenem and susceptibility to meropenem. The micro lab feels this could be mediated by Amp C vs. porin upregulation, and apparently this can happen with Ertapenem vs. Meropenem. That said, would prefer to switch classes of antibiotic and treat with Cefepime 2 g IV q.12 hours and metronidazole 500 mg IV Q 8 hr. Patient states she has taken oral metronidazole in the past, with the development of severe metallic taste in her mouth. She would prefer to complete therapy with IV metronidazole and not switch to oral moving forward. This is understandable. Of note, the patient cannot tolerate quinolones. 2. Miscellaneous: Given fairly resistant gram-negative john as outlined above, will initiate contact isolation. Subjective: "I feel crappy."Patient feels that she is passing gas, which is creating increased abdominal discomfort. Left lower quadrant particularly uncomfortable. No nausea or vomiting. Long conversation with patient today regarding need for yellow gowns, and changing her antibiotics as outlined in the impression and plan. Patient is a former nurse in [place], and expressed understanding regarding the nuances of this antibiotic change. Objective: Meropenem 1 g IV q.8 hours day 3 (antibiotics day 6) T-max 37.1 degrees Vital Signs Temp Pulse Resp BP Pulse Ox 36.8 C 88 16 130/72 H 93 04/08/17 08:00 04/08/17 08:00 04/08/17 08:00 04/08/17 08:00 04/08/17 08:00 Microbiology 04/02/17 20:42 Gram Stain - Final Pelvis - Swab Laboratory Results 04/08/17 06:20 04/04/17 04:30 04/07/17 04/08/17 04/09/17 05:59 05:59 05:59 Intake Total 2906 2260 Output Total 2920 1465 Balance 236 795 Pelvic swab with 2+ Proteus vulgaris: Cefepime FRANCIA less than 1 1+ Enterobacter cloacae: ertapenem FRANCIA greater than 1, Meropenem FRANCIA less than 0.5 cefepime FRANCIA less than 1 - Physical Exam General Appearance: alert, no apparent distress EENT: pharynx normal, No thrush Respiratory: lungs clear Cardiac/Chest: regular rate, rhythm Abdomen: distended, other (Stoma pink, colostomy bag empty. Diffuse discomfort , positive bowel sounds) Skin: No rash ICD10 Worksheet Patient Problems: Problems Problem Status Onset Diverticulitis large intestine Acute Ileus, postoperative Acute Pelvic abscess in female Acute Type II diabetes mellitus Acute
[2017-04-08] MEDS: KETOROLAC 15 MG/1 ML SDV IVP SCH ×3 (13:40→23:44)
[2017-04-08] MEDS: CEFEPIME HCL 2 GM in STERILE WATER INJ 12.5 ML IV SCH ×2 (13:42→23:45)
[2017-04-08] MEDS: LR 1,000 ML IV SCH (14:06)
[2017-04-09] MEDS: HYDROmorphONE/DILAUDID 6 MG/30 ML PCA IV PRN (00:50)
[2017-04-09] MEDS: LR 1,000 ML IV SCH ×3 (01:42→23:42)
[2017-04-09 05:40] LABS: PLATELET COUNT 349 10^3/uL (150-400)
[2017-04-09] MEDS: KETOROLAC 15 MG/1 ML SDV IVP SCH ×4 (06:13→23:31)
[2017-04-09] MEDS: ENOXAPARIN 40 MG/0.4 ML SYR SC SCH (08:43)
[2017-04-09] MEDS: SENNOSIDES/DOCUSATE SODIUM TAB PO SCH ×2 (08:44→20:48)
[2017-04-09] MEDS: SPIRONOLACTONE 100 MG TAB PO SCH (08:44)
[2017-04-09] MEDS: CEFEPIME HCL 2 GM in STERILE WATER INJ 12.5 ML IV SCH ×2 (08:45→20:48)
--- NOTE | 2017-04-09 08:47 | SOAPPROG ---
SOAP Progress Note Assessment/Plan: Assessment/plan: stable s/p sigmoid colectomy/diverting colostomy drainage pelvic abscess ID consult appreciated Rec: clear liquid diet/decrease IV fluids transition to oral meds increase activity 04/03/17 07:49 04/03/17 07:50 04/05/17 06:55 04/06/17 07:50 04/07/17 11:08 04/08/17 09:53 04/08/17 09:58 04/09/17 08:44 Subjective: resting more comfortably/passing small amount of gas per her colostomy Objective: Vital Signs Temp Pulse Resp BP Pulse Ox 37.1 C 104 H 16 111/63 91 L 04/09/17 07:59 04/09/17 07:59 04/09/17 07:59 04/09/17 07:59 04/09/17 07:59 Microbiology 04/02/17 20:42 Gram Stain - Final Pelvis - Swab Laboratory Results 04/09/17 05:15 04/08/17 13:00 04/08/17 04/09/17 04/10/17 05:59 05:59 05:59 Intake Total 2260 1125 1131 Output Total 1465 2580 Balance 795 -1455 1131 - Pending Discharge Pending Discharge Within 24 Hours: No Pending Discharge Within 48 Hours: No Physical Exam - Physical Exam General Appearance: no apparent distress Abdomen: soft, distended, other (stoma pink/mild edema/incision o.k./MATTY serous/ dressing changed) Pelvic Exam: deferred Rectal: deferred ICD10 Worksheet Patient Problems: Problems Problem Status Onset Diverticulitis large intestine Acute Ileus, postoperative Acute Pelvic abscess in female Acute Type II diabetes mellitus Acute - ICD10 Problem Qualifiers (1) Pelvic abscess in female (2) Type II diabetes mellitus Qualifiers: Diabetes mellitus complication status: without complication Diabetes mellitus shelter insulin use: without intermediate manager use Qualified Code(s): E11.9 - Type 2 diabetes mellitus without complications (3) Ileus, postoperative
--- NOTE | 2017-04-09 15:54 | ASMTCMCOM ---
CM Note CM Note Notes: Pt went for surgery yesterday, now has colostomy. She will discharge home w/ [facility] for IV infusion and [facility]. DC Plan: [facility] + [facility] Date Signed: 04/09/2017 03:53 PM Electronically Signed By:Stephanie Galvan RN
[2017-04-09] MEDS: metFORMIN SR 750 MG TAB.SR PO SCH (17:53)
--- NOTE | 2017-04-09 19:00 | PCMIDPN ---
Assessment/Plan: Assessment/Plan: 1. Pelvic abscess secondary to perforated sigmoid diverticulitis: - s/p sigmoid colectomy, end colostom. - CX in progress, so far with Proteus and Enterobacter cloacae. - Expect polymicrobial process - Ct abd reviewed from 03/21/17 and 04/02/17 , 04/05/17 -Currently on cefepime and flagyl - wbc improved today. recheck tomorrow. -reviewed labs, cultures with patient, -care coordinated with Rn medshayy cefeime 2g q12-04/08/17 flagyl 500mg q8-04/08/17 s/p lotusmaryann Subjective: afebrile. she feels more distended today. has been walking hallways, and sitting up in chair. denies sob,cough. Objective: Vital Signs Temp Pulse Resp BP Pulse Ox 36.9 C 96 16 109/71 97 04/09/17 18:00 04/09/17 18:00 04/09/17 18:00 04/09/17 18:00 04/09/17 18:00 Microbiology 04/02/17 20:42 Gram Stain - Final Pelvis - Swab Laboratory Results 04/09/17 05:15 04/08/17 13:00 04/08/17 04/09/17 04/10/17 05:59 05:59 05:59 Intake Total 2260 1125 2331 Output Total 1465 2580 2004 Balance 795 -6210 326 - Physical Exam General Appearance: alert, no apparent distress Respiratory: coarse breath sounds (mild) Cardiac/Chest: regular rate, rhythm Extremities: No swelling Abdomen: other (trickle BS, abd distended. esa drain wiht serous drainage, colostomy.) Pelvic Exam: ortega Skin: No erythema ICD10 Worksheet Patient Problems: Problems Problem Status Onset Diverticulitis large intestine Acute Ileus, postoperative Acute Pelvic abscess in female Acute Type II diabetes mellitus Acute
[2017-04-10] MEDS: KETOROLAC 15 MG/1 ML SDV IVP SCH ×4 (05:53→22:59)
--- NOTE | 2017-04-10 07:11 | SOAPPROG ---
SOAP Progress Note Assessment/Plan: Assessment/plan: stable s/p sigmoid colectomy/diverting colostomy drainage pelvic abscess ID consult appreciated Rec: clear liquid diet/decrease IV fluids transition to oral meds increase activity 04/03/17 07:49 04/03/17 07:50 04/05/17 06:55 04/06/17 07:50 04/07/17 11:08 04/08/17 09:53 04/08/17 09:58 04/09/17 08:44 Subjective: feels distended/small amount of gas Objective: Vital Signs Temp Pulse Resp BP Pulse Ox 37.1 C 82 16 130/82 H 93 04/10/17 06:00 04/10/17 06:00 04/10/17 06:00 04/10/17 06:00 04/10/17 06:00 Laboratory Results 04/09/17 05:15 04/08/17 13:00 04/09/17 04/10/17 04/11/17 05:59 05:59 05:59 Intake Total 112 3551 Output Total 3545 0896 Balance -1455 -994 - Time Spent With Patient Time Spent With Patient: 20 - Pending Discharge Pending Discharge Within 24 Hours: No Pending Discharge Within 48 Hours: No Physical Exam - Physical Exam General Appearance: mild distress Neck: non-tender Respiratory: chest non-tender, lungs clear Cardiac/Chest: regular rate, rhythm Abdomen: soft, distended, other (incisions only) Skin: normal color Neuro/Psych: alert, oriented x 3 ICD10 Worksheet Patient Problems: Problems Problem Status Onset Diverticulitis large intestine Acute Ileus, postoperative Acute Pelvic abscess in female Acute Type II diabetes mellitus Acute - ICD10 Problem Qualifiers (1) Pelvic abscess in female (2) Type II diabetes mellitus Qualifiers: Diabetes mellitus complication status: without complication Diabetes mellitus termite technician insulin use: without intermediate use Qualified Code(s): E11.9 - Type 2 diabetes mellitus without complications (3) Ileus, postoperative
[2017-04-10] MEDS: ENOXAPARIN 40 MG/0.4 ML SYR SC SCH (09:06)
[2017-04-10] MEDS: CEFEPIME HCL 2 GM in STERILE WATER INJ 12.5 ML IV SCH ×2 (09:08→20:30)
[2017-04-10] MEDS: SENNOSIDES/DOCUSATE SODIUM TAB PO SCH ×2 (09:12→20:30)
[2017-04-10] MEDS: SPIRONOLACTONE 100 MG TAB PO SCH (09:12)
[2017-04-10] MEDS: LR 1,000 ML IV SCH ×2 (11:54→23:00)
[2017-04-10] MEDS: HYDROmorphONE/DILAUDID 6 MG/30 ML PCA IV PRN (12:09)
--- NOTE | 2017-04-10 13:25 | WOCRNPDOC ---
JOSÉ Advanced Assessment Note - Colostomy Assessment, Advanced Colostomy Stoma Colostomy Appliance Intact: Yes Colostomy Appliance Currently in Use: Two Piece Flat, 2 3/4, Cut to Fit Stoma Color: Red Stoma Turgor: Moist Stoma Shape: Oval Stoma Height: Protruding Mucocutaneus Junction: Intact Colostomy Effluent: Serosangenous Colostomy Details: End, Wallace's Pouch Peristomal Skin: Intact Colostomy Comment/Treatment Details: Removed existing appliance to assess colostomy stoma and peristomal skin. Stoma is oval-shaped, moist, red, with good protrusion. Stoma currently measuring 44mm from top to bottom, 51 mm side to side. Serosanguinous output noted in pouch, however there was trace stool in stomal os during cleansing. Mucocutaneous junction is intact, no peristomal skin issues noted. Initiated teaching today, including how to measure stoma using measuring guide, how to care for stoma and peristomal skin, how often to change appliance/empty pouch, and dietary guidelines. 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 She gave her verbal consent to have samples sent to her home for her to trial after DC. salesperson driver will round again tomorrow for additional teaching. Report given to ambulance assistant Zena.
--- NOTE | 2017-04-10 16:09 | PCMIDPN ---
Assessment/Plan: Assessment/Plan: 1. Pelvic abscess secondary to perforated sigmoid diverticulitis: - s/p sigmoid colectomy, end colostom. - CX in progress, so far with Proteus and Enterobacter cloacae. - Expect polymicrobial process - Ct abd reviewed from 03/21/17 and 04/02/17 , 04/05/17 -Currently on cefepime and flagyl - wbc improved. recheck tomorrow. -reviewed labs, cultures with patient -care coordinated with Rn meds cefeime 2g q12-04/08/17 flagyl 500mg q8-04/08/17 s/p invanz, merefelice Subjective: afebrile. feels better than this morning. less distended. passing gas through colostomy. no bm's yet. denies sob. Objective: Vital Signs Temp Pulse Resp BP Pulse Ox 36.9 C 82 16 120/78 96 04/10/17 16:00 04/10/17 16:00 04/10/17 16:00 04/10/17 16:00 04/10/17 16:00 Laboratory Results 04/09/17 05:15 04/08/17 13:00 04/09/17 04/10/17 04/11/17 05:59 05:59 05:59 Intake Total 1125 3556 Output Total 9190 4330 2210 [facility] -1455 -994 -2210 - Physical Exam General Appearance: alert, no apparent distress Respiratory: lungs clear Cardiac/Chest: regular rate, rhythm Extremities: No swelling Abdomen: normal bowel sounds, soft, distended, other (colostomy. shawn drain out. esa drain present. ) Skin: No erythema ICD10 Worksheet Patient Problems: Problems Problem Status Onset Diverticulitis large intestine Acute Ileus, postoperative Acute Pelvic abscess in female Acute Type II diabetes mellitus Acute
[2017-04-10] MEDS: metFORMIN SR 750 MG TAB.SR PO SCH (18:03)
[2017-04-11] MEDS: KETOROLAC 15 MG/1 ML SDV IVP SCH (05:03)
[2017-04-11 05:21] LABS: PLATELET COUNT 417 10^3/uL (150-400)
--- NOTE | 2017-04-11 06:52 | SOAPPROG ---
SOJAYDE Progress Note Assessment/Plan: Assessment/plan: resolving peritonitis/resolving ileus stable s/p sigmoid colectomy/diverting colostomy drainage pelvic abscess ID consult appreciated Rec: advance diet transition to oral meds increase activity 04/03/17 07:49 04/03/17 07:50 04/05/17 06:55 04/06/17 07:50 04/07/17 11:08 04/08/17 09:53 04/08/17 09:58 04/09/17 08:44 04/11/17 06:51 Objective: Vital Signs Temp Pulse Resp BP Pulse Ox 36.6 C 89 18 142/99 H 96 04/11/17 06:00 04/11/17 06:00 04/11/17 06:00 04/11/17 06:00 04/11/17 06:00 Laboratory Results 04/11/17 05:00 04/11/17 05:00 04/10/17 04/11/17 04/12/17 05:59 05:59 05:59 Intake Total 3553 1390 Output Total 3863 5485 Balance -994 -3675 ICD10 Worksheet Patient Problems: Problems Problem Status Onset Diverticulitis large intestine Acute Ileus, postoperative Acute Pelvic abscess in female Acute Type II diabetes mellitus Acute - ICD10 Problem Qualifiers (1) Pelvic abscess in female (2) Type II diabetes mellitus Qualifiers: Diabetes mellitus complication status: without complication Diabetes mellitus terminal operator insulin use: without terminal operator use Qualified Code(s): E11.9 - Type 2 diabetes mellitus without complications (3) Ileus, postoperative
[2017-04-11] MEDS: FAMOTIDINE 20 MG TAB PO SCH (07:41)
[2017-04-11] MEDS: ENOXAPARIN 40 MG/0.4 ML SYR SC SCH (07:43)
[2017-04-11] MEDS: IBUPROFEN 600 MG TAB PO SCH ×3 (07:43→21:37)
[2017-04-11] MEDS: SPIRONOLACTONE 100 MG TAB PO SCH (07:43)
[2017-04-11] MEDS: SENNOSIDES/DOCUSATE SODIUM TAB PO SCH ×2 (07:59→21:38)
[2017-04-11] MEDS: CEFEPIME HCL 2 GM in STERILE WATER INJ 12.5 ML IV SCH ×2 (09:11→21:38)
--- NOTE | 2017-04-11 12:11 | PCMIDPN ---
Assessment/Plan: Assessment: Sigmoid diverticulitis with pericolonic abscess. Abscess is drained. Patient is also status post sigmoidectomy on 04/08/2017. Patient is being covered with cefepime and Flagyl given isolation of an Enterobacter cloacae with some evidence of resistance to ertapenem. Plan: 1. Continue IV cefepime and Flagyl. 2. Follow clinical course. 3. Plan home IV antibiotics for a total course of 2 weeks from sigmoidectomy. Subjective: Patient is resting comfortably in her hospital bed. She attempted to ambulate around the [place]ager earlier today and got very tired. No fevers or chills. Having some good output from her ostomy. Objective: Cefepime # 3 Flagyl # 3 Vital Signs Temp Pulse Resp BP Pulse Ox 36.6 C 94 14 120/83 H 94 04/11/17 06:00 04/11/17 07:47 04/11/17 07:47 04/11/17 07:47 04/11/17 07:47 Microbiology 04/02/17 20:42 Gram Stain - Final Pelvis - Swab Anaerobic Culture - Final Proteus Vulgaris/Penneri Enterobacter Cloacae Complex Laboratory Results 04/11/17 05:00 04/11/17 05:00 04/10/17 04/11/17 04/12/17 05:59 05:59 05:59 Intake Total 3556 1390 Output Total 4550 5485 Balance -994 -4093 - Physical Exam General Appearance: WD/WN, alert, no apparent distress, non-toxic Respiratory: lungs clear, normal breath sounds, No respiratory distress Cardiac/Chest: regular rate, rhythm, No tachycardia Abdomen: soft, other (Ostomy in place. Healthy appearing.), No mass Skin: normal color, warm/dry, No rash Neuro/Psych: alert, normal mood/affect, oriented x 3 ICD10 Worksheet Patient Problems: Problems Problem Status Onset Diverticulitis large intestine Acute Ileus, postoperative Acute Pelvic abscess in female Acute Type II diabetes mellitus Acute
[2017-04-11] MEDS: HYDROmorphONE/DILAUDID 4 MG TAB PO PRN (13:30)
[2017-04-11] MEDS: ESTRADIOL 0.1 MG TP SCH (14:34)
--- NOTE | 2017-04-11 15:45 | ASMTCMCOM ---
CM Note CM Note Notes: CM spoke w/ Marc RN regarding d/c POC. The plan remains the same. Pt will d/c with [facility] when medically stable. Updates sent to [facility]. CM to follow. Plan: [facility] Date Signed: 04/11/2017 03:44 PM Electronically Signed By:ANDRE Smart
[2017-04-11] MEDS: metFORMIN SR 750 MG TAB.SR PO SCH (17:01)
--- NOTE | 2017-04-11 18:35 | WOCRNPDOC ---
WOCRN Advanced Assessment Note - Colostomy Assessment, Advanced Colostomy Stoma Colostomy Appliance Intact: No (small leak at 3 oclock) Colostomy Appliance Currently in Use: Two Piece Flat, 2 3/4, Cut to Fit Stoma Color: Red Stoma Turgor: Moist Stoma Shape: Oval Stoma Height: Protruding Mucocutaneus Junction: Intact Colostomy Details: End, Wallace's Pouch Peristomal Skin: Intact Colostomy Comment/Treatment Details: Patient changed appliance today. There was a small area of exposed skin at 12 oclock, and though reticent, patient agreed to change the wafer again with reconcilement clerk. Under the wafer the stool had leaked under the barrier at 3 oclock but there was no erythema nor breakdown at this time. Patient performed entire pouch change independently, though reconcilement clerk did measure a new template for the patient as the old one was too large. Barrier for patient is not having a mirror to be able to see the ostomy during the change. All questions answered and teaching reinforced. Patient very capable. real estate representative will sign off. Relayed this to [facility] [place]. Home supplies will be ordered. Patient preference is a 2 piece rick just like the one hospital carries. Will ask case managment to finish the paperwork tomorrow.
--- NOTE | 2017-04-12 08:25 | SOAPPROG ---
SOAP Progress Note Assessment/Plan: Assessment/plan: resolving peritonitis/resolving ileus/decreasing MATTY output stable s/p sigmoid colectomy/diverting colostomy drainage pelvic abscess ID consult appreciated Rec: anticipate MATTY drain removal tomorrow/DC planning for 04/1404/03/17 07:49 04/03/17 07:50 04/05/17 06:55 04/06/17 07:50 04/07/17 11:08 04/08/17 09:53 04/08/17 09:58 04/09/17 08:44 04/11/17 06:51 04/12/17 08:22 Subjective: resting comfortably/very weak tolerated diet advance Objective: Vital Signs Temp Pulse Resp BP Pulse Ox 36.6 C 86 16 130/87 H 95 04/12/17 04:00 04/12/17 04:00 04/12/17 04:00 04/12/17 04:00 04/12/17 04:00 Microbiology 04/02/17 20:42 Gram Stain - Final Pelvis - Swab Anaerobic Culture - Final Proteus Vulgaris/Penneri Enterobacter Cloacae Complex Laboratory Results 04/11/17 05:00 04/11/17 05:00 04/11/17 04/12/17 04/13/17 05:59 05:59 05:59 Intake Total 1390 1517.5 Output Total 5485 2605 Balance -4095 -1087.5 Physical Exam - Physical Exam General Appearance: alert, mild distress Respiratory: lungs clear, normal breath sounds Cardiac/Chest: regular rate, rhythm Abdomen: non-tender, soft Pelvic Exam: deferred Rectal: deferred Extremities: normal range of motion, non-tender Neuro/Psych: no motor/sensory deficits, alert ICD10 Worksheet Patient Problems: Problems Problem Status Onset Diverticulitis large intestine Acute Ileus, postoperative Acute Pelvic abscess in female Acute Type II diabetes mellitus Acute - ICD10 Problem Qualifiers (1) Pelvic abscess in female (2) Type II diabetes mellitus Qualifiers: Diabetes mellitus complication status: without complication Diabetes mellitus ware cleaner insulin use: without halfway use Qualified Code(s): E11.9 - Type 2 diabetes mellitus without complications (3) Ileus, postoperative
[2017-04-12] MEDS: IBUPROFEN 600 MG TAB PO SCH ×3 (08:55→21:03)
[2017-04-12] MEDS: SPIRONOLACTONE 100 MG TAB PO SCH (08:55)
[2017-04-12] MEDS: CEFEPIME HCL 2 GM in STERILE WATER INJ 12.5 ML IV SCH ×2 (08:57→21:03)
[2017-04-12] MEDS: FAMOTIDINE 20 MG TAB PO SCH (08:57)
[2017-04-12] MEDS: ENOXAPARIN 40 MG/0.4 ML SYR SC SCH (08:57)
[2017-04-12] MEDS: SENNOSIDES/DOCUSATE SODIUM TAB PO SCH ×2 (10:05→21:10)
[2017-04-12] MEDS: HYDROmorphONE/DILAUDID 4 MG TAB PO PRN (13:48)
--- NOTE | 2017-04-12 13:55 | PCMIDPN ---
Assessment/Plan: Assessment/Plan: 1. Pelvic abscess secondary to perforated sigmoid diverticulitis: - s/p sigmoid colectomy, end colostomy. - CX in progress, with Proteus and Enterobacter cloacae. - Expect polymicrobial process - Ct abd reviewed from 03/21/17 and 04/02/17 , 04/05/17 -Currently on cefepime and flagyl - wbc improved.labs stable. -reviewed labs with patient. meds cefepime 2g q12-04/08/17 flagyl 500mg q8-04/08/17 s/p invanz, merem Subjective: afebrile. feeling better overall. now with stools in colostomy. less distended. denies sob. Objective: Vital Signs Temp Pulse Resp BP Pulse Ox 36.6 C 93 12 122/79 H 95 04/12/17 08:00 04/12/17 08:00 04/12/17 08:00 04/12/17 08:00 04/12/17 08:00 Microbiology 04/02/17 20:42 Gram Stain - Final Pelvis - Swab Anaerobic Culture - Final Proteus Vulgaris/Penneri Enterobacter Cloacae Complex Laboratory Results 04/11/17 05:00 04/11/17 05:00 04/11/17 04/12/17 04/13/17 05:59 05:59 05:59 Intake Total 1390 1517.5 Output Total 5485 2605 Balance -4095 -1087.5 - Physical Exam General Appearance: alert, no apparent distress Respiratory: lungs clear Cardiac/Chest: regular rate, rhythm Extremities: No swelling Abdomen: normal bowel sounds, non-tender, soft, other (less distended. stool in colostomy now. ) Skin: No erythema ICD10 Worksheet Patient Problems: Problems Problem Status Onset Diverticulitis large intestine Acute Ileus, postoperative Acute Pelvic abscess in female Acute Type II diabetes mellitus Acute
[2017-04-12] MEDS: metFORMIN SR 750 MG TAB.SR PO SCH (18:35)
[2017-04-12] MEDS ORDERED: OXYCODONE/APAP 5/325 TAB PO PRN (23:30)
[2017-04-13] MEDS: ENOXAPARIN 40 MG/0.4 ML SYR SC SCH (07:53)
[2017-04-13] MEDS: IBUPROFEN 600 MG TAB PO SCH ×3 (07:54→20:49)
[2017-04-13] MEDS: FAMOTIDINE 20 MG TAB PO SCH (07:54)
[2017-04-13] MEDS: SPIRONOLACTONE 100 MG TAB PO SCH (07:54)
[2017-04-13] MEDS: SENNOSIDES/DOCUSATE SODIUM TAB PO SCH ×2 (08:13→20:55)
--- NOTE | 2017-04-13 09:12 | SOAPPROG ---
SOAP Progress Note Assessment/Plan: Assessment/plan: resolving peritonitis/resolving ileus/moderate persistant MATTY output s/p sigmoid colectomy/diverting colostomy drainage pelvic abscess ID consult appreciated Rec: will leave MATTY in for now and monitor/DC planning for 04/14 increase diet and activity dietary consult 04/03/17 07:49 04/03/17 07:50 04/05/17 06:55 04/06/17 07:50 04/07/17 11:08 04/08/17 09:53 04/08/17 09:58 04/09/17 08:44 04/11/17 06:51 04/12/17 08:22 04/13/17 09:09 Subjective: passed some mucous and old stool per rectum some cramps after eating/no emesis Objective: Vital Signs Temp Pulse Resp BP Pulse Ox 36.3 C 98 14 109/81 H 95 04/13/17 08:00 04/13/17 08:00 04/13/17 08:00 04/13/17 08:00 04/13/17 08:00 Laboratory Results 04/11/17 05:00 04/11/17 05:00 04/12/17 04/13/17 04/14/17 05:59 05:59 05:59 Intake Total 1517.5 Output Total 2605 1485 Balance -1087.5 -1485 - Pending Discharge Pending Discharge Within 24 Hours: Yes Pending Discharge Date: 04/14/17 Pending Discharge Time: 11:00 Physical Exam - Physical Exam General Appearance: alert, no apparent distress Cardiac/Chest: regular rate, rhythm Abdomen: soft, distended, other (midline incision healing without signs of infection/LLQ ostomoy functional/mildly distended with hypoactive bowel sounds) ICD10 Worksheet Patient Problems: Problems Problem Status Onset Diverticulitis large intestine Acute Ileus, postoperative Acute Pelvic abscess in female Acute Type II diabetes mellitus Acute - ICD10 Problem Qualifiers (1) Pelvic abscess in female (2) Type II diabetes mellitus Qualifiers: Diabetes mellitus complication status: without complication Diabetes mellitus rn long term care insulin use: without rn long term care use Qualified Code(s): E11.9 - Type 2 diabetes mellitus without complications (3) Ileus, postoperative
[2017-04-13] MEDS: CEFEPIME HCL 2 GM in STERILE WATER INJ 12.5 ML IV SCH ×2 (09:13→20:49)
--- NOTE | 2017-04-13 14:09 | ASMTCMCOM ---
CM Note CM Note Notes: Form for ostomy supplies signed by Dr Carrington and faxed to [facility]. Marilyn notified of possible dc on /Tue. DC Plan: Home w/[facility] and [facility] home [facility] Date Signed: 04/13/2017 02:08 PM Electronically Signed By:Stephanie Galvan RN
[2017-04-13] MEDS: metFORMIN SR 750 MG TAB.SR PO SCH (17:19)
[2017-04-13 21:48] VITALS: O2SAT 95
[2017-04-14 07:26] VITALS: BP 91/72; PULSE 92; RESP 18; TEMP 97.6
[2017-04-14] MEDS ORDERED: HYDROmorphONE/DILAUDID 4 MG TAB PO PRN (07:58)
[2017-04-14] MEDS ORDERED: metroNIDAZOLE 500 MG TAB PO SCH (08:00)
[2017-04-14] MEDS: CEFEPIME HCL 2 GM in STERILE WATER INJ 12.5 ML IV SCH (08:04)
--- NOTE | 2017-04-14 08:10 | PDIAF ---
- Diagnosis Code Status: Full Code - Medication Management Discharge Medications: Medications to Continue on Transfer Lansoprazole [Prevacid] 30 mg PO HS 03/21/17 [Last Taken 04/02/17] Progesterone, Micronized [Progesterone] 100 mg PO HS 03/21/17 [Last Taken ] Spironolactone 100 mg PO DAILY 03/21/17 [Last Taken 04/02/17] metFORMIN HCL [Metformin HCl ER] 1,500 mg PO DAILY@1800 03/21/17 [Last Taken ] Estradiol [Climara] 0.025 mg TD We@0900 patch 03/25/17 [Last Taken 03/30/17] Herbals/Supplements -Info Only 1 ea PO BID 04/02/17 [Last Taken 04/02/17] Cefepime HCl [Maxipime] 2 gm IV Q12HRS #20 vial 04/14/17 [Last Taken Unknown] HYDROmorphone HCL [Dilaudid 4 mg (*)] 4 mg PO Q4HRS PRN #20 tab 04/14/17 [Last Taken Unknown] Ibuprofen [Motrin (*)] 600 mg PO TID #30 tab 04/14/17 [Last Taken Unknown] Spironolactone [Aldactone 100 MG (*)] 100 mg PO DAILY tab 04/14/17 [Last Taken Unknown] Sterile Water Inj [Sterile Water] 10 ml IV Q12HRS #20 syr 04/14/17 [Last Taken Unknown] diphenhydrAMINE [Benadryl 25 MG (*)] 25 mg PO Q6 PRN cap 04/14/17 [Last Taken Unknown] metroNIDAZOLE [Flagyl 500 mg (*)] 500 mg PO Q8HRS #30 tab 04/14/17 [Last Taken Unknown] Fdc Antibiotic Stop Date: 04/24/17 Discharge Medications: Refer to the Discharge Home Medication list for PRN reason. PICC Care - Routine: Yes - Orders Services needed: Home Care, Registered Nurse Home Care Face to Face: I certify that this patient was under my care and that I had the required [id number] encounter meeting the encounter requirements on the discharge day. My findings support the fact that the patient is homebound as defined in Home Care Face to Face Continued: CMS Chapter 7 Medicare Benefits Manual 30.1.1 , The condition of the patient is such that there exists a normal inability to leave home and consequently, leaving home would require a considerable and taxing effort. Isolation Type: Contact Isolation Diet Recommendation: no restrictions on diet Diet Texture: Regular Texture Diet Wound Care Instructions: empty and record MATTY output BID. colostomy appliance change prn Sutures/[place] Site: abdominal incision Date to Remove Sutures/[place]: 04/18/17 (Dr. Carrington' office) Activity/Weight Bearing Restrictions: no lifting over 25 pounds Equipment: ostomy supplies - Follow Up Care Current Providers and Referrals: David Carrington MD [Medical Doctor] - Bonita Ni MD [Primary Care Provider] - As per Instructions
--- NOTE | 2017-04-14 08:20 | PDDCSUM ---
Discharge Summary Discharge Summary: #[id number] Discharge Summary Dictated Tirso Carrington MD, FACS
--- NOTE | 2017-04-14 08:46 | GDS ---
[f rep st] DISCHARGE SUMMARY DISCHARGE DIAGNOSES: 1. Perforated diverticulitis with pelvic abscess. 2. History of type 2 diabetes mellitus. 3. Postoperative ileus. PROCEDURES PERFORMED: 1. April 02, 2017, laparoscopic drainage of pelvic abscess. 2. April, sigmoid resection with diverting colostomy and Wallace. HOSPITAL COURSE: For details see admission history and physical. Please see dictated summary. Ludmila solis, the patient is a 61-year-old female, who I had met prior to this hospitalization when she was on the medical service for diverticulitis. The patient was clinically improved and was discharged home on Augmentin on 03/25/2017. The patient was scheduled to follow up with me in the office and was ad mitted to the hospital emergently on 04/02/2017, for fever and worsening pelvic pain. CT at that artemio e, showed a pelvic abscess that was not accessible to IR drainage. She was brought to the operating room and underwent laparoscopic drainage. Her Lazaro-Vasquez drainage was clearing for the first 2 da ys after surgery and her white blood cell count returned to normal. Cultures grew out Proteus vulgar is penneri and Enterobacter cloaca that was particularly resistant to ampicillin, sulbactam, cefazoli n, cefoxitin, ceftriaxone, and ertapenem as well as piperacillin and tazobactam. It was sensitive to levofloxacin however, the patient has a quinolone allergy. ID was consulted and initially she was p laced on meropenem and subsequently on cefepime, to which the organism was sensitive and Flagyl for a dditional anaerobic coverage. The Proteus species was also resistant to ampicillin, cefazolin, and c eftriaxone. On approximately the third postoperative day, the patient experienced an increase in abd ominal pain and a repeat CT scan was performed, which showed the drain to be in good position and wit hout any significant reaccumulation of fluid. Observation was continued and on April 07, 2017, the dianne curtis was noted to have fecal material coming out of her Lazaro-Vasquez drain. At this point, I recom mended proceeding to sigmoid resection and diverting colostomy, and brought her to the operating room that evening for surgery. She was found to have a more diffuse lower abdominal peritonitis and unde rwent sigmoid resection with Wallace procedure and drain placement. Following this surgery, her [facility] te blood cell count, which had previously risen, had returned back to normal and she was continued on antibiotics as described above. Her Lazaro-Vasquez drainage exceeded 400 mL by the third postoperati ve day, but then subsequently subsided and remained clear. Her incision was healing well at time of discharge without sign of infection. She had previously had a [place] drain coming out of the lower end of the incision, which I removed on the third postoperative day. She had a brief postoperative i leus. After her colostomy began functioning, she was advanced in her diet which she tolerated well. She was placed on VTE prophylaxis perioperatively after both surgeries and ulcer prophylaxis with Pe pcid 20 mg p.o. daily. At time of discharge, she was afebrile, ambulatory and was changing her own o stomy appliance. Home health care was requested for cefepime infusion. She was switched to oral Fla gyl, and will return to my office in the upcoming week for staple removal. CONDITION AT TIME OF DISCHARGE: Improved. DISCHARGE MEDICATIONS: Patient will resume metformin 1500 mg p.o. daily, spironolactone 100 mg p.o. daily, progesterone 100 mg p.o. at bedtime, Prevacid 30 mg p.o. at bedtime, estradiol 0.025 mg patch q.week, herbal supplements. In addition, will take hydromorphone 4 mg p.o. q.4 hours p.r.n. pain #20 , ibuprofen 600 mg p.o. three times daily #30, cefepime 2 g IV q.12 hours for an additional 10 days, metronidazole 500 mg p.o. q.8 hours for an additional 10 days, p.r.n. Benadryl for itching. /[id number]/MODL
[2017-04-14] MEDS: ENOXAPARIN 40 MG/0.4 ML SYR SC SCH (08:59)
[2017-04-14] MEDS: FAMOTIDINE 20 MG TAB PO SCH (09:00)
[2017-04-14] MEDS: SENNOSIDES/DOCUSATE SODIUM TAB PO SCH (09:00)
[2017-04-14] MEDS: SPIRONOLACTONE 100 MG TAB PO SCH (09:01)
--- NOTE | 2017-04-14 09:25 | PDIAF ---
- Diagnosis Diagnosis: Pelvic abscess Code Status: Full Code - Medication Management Discharge Medications: Medications to Continue on Transfer Lansoprazole [Prevacid] 30 mg PO HS 03/21/17 [Last Taken 04/02/17] Progesterone, Micronized [Progesterone] 100 mg PO HS 03/21/17 [Last Taken ] Spironolactone 100 mg PO DAILY 03/21/17 [Last Taken 04/02/17] metFORMIN HCL [Metformin HCl ER] 1,500 mg PO DAILY@1800 03/21/17 [Last Taken ] Estradiol [Climara] 0.025 mg TD We@0900 patch 03/25/17 [Last Taken 03/30/17] Herbals/Supplements -Info Only 1 ea PO BID 04/02/17 [Last Taken 04/02/17] Cefepime HCl [Maxipime] 2 gm IV Q12HRS #20 vial 04/14/17 [Last Taken Unknown] HYDROmorphone HCL [Dilaudid 4 mg (*)] 4 mg PO Q4HRS PRN #20 tab 04/14/17 [Last Taken Unknown] Ibuprofen [Motrin (*)] 600 mg PO TID #30 tab 04/14/17 [Last Taken Unknown] Spironolactone [Aldactone 100 MG (*)] 100 mg PO DAILY tab 04/14/17 [Last Taken Unknown] Sterile Water Inj [Sterile Water] 10 ml IV Q12HRS #20 syr 04/14/17 [Last Taken Unknown] diphenhydrAMINE [Benadryl 25 MG (*)] 25 mg PO Q6 PRN cap 04/14/17 [Last Taken Unknown] metroNIDAZOLE [Flagyl 500 mg (*)] 500 mg PO Q8HRS #30 tab 04/14/17 [Last Taken Unknown] Police Or [employer] Officer Antibiotics: Cefepime 2 g IV q.8 hours, Flagyl 500 mg p.o. Q.8 hours Alf Antibiotic Stop Date: 04/24/17 Discharge Medications: Refer to the Discharge Home Medication list for PRN reason. PICC Care - Routine: Yes - Orders Services needed: Home Care, Registered Nurse Home Care Face to Face: I certify that this patient was under my care and that I had the required [id number] encounter meeting the encounter requirements on the discharge day. My findings support the fact that the patient is homebound as defined in Home Care Face to Face Continued: [facility] Chapter 7 Medicare Benefits Manual 30.1.1 , The condition of the patient is such that there exists a normal inability to leave home and consequently, leaving home would require a considerable and taxing effort. Isolation Type: Contact Isolation Diet Recommendation: no restrictions on diet Diet Texture: Regular Texture Diet Wound Care Instructions: empty and record MATTY output BID. colostomy appliance change prn Sutures/[place] Site: abdominal incision Date to Remove Sutures/[place]: 04/18/17 (Dr. Carrington' office) Activity/Weight Bearing Restrictions: no lifting over 25 pounds Equipment: ostomy supplies - Labs/Radiology CBC w/diff Date: 04/18/17 CMP Date: 04/18/17 - Follow Up Care Current Providers and Referrals: David Carrington MD [Medical Doctor] - Bonita Ni MD [Primary Care Provider] - As per Instructions Jalen Asencio MD [Medical Doctor] - 04/20/17 10:30 am
--- NOTE | 2017-04-14 10:13 | PCMIDPN ---
Assessment/Plan: Assessment/Plan: * Pelvic abscess associated with perforated sigmoid diverticulitis status post abscess drainage and sigmoid resection: Clinically improved postoperatively. Completing 2 weeks of cefepime and metronidazole postoperatively. Side effects of cefepime and metronidazole reviewed with patient today including need to avoid alcohol with metronidazole and potential for peripheral neuropathy with metronidazole. Antibiotics will continue through 04/24/2017. Patient will follow up in my office next week for ongoing assessment. 04/14/17 10:10 Subjective: Plans for patient to be discharged today. No abdominal pain. Tolerating cefepime and metronidazole well. Objective: Vital Signs Temp Pulse Resp BP Pulse Ox 36.4 C 92 18 91/72 L 95 04/14/17 07:25 04/14/17 07:25 04/14/17 07:25 04/14/17 07:25 04/14/17 07:25 Laboratory Results 04/11/17 05:00 04/11/17 05:00 04/13/17 04/14/17 04/15/17 05:59 05:59 05:59 Intake Total 2120 Output Total 1485 425 Balance -1485 1695 Cefepime # 6 Metronidazole # 6 Antibiotic stop date 04/24/2017 - Physical Exam General Appearance: alert, no apparent distress EENT: No scleral icterus, No thrush Abdomen: non-tender, other (Midline incision with intact staple line without erythema or drainage), No distended Skin: No rash - Line/s RUE PICC Lines: No drainage, No erythema ICD10 Worksheet Patient Problems: Problems Problem Status Onset Diverticulitis large intestine Acute Ileus, postoperative Acute Pelvic abscess in female Acute Type II diabetes mellitus Acute
--- NOTE | 2017-04-14 10:16 | PDIAF ---
- Diagnosis Diagnosis: Pelvic abscess Code Status: Full Code - Medication Management Discharge Medications: Medications to Continue on Transfer Lansoprazole [Prevacid] 30 mg PO HS 03/21/17 [Last Taken 04/02/17] Progesterone, Micronized [Progesterone] 100 mg PO HS 03/21/17 [Last Taken ] Spironolactone 100 mg PO DAILY 03/21/17 [Last Taken 04/02/17] metFORMIN HCL [Metformin HCl ER] 1,500 mg PO DAILY@1800 03/21/17 [Last Taken ] Estradiol [Climara] 0.025 mg TD We@0900 patch 03/25/17 [Last Taken 03/30/17] Herbals/Supplements -Info Only 1 ea PO BID 04/02/17 [Last Taken 04/02/17] Cefepime HCl [Maxipime] 2 gm IV Q12HRS #20 vial 04/14/17 [Last Taken Unknown] HYDROmorphone HCL [Dilaudid 4 mg (*)] 4 mg PO Q4HRS PRN #20 tab 04/14/17 [Last Taken Unknown] Ibuprofen [Motrin (*)] 600 mg PO TID #30 tab 04/14/17 [Last Taken Unknown] Spironolactone [Aldactone 100 MG (*)] 100 mg PO DAILY tab 04/14/17 [Last Taken Unknown] Sterile Water Inj [Sterile Water] 10 ml IV Q12HRS #20 syr 04/14/17 [Last Taken Unknown] diphenhydrAMINE [Benadryl 25 MG (*)] 25 mg PO Q6 PRN cap 04/14/17 [Last Taken Unknown] metroNIDAZOLE [Flagyl 500 mg (*)] 500 mg PO Q8HRS #30 tab 04/14/17 [Last Taken Unknown] Civil Drafter Antibiotics: Cefepime 2 g IV q.12 hours, Flagyl 500 mg p.o. Q.8 hours Correction Antibiotic Stop Date: 04/24/17 Discharge Medications: Refer to the Discharge Home Medication list for PRN reason. PICC Care - Routine: Yes - Orders Services needed: Home Care, Registered Nurse Home Care Face to Face: I certify that this patient was under my care and that I had the required [id number] encounter meeting the encounter requirements on the discharge day. My findings support the fact that the patient is homebound as defined in Home Care Face to Face Continued: [facility] Chapter 7 Medicare Benefits Manual 30.1.1 , The condition of the patient is such that there exists a normal inability to leave home and consequently, leaving home would require a considerable and taxing effort. Isolation Type: Contact Isolation Diet Recommendation: no restrictions on diet Diet Texture: Regular Texture Diet Wound Care Instructions: empty and record MATTY output BID. colostomy appliance change prn Sutures/[place] Site: abdominal incision Date to Remove Sutures/[place]: 04/18/17 (Dr. Carrington' office) Activity/Weight Bearing Restrictions: no lifting over 25 pounds Equipment: ostomy supplies - Labs/Radiology CBC w/diff Date: 04/18/17 CMP Date: 04/18/17 - Follow Up Care Current Providers and Referrals: David Carrington MD [Medical Doctor] - Jalen Asencio MD [Medical Doctor] - 04/20/17 10:30 am Bonita Ni MD [Primary Care Provider] - As per Instructions
[2017-04-14] MEDS: IBUPROFEN 600 MG TAB PO SCH (11:15)
--- NOTE | 2017-04-14 12:11 | ASMTLACE ---
LACE Length of stay for Answers: 7-13 days current admission Acuity / Level of Answers: Yes Care: Did the patient have an inpatient admission? Comorbidities - select Answers: Diabetes (uncontrolled or all that apply controlled) # of Emergency department Answers: 0 visits in the last 6 months Score: 9 Date Signed: 04/14/2017 12:11 PM Electronically Signed By:Stephanie Galvan RN
--- NOTE | 2017-04-15 17:37 | ASDISCHSUM ---
Discharge Information Plan Status:IV ABX/Infusion Medically Cleared to Leave: Discharge Date:04/14/2017 12:51 PM D/C Disposition:Home Health Service [facility] D/C Disposition:Home, Routine, Self-Care Projected Discharge Date:04/14/2017 11:00 AM Transportation at D/C:Family Discharge Delay Reason: Follow-Up Date:04/14/2017 11:00 AM Discharge Slot: Final Diagnosis: Placement Information Referral Type:Home Infusion Referral ID:[id number] Provider Name:[facility] ([facility]) Address 1:[address] Address 2: City:[place] Selection Factors: State:[place] Referral Type:*Home Health Care Services Referral ID:[id number] Provider Name:[facility] Address 1:[address] Phone Number: Address 2: Fax Number: [facility] Selection Factors: State:[place] Patient Contact Information Contact Name:KEI Relationship: Address:[address] Work Phone: City:[facility] Phone: State/Zip Code:[place] [address] Email: Financial Information Financial Class:HMO and PPO Plans Primary Plan Desc:HMO [place] [employer] Primary Plan Number:[id number] Secondary Plan Desc: Secondary Plan Number: Assessment Information [facility] CM Progress Note CM Note CM Note Notes: Pt admitted for fever and weakness following a recent hospitalization for acute diverticulitis. Pt s/p laproscopic abscess drainage. 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 Pt may need IV antibiotics on discharge, currently on Ertapenem. Discharge needs remain unclear at this time. CM will cont to follow. Current Discharge Plan: To be determined Date Signed: 04/03/2017 06:16 PM Electronically Signed By:Scarlet Banuelos RN [facility] CM Progress Note CM Note CM Note Notes: CM met w/ pt and for dispo planning. Pt is agreeable for CM to make referrals to [facility]. Pt will most likely be able to manage providing own iv therapies. Referrals made to [facility]. CM to follow. Plan: Home infusion therapies Date Signed: 04/05/2017 02:58 PM Electronically Signed By:ANDRE Smart [facility] CM Progress Note CM Note CM Note Notes: Met with pt and homecare rep Alberta from [facility], pt states a change in plans. She will have surgery tonight with likely colostomy. CM w/continue to follow, [place] at [facility] notified. DC Plan: Homecare ([facility]) + judy Date Signed: 04/07/2017 04:48 PM Electronically Signed By:Stephanie Galvan RN [facility] CM Progress Note CM Note CM Note Notes: Pt went for surgery yesterday, now has colostomy. She will discharge home w/ [facility] for IV infusion and [facility]. DC Plan: [facility] Date Signed: 04/09/2017 03:53 PM Electronically Signed By:Stephanie Galvan RN [facility] CM Progress Note CM Note CM Note Notes: CM spoke w/ [facility] regarding d/c POC. The plan remains the same. Pt will d/c with [facility] and [facility] when medically stable. Updates sent to [facility]. CM to follow. Plan: [facility] and [facility] Date Signed: 04/11/2017 03:44 PM Electronically Signed By:ANDRE Smart [facility] CM Progress Note CM Note CM Note Notes: Form for ostomy supplies [facility] by Dr Carrington [facility] notified of possible dc on /Tue. DC Plan: Home w/[facility] and [facility] Date Signed: 04/13/2017 02:08 PM Electronically Signed By:Stephanie Galvan RN Case Management Discharge Plan Note Case Management Discharge Discharge Order Complete? Answers: Yes Patient to Obtain Answers: Other Notes: [facility] Transportation Arranged Answers: Family/Friends Agency/Facility Transfer Answers: Yes Report Printed & Faxed to Receiving Agency Family Notified Answers: Yes Discharge Comments Notes: D/w , final orders faxed. [place] at [facility] and Raisa at [facility] notified. RN to give pt ostomy supplies, while waiting for supplies from [facility]. Date Signed: 04/14/2017 10:55 AM Electronically Signed By:Stephanie Galvan RN LACE LACE Length of stay for Answers: 7-13 days current admission Acuity / Level of Answers: Yes Care: Did the patient have an inpatient admission? Comorbidities - select Answers: Diabetes (uncontrolled or all that apply controlled) # of Emergency department Answers: 0 visits in the last 6 months Score: 9 Date Signed: 04/14/2017 12:11 PM Electronically Signed By:Stephanie Galvan RN Intervention Information
== END 2017-04-14 12:51 | disposition home or self-care (01) | DRG 330 ==
LOC: F3E 21:52
PROVIDERS: ADMIT Surgery; ATTEND Surgery
DX: K57.20 Diverticulitis of large intestine with perforation and abscess without bleeding (principal); N99.72 Accidental puncture and laceration of a genitourinary system organ or structure during other procedure; K91.89 Other postprocedural complications and disorders of digestive system; B96.4 Proteus (mirabilis) (morganii) as the cause of diseases classified elsewhere; Z16.24 Resistance to multiple antibiotics; E11.9 Type 2 diabetes mellitus without complications; K21.9 Gastro-esophageal reflux disease without esophagitis; Z79.84 Long term (current) use of oral hypoglycemic drugs
CPT/HCPCS: 96374; C1751; J0692; J1100; J1170; J1335; J1650; J1885; J2185; J2250; J2370; J2405; J2704; J3010; Q9967

== ENCOUNTER 2017-07-15 05:51 | Inpatient (IN) | payer OTHER ==
[2017-07-15] MEDS ORDERED: ceFAZolin 2 GM/SWFI 2 GM/20 ML SYR IVP ONE (06:05)
[2017-07-15] MEDS ORDERED: LIDOCAINE 1% 2 ML INJ ID PRN (06:06)
[2017-07-15] MEDS ORDERED: LR 1,000 ML IV ONE ×2 (06:06→15:51)
--- NOTE | 2017-07-15 07:05 | PDHPUP ---
History & Physical Update H&P update statement: This history and physical update is based on an assessment of the patient which was completed after admission or registration (within 24 hours), but prior to the surgery/procedure. H&P update: H&P reviewed & patient examined, no change in patient's condition since H&P completed
[2017-07-15] MEDS ORDERED: ONDANSETRON 4 MG/2 ML VIAL IVP PRN (07:14)
[2017-07-15] MEDS ORDERED: NALOXONE HCL 0.4 MG/ML INJ IVP PRN (07:14)
[2017-07-15] MEDS ORDERED: MIDAZOLAM 2 MG/2 ML VIAL IVP ONE (07:14)
[2017-07-15] MEDS ORDERED: HYDROmorphONE/DILAUDID 1 MG/ML INJ IVP PRN (07:14)
[2017-07-15] MEDS ORDERED: DEXAMETHASONE 4 MG/ML VIAL IVP PRN (07:14)
[2017-07-15] MEDS ORDERED: ALBUTEROL 3 ML DEYVIAL IH PRN (07:14)
[2017-07-15] MEDS ORDERED: fentaNYL 100 MCG/2 ML INJ IVP PRN (07:14)
--- NOTE | 2017-07-15 07:20 | PDANEPAE ---
ANE History of Present Illness Colostomy closure ANE Past Medical History - Cardiovascular History Hx Hypertension: No Hx Arrhythmias: No Hx Chest Pain: No Hx Coronary Artery / Peripheral Vascular Disease: No Hx CHF / Valvular Disease: No Hx Palpitations: No Cardiovascular History Comment: PAC's - Pulmonary History Hx COPD: No Hx Asthma/Reactive Airway Disease: No Hx Recent Upper Respiratory Infection: No Hx Oxygen in Use at Home: No Hx Sleep Apnea: No Sleep Apnea Screening Result - Last Documented: Negative Pulmonary History Comment: seasonal allergies - Neurologic History Hx Cerebrovascular Accident: No Hx Seizures: No Hx Dementia: No - Endocrine History Hx Diabetes: No Endocrine History Comment: Prediabetes (insulin resistance and placed on metformin by charge rn) - Renal History Hx Renal Disorders: No - Liver History Hx Hepatic Disorders: No - Neurological & Psychiatric Hx Hx Neurological and Psychiatric Disorders: No - Cancer History Hx Cancer: No - Congenital Disorder History Hx Congenital Disorders: No - GI History Hx Gastrointestinal Disorders: Yes Gastrointestinal History Comment: diverticulitis. hiatal hernia with GERD - Other Health History Other Health History: endometriosis - Chronic Pain History Chronic Pain: Yes (lower back) - Surgical History Prior Surgeries: microperferations. colectomy. 2 diagnostic laps for ovarian cysts, right oophorectomy. blelphroplasty,face and neck lift ANE Review of Systems Review of Systems: - Exercise capacity Exercise capacity: >=4 METS METS (RN): 4 METS ANE Patient History - Allergies Allergies/Adverse Reactions: ciprofloxacin [From Cipro] Allergy (Verified 06/15/17 10:39) Other-Enter Comments codeine Allergy (Verified 06/15/17 10:39) Vomiting propoxyphene [From Darvocet-N] Allergy (Verified 06/15/17 10:39) Itching - Home Medications Home Medications: Lansoprazole [Prevacid] 30 mg PO HS 03/21/17 [Last Taken 07/13/17] Progesterone, Micronized [Progesterone] 100 mg PO HS 03/21/17 [Last Taken ] Spironolactone 100 mg PO DAILY 03/21/17 [Last Taken 07/14/17 08:00] metFORMIN HCL [Metformin HCl ER] 1,500 mg PO DAILY@1800 03/21/17 [Last Taken 07/25] Herbals/Supplements -Info Only 1 ea PO BID 04/02/17 [Last Taken 07/14/17] Estradiol [Climara] 0.025 mg TD SA@0900 06/10/17 [Last Taken 07/13/17] Multivitamin (*) 1 tab PO DAILY 06/10/17 [Last Taken 07/14/17] - NPO status NPO Since - Liquids (Date): 07/14/17 NPO Since - Liquids (Time): 20:00 NPO Since - Solids (Date): 07/13/17 NPO Since - Solids (Time): 20:00 - Smoking Hx Smoking Status: Never smoked - Family Anes Hx Family Hx Anesthesia Complications: none ANE Labs/Vital Signs - Vital Signs Blood Pressure: 138/95 Heart Rate: 96 Respiratory Rate: 16 O2 Sat (%): 94 Height: 165.1 cm Weight: 66.678 kg ANE Physical Exam - Airway Neck exam: FROM Mallampati Score: Class 2 Mouth exam: normal dental/mouth exam - Pulmonary Pulmonary: clear to auscultation - Cardiovascular Cardiovascular: regular rate and rhythym - ASA Status ASA Status: II ANE Anesthesia Plan Anesthesia Plan: general endotracheal anesthesia
[2017-07-15] MEDS ORDERED: MIDAZOLAM 2 MG/2 ML VIAL ONE (07:21)
[2017-07-15] MEDS ORDERED: HYDROmorphONE/DILAUDID 2 MG/ML INJ ONE (07:24)
[2017-07-15] MEDS ORDERED: ROCURONIUM 100 MG/10 ML VIAL ONE (07:24)
[2017-07-15] MEDS ORDERED: PROPOFOL 200 MG/20 ML VIAL ONE (07:24)
[2017-07-15] MEDS ORDERED: LIDOCAINE 2% 5 ML SDV ONE (07:26)
[2017-07-15] MEDS: ceFAZolin 2 GM/DEXTROSE 100 ML IV ONE ×2 (07:28→10:00)
[2017-07-15] MEDS ORDERED: PHENYLEPHRINE HCL 100 MCG/ML SYR ONE (07:35)
[2017-07-15] MEDS ORDERED: BUPIVACAINE 0.5% 30 ML SDV ONE (07:45)
[2017-07-15] MEDS ORDERED: fentaNYL 100 MCG/2 ML INJ ONE (08:38)
[2017-07-15] MEDS ORDERED: DEXAMETHASONE 4 MG/ML VIAL ONE ×2 (09:28→09:29)
[2017-07-15] MEDS ORDERED: RANITIDINE 50 MG/2 ML VIAL ONE (09:30)
[2017-07-15] MEDS ORDERED: ONDANSETRON 4 MG/2 ML VIAL ONE (09:30)
[2017-07-15] MEDS ORDERED: METOCLOPRAMIDE 10 MG/2 ML VIAL ONE (09:31)
[2017-07-15] MEDS ORDERED: BUPIVACAINE 0.25% 270 ML in PUMP SET 1 EA NB SCH (10:15)
[2017-07-15] MEDS ORDERED: LABETALOL HCL 5 MG/ML 20 ML MDV ONE (10:19)
[2017-07-15] MEDS ORDERED: BUPIVACAINE 0.25% 30 ML SDV ONE (10:25)
[2017-07-15] MEDS ORDERED: SUGAMMADEX SODIUM 200 MG/2 ML VIAL IVP ONE (10:46)
--- NOTE | 2017-07-15 11:12 | POSTANESTH ---
Post Anesthetic Evaluation Cardiovascular Status: Normal, Stable Respiratory Status: Normal, Stable Level of Consciousness/Mental Status: Can Participate in Eval, Alert and Oriented Pain Control: Adequate, Prn Tx Ordered Nausea/Vomiting Control: Adequate, Prn Tx Ordered Complications Possibly Related to Anesthesia: None Noted
--- NOTE | 2017-07-15 11:16 | POSTOPPROG ---
Post Op Note Date of Operation: 07/15/17 Surgeon: David Carrington (, FACS) Oyster Shucker: Phoebe Callahan RN-FA Anesthesia: GET(General Endotracheal) Pre-op Diagnosis: colostomy Post-op Diagnosis: same, left adnexal cyst Procedure: partial colectomy with anastamosis, LSO Inf/Abcess present in the surg proc area at time of surgery?: No Complications: none Specimen(s): proximal and distal sigmoid colon, left tube/ovary
[2017-07-15] MEDS ORDERED: PROMETHAZINE HCL 25 MG/ML INJ IVP PRN (11:17)
[2017-07-15] MEDS ORDERED: TEMAZEPAM 15 MG CAP PO PRN (11:17)
[2017-07-15] MEDS: LR 1,000 ML IV SCH ×2 (12:38→17:13)
[2017-07-15] MEDS: SPIRONOLACTONE 100 MG TAB PO SCH (12:38)
--- NOTE | 2017-07-15 12:45 | PDMN ---
Medical Necessity Medical necessity: MCG S 235 bowel surgery: colectomy with or without ostomy by Lap 3 days : partial colectomy with anastomosis, LSO
[2017-07-15] MEDS: HYDROmorphONE/DILAUDID 1 MG/ML INJ IVP PRN ×3 (12:56→22:08)
[2017-07-15] MEDS: ceFAZolin 2 GM/DEXTROSE 100 ML IV SCH ×2 (13:31→22:14)
--- NOTE | 2017-07-15 16:38 | ASMTCMCOM ---
CM Note CM Note Notes: Patient is a 62 year old female with HX significant for ovarian cancer with abdominal surgery and prior ostomy, she is here today after surgery to reverse ostomy. CM to follow. Needs TBD. Plan: TBD Date Signed: 07/15/2017 04:37 PM Electronically Signed By:Charmaine Gomes RN
[2017-07-15] MEDS: ONDANSETRON 4 MG/2 ML VIAL IVP PRN ×2 (17:58→19:37)
[2017-07-15] MEDS ORDERED: LANSOPRAZOLE SUSP 3 MG/ML UDSYR (Peds) PO SCH (21:00)
[2017-07-15] MEDS: PROGESTERONE,MICR 100 MG CAP PO SCH (22:13)
[2017-07-15] MEDS: PANTOPRAZOLE SODIUM 40 MG TAB PO SCH (22:13)
[2017-07-16] MEDS: LR 1,000 ML IV SCH (00:20)
[2017-07-16] MEDS: HYDROmorphONE/DILAUDID 1 MG/ML INJ IVP PRN ×6 (02:20→11:51)
[2017-07-16] MEDS: KETOROLAC 15 MG/1 ML SDV IVP PRN ×3 (03:34→18:02)
--- NOTE | 2017-07-16 04:40 | GOP ---
[f rep st] OPERATIVE REPORT DATE OF OPERATION: 07/15/2017 SURGEON: David Carrington MD, FACS BUFFER AUTOMATIC: VIOLA Chang. ANESTHESIA: General endotracheal. ANESTHESIOLOGIST: Braydon Sierra D.O. PREOPERATIVE DIAGNOSIS: Status post Wallace procedure for perforated diverticulitis with end colostomy. POSTOPERATIVE DIAGNOSIS: 1. Status post Wallace procedure for perforated diverticulitis with end colostomy. 2. Extensive intraabdominal adhesions. 3. Dilated left tube and left adnexal cyst. 4. Multiple uterine fibroids. PROCEDURE PERFORMED: 1. Laparoscopic mobilization of splenic flexure. 2. Partial sigmoid colectomy with primary anastomosis and takedown of the end colostomy. 3. Left salpingo-oophorectomy. 4. Extensive lysis of adhesions. FINDINGS: extensive adhesions, cystic dilatation of the left salpinx and cyst of the left ovary or ovarian remnant. Multiple large uterine fibroids ESTIMATED BLOOD LOSS: 50 mL. INDICATIONS: Patient is a 62-year-old female, who is approximately 3 months status post emergency laparotomy for perforated diverticulitis and peritonitis. The patient had a drain in place and was treated successfully with antibiotics and returns now for colostomy takedown. She underwent mechanical and antibiotic bowel preparation, receiving intravenous Ancef and Flagyl perioperatively. DESCRIPTION OF PROCEDURE: After informed consent was obtained, the patient was brought to the operating room and placed under general anesthesia. The abdomen was prepped and draped in the usual fashion with the patient in lithotomy, carefully padding all pressure points. Both arms were tucked. A Humphrey catheter was placed. Before proceeding, a time-out and identification of the patient was performed. A safe and timely completion of the operation required the help of a qualified 1st restaurant assistant, and VIOLA Epps was requested to attend. The periumbilical portion of the low midline incision was infiltrated with 0.25 % Marcaine and incised adjacent to the umbilicus on the right of midline and dissection carried down to the fascia. Sharp dissection through the fascia into the peritoneal cavity in a roughly 10 mm fascial incision allowed introduction of a Leon cannula. This was secured to the fascia with 0 Vicryl sutures. A pneumoperitoneum was established with CO2 gas to a pressure of 15 mmHg. A 30 degree 10 mm scope was introduced, and the peritoneal cavity was visualized. Extensive adhesions were noted, particularly in the lower abdomen, but the upper abdomen appeared to be relatively free of adhesions. Two additional 5 mm ports were placed in the right and left upper quadrants and the table positioned in reverse Trendelenburg, tilting the patient slightly to the right. Adhesions to the spleen were taken down as were the splenocolic attachments. Dissection was carried out to mobilize the splenic flexure down to Gerota's fascia and along the white line of Toldt in the left pericolic gutter. This was accomplished with minimal bleeding using the Harmonic Scalpel. Dissection was carried beyond the splenic flexure and mobilizing the distal transverse colon from the greater curvature of the stomach in a similar fashion. The omentum was noted to be intact and adherent to the anterior abdominal wall below the incision, and turning the camera and attention to the lower abdomen and pelvis, adhesions were fully mobilized around the descending/ sigmoid colostomy site, including the omental adhesions. Small bowel adhesions were encountered in the pelvis, and the table was now shifted to a head-down position, and the small bowel was mobilized from the pelvis with 1 loop closely adherent to the staple line of the previous defunctionalized distal sigmoid segment. This was taken down carefully using sharp dissection and the small bowel mobilized proximally. The patient's left tube was dilated and there was a cyst in what appeared to be an ovarian remnant. I then scrubbed out to perform a rigid proctosigmoidoscopy, and introducing standard adult sigmoidoscope after lubrication and dilatation of the anus allowed me to pass the scope between 15 and 20 cm without reaching the staple line. This indicated a longer than expected rectosigmoid remnant, which would require either further resection of the sigmoid colon distally or a hand-sewn anastomosis in the pelvis. Given the patient's findings of uterine fibroids and a dilated left salpinx, which were noted as the small bowel was mobilized from the pelvis, I elected to convert to an open procedure. The low midline scar was excised. Dissection was carried out down to the midline fascia. The 12 mm Leon cannula was removed, and the fascia opened with cautery down to the lower part of the incision. The uterus and the fibroids were retracted anteriorly and the bowel mobilized from the upper pelvis to the cul-de-sac. There was approximately 12 cm of remaining sigmoid colon proximal to the rectosigmoid junction. The colostomy was then mobilized 1st from the peritoneal side, taking down the peritoneum and dissecting to the level of the fascia. Subsequently, a scalpel was used to incise the skin 1-2 mm from the mucosal edge, circumferential to the stomal opening. The colon was mobilized down to the fascia and ultimately liberated from the fascia and brought into the peritoneal cavity. The mesentery was mobilized and a short segment of sigmoid colon, approximately 6-8 cm, was resected in preparation for anastomosis. After mobilization of the splenic flexure, there was adequate length to perform a hand-sewn anastomosis in the pelvis without tension. A Shelia clamp was applied to the proximal bowel. A 2-layered hand-sewn anastomosis was then performed as follows: The posterior outer row of the anastomosis was performed with interrupted 3-0 Vicryl sutures and then the mucosa was approximated with a continuous running 3-0 Vicryl suture starting posteriorly and continuing anteriorly in a mucosal inverting fashion. The final anterior outer row was performed with interrupted 3-0 Vicryl sutures. Blood supply appeared adequate, and there was no tension on the anastomosis. It was tested by irrigating the pelvis with saline and replacing the sigmoidoscope and gently introducing air into the lower bowel. No leaks were observed. The left salpinx was markedly dilated, and there was a cyst in the patient's left ovary. Extensive adhesiolysis was necessary to free this up from the pelvic sidewall, and I felt returning the patient to the operating room for subsequent removal would be treacherous. I elected to perform a left salpingo- oophorectomy. The dilated salpinx was mobilized from the pelvic sidewall. The round ligament was detached from the uterus, and the hemostasis was secured with 2-0 Vicryl suture ligatures. The ovarian pedicle and cyst were resected en bloc and again, 2-0 Vicryl sutures were used to secure the blood supply. The specimen was removed from the field and submitted for permanent section. The operative field was irrigated. Hemostasis appeared secure. The blood loss to this point had been minimal at approximately 50 mL. The ostomy site was closed with continuous running #1 PDS suture for the fascia. Subcutaneous tissues were approximated with 2-0 Vicryl sutures. Skin was closed with nelly over a quarter-inch Corey drain, which was secured with 3-0 nylon suture for the skin. The operative field appeared hemostatic. The midline fascia was closed with a clean closure technique, changing gowns, gloves, and instruments, and redraping the field. The fascia was closed with continuous running #1 PDS suture. Subcutaneous tissues were irrigated. Bilateral On-Q catheters were tunneled into this deep subcutaneous super fascial layer and secured to the skin with Dermabond. Skin was closed with nelly. Dermabond was used to seal the upper lap ports after the skin was approximated with 4-0 Monocryl suture in a subcuticular fashion. Sterile dressings were applied. The patient was returned extubated to the recovery room in satisfactory condition. Needle, sponge, and instrument counts correct. COMPLICATIONS: None. /[id number]/MODL MTDD
[2017-07-16 05:57] LABS: PLATELET COUNT 247 10^3/uL (150-400)
[2017-07-16] MEDS: SPIRONOLACTONE 100 MG TAB PO SCH (08:58)
[2017-07-16] MEDS: ENOXAPARIN 40 MG/0.4 ML SYR SC SCH (08:59)
[2017-07-16] MEDS ORDERED: ESTRADIOL 0.025 MG PATCH TD SCH (09:00)
--- NOTE | 2017-07-16 12:36 | SOAPPROG ---
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 [employer]ICAL Objective: Vital Signs Temp Pulse Resp BP Pulse Ox 36.9 C 108 H 16 135/81 H 95 07/16/17 11:51 07/16/17 11:51 07/16/17 11:51 07/16/17 11:51 07/16/17 11:51 Laboratory Results 07/16/17 04:40 07/16/17 04:40 07/15/17 07/16/17 07/17/17 05:59 05:59 05:59 Intake Total 2912 Output Total 1700 Balance 1212 - Pending Discharge Pending Discharge Within 24 Hours: No Pending Discharge Within 48 Hours: No Physical Exam - Physical Exam General Appearance: alert, mild distress Respiratory: lungs clear Cardiac/Chest: regular rate, rhythm Abdomen: soft, distended, other (dressings change/small amount drainage at colostomy site) ICD10 Worksheet Patient Problems: Problems Problem Status Onset Diverticulitis large intestine Acute Ileus, postoperative Acute Pelvic abscess in female Acute Type II diabetes mellitus Acute
[2017-07-16] MEDS: HYDROmorphONE/DILAUDID 4 MG TAB PO PRN ×3 (14:35→22:46)
[2017-07-16] MEDS: PROGESTERONE,MICR 100 MG CAP PO SCH (20:27)
[2017-07-16] MEDS: PANTOPRAZOLE SODIUM 40 MG TAB PO SCH (20:27)
[2017-07-17] MEDS: HYDROmorphONE/DILAUDID 4 MG TAB PO PRN ×5 (02:47→20:09)
--- NOTE | 2017-07-17 06:47 | SOAPPROG ---
SOAP Progress Note Assessment/Plan: Assessment:s/p colostomy takedown with primary colocolostomy + left salpingo-oophorectomy post ileus-resolving post op pain-improved remote hx ESBL infection Plan: trial of oral Dilaudid as patient has good bowel sounds DC IV fluids increase activity full liquids contact isolation x 12 months post infection per Hospital policy 07/16/17 12:32 07/17/17 06:45 Subjective: resting more comfortably/passing flatus Objective: Vital Signs Temp Pulse Resp BP Pulse Ox 36.8 C 78 16 120/72 92 07/17/17 04:00 07/17/17 04:00 07/17/17 04:00 07/17/17 04:00 07/17/17 04:00 Laboratory Results 07/16/17 04:40 07/16/17 04:40 07/16/17 07/17/17 07/18/17 05:59 05:59 05:59 Intake Total 2912 2238 Output Total 1700 2450 Balance 1212 -212 - Pending Discharge Pending Discharge Within 24 Hours: No Pending Discharge Within 48 Hours: Yes Pending Discharge Date: 07/19/17 Pending Discharge Time: 11:00 Physical Exam - Physical Exam General Appearance: alert, no apparent distress Cardiac/Chest: regular rate, rhythm Abdomen: soft, distended, other (incisions o.k./On-Q intact) Pelvic Exam: deferred Rectal: deferred ICD10 Worksheet Patient Problems: Problems Problem Status Onset Diverticulitis large intestine Acute Ileus, postoperative Acute Pelvic abscess in female Acute Type II diabetes mellitus Acute
[2017-07-17] MEDS: ENOXAPARIN 40 MG/0.4 ML SYR SC SCH (08:33)
[2017-07-17] MEDS: SPIRONOLACTONE 100 MG TAB PO SCH (08:34)
[2017-07-17] MEDS: IBUPROFEN 600 MG TAB PO PRN ×2 (13:18→21:02)
[2017-07-17] MEDS ORDERED: metFORMIN SR 750 MG TAB.SR PO SCH (18:00)
[2017-07-17] MEDS: PROGESTERONE,MICR 100 MG CAP PO SCH (20:09)
[2017-07-17] MEDS: PANTOPRAZOLE SODIUM 40 MG TAB PO SCH (20:09)
[2017-07-18] MEDS: HYDROmorphONE/DILAUDID 4 MG TAB PO PRN ×3 (04:09→12:02)
[2017-07-18] MEDS: IBUPROFEN 600 MG TAB PO PRN ×2 (05:17→12:02)
--- NOTE | 2017-07-18 07:08 | PDDCSUM ---
Discharge Summary Discharge Summary: #[id number] Discharge Summary Dictated S MD Charissa, FACS
[2017-07-18] MEDS: ENOXAPARIN 40 MG/0.4 ML SYR SC SCH (08:04)
[2017-07-18] MEDS: SPIRONOLACTONE 100 MG TAB PO SCH (08:05)
[2017-07-18 08:10] VITALS: BP 111/84
--- NOTE | 2017-07-18 08:46 | GDS ---
[f rep st] DISCHARGE SUMMARY DISCHARGE DIAGNOSES: 1. Diverticulitis status post Wallace's procedure. 2. Xgj-[id number]-qfljozyue diabetes mellitus. PROCEDURE PERFORMED: 07/15/2017: 1. Laparoscopic-assisted colostomy takedown with primary colocolostomy. 2. Left salpingo-oophorectomy and extensive lysis of adhesions. HOSPITAL COURSE: For details of admission history and physical, please see dictated summary. Briefl y, the patient is a 62-year-old female admitted for colostomy takedown 3 months after a perforated di verticulitis requiring resection and end colostomy with Wallace's pouch. At the time of surgery, dianne curtis was found to have adhesions in the pelvis and large uterine fibroids. The splenic flexure was mobilized laparoscopically and the remainder of the procedure was performed through a low midline inc ision achieving a primary colocolostomy with sparing of the rectosigmoid junction. Left salpingo-oop horectomy was performed because of the dilated salpinx and extensive scar tissue in the area making s ubsequent surgical approach treacherous. Final pathology is pending. Following surgery, patient had a Humphrey catheter in overnight. This was removed on the day after surg marleny. She received intravenous fluids that were discontinued when she was tolerating a clear liquid d iet on postop day 1. She was ambulatory and remained afebrile. She received 2 doses of postoperativ e antibiotics (Ancef/Flagyl) and showed no sign of infection in the postoperative period. A Corey drain left at the colostomy incision was pulled on the day of discharge. She was advanced to a low-f iber diet, started passing gas on postop day 2, but had not had a bowel movement at the time of this dictation. She was voiding without difficulty. The patient tolerated oral analgesics. DISCHARGE INSTRUCTIONS: Discharge instructions were given for wound care and activity. She will fol low up in my office in the upcoming 10 days for staple removal. DISCHARGE MEDICATIONS: Estradiol 0.25 mg patch, hydromorphone 4 mg p.o. q.4 hours p.r.n. pain, ibupr ofen 600 mg p.o. three times daily, Prevacid 30 mg p.o. at bedtime, metformin 1500 mg p.o. daily, pro gesterone 100 mg p.o. at bedtime, spironolactone 100 mg p.o. daily, temazepam 15 mg at bedtime #7. T he patient will resume herbal supplements and vitamins at home. /[id number]/MODL
--- NOTE | 2017-07-20 14:57 | GDS ---
[facility] Patient Name: KUSH ISAACS Rpt#: [id number] Unit Number: [id number] Attending/ER Physician: DAVID KEMP Patient Type: DIS IN Adm Date/Source: 07/15/17 PHY Discharge Date: 07/18/17 Primary Carrier: [employer] [place] [employer] Signed DISCHARGE SUMMARY DISCHARGE DIAGNOSES: 1. Diverticulitis status post Wallace's procedure. 2. Dln-rkmowuz-vititilqp diabetes mellitus. PROCEDURE PERFORMED: 07/15/2017: 1. Laparoscopic-assisted colostomy takedown with primary colocolostomy. 2. Left salpingo-oophorectomy and extensive lysis of adhesions. HOSPITAL COURSE: For details of admission history and physical, please see dictated summary. Briefly, the patient is a 62-year-old female admitted for colostomy takedown 3 months after a perforated diverticulitis requiring resection and end colostomy with Wallace's pouch. At the time of surgery, patient was found to have adhesions in the pelvis and large uterine fibroids. The splenic flexure was mobilized laparoscopically and the remainder of the procedure was performed through a low midline incision achieving a primary colocolostomy with sparing of the rectosigmoid junction. Left salpingo-oophorectomy was performed because of the dilated salpinx and extensive scar tissue in the area making subsequent surgical approach treacherous. Final pathology is pending. Following surgery, patient had a Humphrey catheter in overnight. This was removed on the day after surgery. She received intravenous fluids that were discontinued when she was tolerating a clear liquid diet on postop day 1. She was ambulatory and remained afebrile. She received 2 doses of postoperative antibiotics (Ancef/Flagyl) and showed no sign of infection in the postoperative period. A Madrid drain left at the colostomy incision was pulled on the day of discharge. She was advanced to a low-fiber diet, started passing gas on postop day 2, but had not had a bowel movement at the time of this dictation. She was voiding without difficulty. The patient tolerated oral analgesics. DISCHARGE INSTRUCTIONS: Discharge instructions were given for wound care and activity. She will follow up in my office in the upcoming 10 days for staple removal. DISCHARGE MEDICATIONS: Estradiol 0.25 mg patch, hydromorphone 4 mg p.o. q.4 hours p.r.n. pain, ibuprofen 600 mg p.o. three times daily, Prevacid 30 mg p.o. at bedtime, metformin 1500 mg p.o. daily, progesterone 100 mg p.o. at bedtime, spironolactone 100 mg p.o. daily, temazepam 15 mg at bedtime #7. The patient will resume herbal supplements and vitamins at home. /[id number]/MODL NOTE: At the time of nitro worker of this report, there may have been blank(s) to be edited by the dictating clinician. By signing this report, I attest that I have reviewed any blanks in the document, and have either corrected them and/or have no further information to add. David Kemp MD 07/19/17 0815 <Electronically signed by David Kemp MD> T: SHORTY 07/18/1741 CC: DAVID KEMP; Bonita Ni MD
== END 2017-07-18 12:28 | disposition home or self-care (01) | DRG 346 ==
LOC: F3E 05:51
PROVIDERS: ADMIT Surgery; ATTEND Surgery
PROC: 0UT10ZZ Resection of Left Ovary, Open Approach (ICD-10-PCS; principal; 2017-07-15 07:30)
PROC: 0DJD8ZZ Inspection of Lower Intestinal Tract, Via Natural or Artificial Opening Endoscopic (ICD-10-PCS; principal; 2017-07-15 07:30)
PROC: 0DSN0ZZ Reposition Sigmoid Colon, Open Approach (ICD-10-PCS; principal; 2017-07-15 07:30)
PROC: 0UT60ZZ Resection of Left Fallopian Tube, Open Approach (ICD-10-PCS; principal; 2017-07-15 07:30)
DX: Z43.3 Encounter for attention to colostomy (principal); D25.9 Leiomyoma of uterus, unspecified; N83.202 Unspecified ovarian cyst, left side; Z87.19 Personal history of other diseases of the digestive system; K21.9 Gastro-esophageal reflux disease without esophagitis; E11.9 Type 2 diabetes mellitus without complications; E78.00 Pure hypercholesterolemia, unspecified; Z53.33 Arthroscopic surgical procedure converted to open procedure; Z79.84 Long term (current) use of oral hypoglycemic drugs; Z79.890 Hormone replacement therapy
CPT/HCPCS: 97161-GP; J0690; J1100; J1170; J1650; J1885; J2250; J2370; J2405; J2704; J2765; J2780; J3010

== ENCOUNTER 2017-12-23 10:28 | Observation (INO) | payer OTHER ==
[2017-12-23] MEDS ORDERED: ceFAZolin 2 GM/DEXTROSE 100 ML IV ONE (10:44)
[2017-12-23] MEDS ORDERED: LR 1,000 ML IV ONE (10:45)
[2017-12-23] MEDS ORDERED: fentaNYL 100 MCG/2 ML INJ IVP PRN ×2 (10:51→11:41)
[2017-12-23] MEDS ORDERED: PROMETHAZINE HCL 25 MG/ML INJ IVP PRN ×3 (10:51→14:46)
[2017-12-23] MEDS ORDERED: PHENYLEPHRINE HCL 100 MCG/ML SYR IVP PRN ×2 (10:51→11:41)
[2017-12-23] MEDS ORDERED: MIDAZOLAM 2 MG/2 ML VIAL IVP ONE (10:51)
[2017-12-23] MEDS ORDERED: METOCLOPRAMIDE 10 MG/2 ML VIAL IVP PRN ×2 (10:51→11:41)
[2017-12-23] MEDS ORDERED: HYDROmorphONE/DILAUDID 2 MG/ML INJ IVP PRN ×2 (10:51→11:41)
[2017-12-23] MEDS ORDERED: LR 500 ML IV PRN ×2 (10:51→11:41)
[2017-12-23] MEDS ORDERED: oxyCODONE IR 5 MG TAB PO PRN ×2 (10:51→11:41)
[2017-12-23] MEDS ORDERED: NALOXONE HCL 0.4 MG/ML INJ IVP PRN ×2 (10:51→11:41)
[2017-12-23] MEDS ORDERED: BUPIVACAINE 0.25% 10 ML SDV ONE ×2 (11:00→12:14)
[2017-12-23] MEDS ORDERED: LIDOCAINE 1% 300 MG/30 ML SDV ONE (11:00)
[2017-12-23] MEDS ORDERED: BACITRACIN ZINC 14.2 GM OINTTUBE TP ONE (11:00)
[2017-12-23] MEDS ORDERED: fentaNYL 250 MCG/5 ML INJ ONE (11:01)
[2017-12-23] MEDS ORDERED: ONDANSETRON 4 MG/2 ML VIAL ONE (11:01)
[2017-12-23] MEDS ORDERED: POLYMYXIN B SULFATE 500,000 UNIT/10 ML SYR IRR ONE (11:01)
[2017-12-23] MEDS ORDERED: ROCURONIUM 100 MG/10 ML VIAL ONE (11:01)
[2017-12-23] MEDS ORDERED: PROPOFOL 200 MG/20 ML VIAL ONE (11:01)
[2017-12-23] MEDS ORDERED: LIDOCAINE 2% 5 ML SDV ONE (11:01)
[2017-12-23] MEDS ORDERED: EPINEPHrine 1 MG/ML INJ ONE (11:01)
[2017-12-23] MEDS ORDERED: DEXAMETHASONE 4 MG/ML VIAL ONE (11:01)
[2017-12-23] MEDS ORDERED: BUPIVACAINE/EPI 0.25% 30 ML SDV ONE (11:01)
[2017-12-23] MEDS ORDERED: BACITRACIN 50,000 UNITS/10 ML SYR IRR ONE (11:02)
--- NOTE | 2017-12-23 11:40 | PDANEPAE ---
ANE Past Medical History - Cardiovascular History Hx Hypertension: No Hx Arrhythmias: No Hx Chest Pain: No Hx Coronary Artery / Peripheral Vascular Disease: No Hx CHF / Valvular Disease: No Hx Palpitations: No Cardiovascular History Comment: PAC's - Pulmonary History Hx COPD: No Hx Asthma/Reactive Airway Disease: No Hx Recent Upper Respiratory Infection: No Hx Oxygen in Use at Home: No Hx Sleep Apnea: No Sleep Apnea Screening Result - Last Documented: Negative Pulmonary History Comment: seasonal allergies - Neurologic History Hx Cerebrovascular Accident: No Hx Seizures: No Hx Dementia: No Neurologic History Comment: DDD- cervical spine and lumbar spine - Endocrine History Hx Diabetes: No Endocrine History Comment: Prediabetes (insulin resistance and placed on metformin by otr owner operator) - Renal History Hx Renal Disorders: No - Liver History Hx Hepatic Disorders: No - Neurological & Psychiatric Hx Hx Neurological and Psychiatric Disorders: No - Cancer History Hx Cancer: No - Congenital Disorder History Hx Congenital Disorders: No - GI History Hx Gastrointestinal Disorders: Yes Gastrointestinal History Comment: diverticulitis. hiatal hernia with GERD - Other Health History Other Health History: endometriosis. wears glasses - Chronic Pain History Chronic Pain: Yes (lower back) - Surgical History Prior Surgeries: 07/15/17 lap colostomy takedown, converted to open with salpingooophorectomy with [facility]. 04/02/17 lap abscess evacuation with [facility]. microperferations. colectomy. 2 diagnostic laps for ovarian cysts, right oophorectomy. blelphroplasty,face and neck lift ANE Review of Systems Review of Systems: - Exercise capacity METS (RN): 4 METS ANE Patient History - Allergies Allergies/Adverse Reactions: ciprofloxacin [From Cipro] Allergy (Verified 12/20/17 10:31) TINNITIS codeine Allergy (Verified 12/20/17 10:31) n/v propoxyphene [From Darvocet-N] Allergy (Verified 12/20/17 10:31) Itching - Home Medications Home Medications: Progesterone, Micronized [Progesterone] 100 mg PO HS 03/21/17 [Last Taken ] Spironolactone 100 mg PO DAILY 03/21/17 [Last Taken 12/22/17] metFORMIN HCL [Metformin HCl ER] 1,500 mg PO DAILY18 03/21/17 [Last Taken ] Herbals/Supplements -Info Only 1 ea PO BID 04/02/17 [Last Taken 12/22/17] Estradiol [Climara] 0.025 mg TD SA@0900 06/10/17 [Last Taken 12/23/17] Multivitamins [Multivitamin (*)] 1 each PO DAILY #0 06/10/17 [Last Taken ] Lansoprazole [Prevacid] 15 mg PO HS 12/15/17 [Last Taken 12/22/17] Lynch-3 Fatty Acids [Fish Oil 1000 mg (*)] 1,000 mg PO HS 12/15/17 [Last Taken 12/13/17] - NPO status NPO Since - Liquids (Date): 12/23/17 NPO Since - Liquids (Time): 08:00 NPO Since - Solids (Date): 12/23/17 NPO Since - Solids (Time): 06:30 - Smoking Hx Smoking Status: Never smoked - Family Anes Hx Family Hx Anesthesia Complications: none ANE Labs/Vital Signs - Vital Signs Blood Pressure: 148/92 Heart Rate: 73 Respiratory Rate: 18 O2 Sat (%): 95 Height: 165.1 cm Weight: 66.678 kg ANE Physical Exam - Airway Neck exam: FROM Mallampati Score: Class 1 Mouth exam: normal dental/mouth exam - Pulmonary Pulmonary: no respiratory distress, no rales or rhonchi - Cardiovascular Cardiovascular: regular rate and rhythym, no murmur, rub, or gallop - ASA Status ASA Status: II ANE Anesthesia Plan Anesthesia Plan: general endotracheal anesthesia
[2017-12-23] MEDS ORDERED: MEPERIDINE 25 MG/0.5 ML AMP IVP PRN (11:41)
[2017-12-23] MEDS ORDERED: ONDANSETRON 4 MG/2 ML VIAL IVP PRN ×2 (11:41→14:46)
[2017-12-23] MEDS ORDERED: SCOPOLAMINE HYDROBROMIDE 1 MG/3 DAYS PATCH TD ONE (11:43)
[2017-12-23] MEDS ORDERED: SCOPOLAMINE HYDROBROMIDE 1 MG/3 DAYS PATCH TD SCH (12:00)
[2017-12-23] MEDS ORDERED: HYDROmorphONE/DILAUDID 2 MG/ML INJ ONE (12:32)
[2017-12-23] MEDS ORDERED: SUGAMMADEX SODIUM 200 MG/2 ML VIAL IVP ONE (14:06)
--- NOTE | 2017-12-23 14:54 | POSTOPPROG ---
Post Op Note Date of Operation: 12/23/17 Surgeon: David Carrington (, FACS) Vascular Technician: Óscar Wang MD Anesthesiologist: Andrez Ball MD Pre-op Diagnosis: incisional hernia x 2 Post-op Diagnosis: incisional hernia x2 + epigastric hernia Procedure: repair of incisional/epigastric hernias Inf/Abcess present in the surg proc area at time of surgery?: No Drains: Lazaro Vasquez (x1)
--- NOTE | 2017-12-23 14:58 | POSTANESTH ---
Post Anesthetic Evaluation Cardiovascular Status: Normal, Stable Respiratory Status: Normal, Stable Level of Consciousness/Mental Status: Can Participate in Eval Pain Control: Adequate, Prn Tx Ordered Nausea/Vomiting Control: Adequate, Prn Tx Ordered Complications Possibly Related to Anesthesia: None Noted
[2017-12-23] MEDS ORDERED: LR 1,000 ML IV SCH (15:00)
[2017-12-23] MEDS: HYDROmorphONE/DILAUDID 1 MG/ML INJ IVP PRN ×3 (18:34→21:22)
[2017-12-23] MEDS: ceFAZolin 2 GM/DEXTROSE 100 ML IV SCH (19:34)
[2017-12-23] MEDS ORDERED: LANSOPRAZOLE SUSP 30MG/10ML UDSYR (Adult) PO SCH (21:00)
[2017-12-23] MEDS ORDERED: PROGESTERONE,MICR 100 MG CAP PO SCH (21:00)
[2017-12-23] MEDS: IBUPROFEN 600 MG TAB PO PRN (22:25)
[2017-12-24] MEDS: ceFAZolin 2 GM/DEXTROSE 100 ML IV SCH (04:24)
[2017-12-24] MEDS ORDERED: HYDROmorphONE/DILAUDID 2 MG/ML INJ IVP PRN (04:30)
--- NOTE | 2017-12-24 05:27 | GOP ---
DATE OF OPERATION: SURGEON: David Carrington MD, FACS [place] OPERATOR: Jean-Pierre Wang MD PREOPERATIVE DIAGNOSIS: Midline left lower quadrant incisional hernias. POSTOPERATIVE DIAGNOSIS: 1. Midline left lower quadrant incisional hernias. 2. Epigastric hernia. 3. Significant abdominal wall laxity. PROCEDURE PERFORMED: 1. Repair of incisional hernia x2. 2. Repair of epigastric hernia. FINDINGS: Lower midline incisional hernia from prior midline exploration, as well as left lower quadrant colostomy site hernia and small supraumbilical epigastric hernia with general laxity of the abdominal wall and upper diastasis. Procedure was performed in conjunction with Dr. Jean-Pierre Wang to perform a reconstructive abdominoplasty in conjunction with her hernia repair. ESTIMATED BLOOD LOSS: 50 mL. DESCRIPTION OF PROCEDURE: After informed consent was obtained, the patient was brought to the operating room and placed under general anesthesia. A Humphrey catheter was placed. The abdomen and perineum were prepped and draped in the usual fashion. Before proceeding, a time-out and identification of the patient was performed. An elliptical incision was made between the anterior superior iliac crests bilaterally and extending to the suprapubic region and dissection carried out through the skin and subcutaneous tissue. Superficial veins were cauterized and/or ligated with 3-0 Vicryl ligatures. A deep subcutaneous flap was elevated just anterior to the external oblique fascia laterally and this led to the hernial defect medially. Slow careful dissection of this thinned out area of skin and subcutaneous tissues overlying the hernia sac was performed to avoid entry into the peritoneum. As the abdominal wall fat was dissected from the oblique fascia on the left side, the hernial defect was encountered and noted to contain omentum. The hernia sac was opened and the omentum was reduced into the peritoneal cavity. Gentle palpation of the peritoneum revealed no additional anterior adhesions in the left lower quadrant. This defect was repaired with interrupted 0 Nurolon sutures in a [id number] fashion. The remainder of the defect in the external oblique fascia was also repaired with interrupted 0 Nurolon sutures in a simple interrupted fashion. Dissecting cephalad, the hernia extended up to and adjacent to the right side of the umbilicus and the hernia sac was entered at this point, confirming that there was no bowel adherent to the peritoneum anteriorly. This was quite remarkable considering the patient's prior inflammation and generalized peritonitis. This defect was repaired with interrupted 0 Nurolon sutures which were then used to approximate the myofascial border of the rectus sheath on either side starting in the suprapubic area and extending up to and above the umbilicus. An epigastric hernia was encountered as we dissected off the abdominal wall fat above the umbilicus and this was repaired with interrupted [address] Wang then completed the remainder of the abdominoplasty and performed a continuous imbrication of the fascia anterior to the repair with continuous running 0 Ethibond suture. Careful attention was paid to the blood supply of the umbilical stalk, which remained and became part of the reconstruction. The remainder of the closure was performed with Dr. Wang and will be dictated as a separate operative report. COMPLICATIONS: None. /[id number]/MODL MTDD
[2017-12-24] MEDS: IBUPROFEN 600 MG TAB PO PRN (06:41)
[2017-12-24 07:42] VITALS: BP 108/71
[2017-12-24] MEDS ORDERED: ENOXAPARIN 40 MG/0.4 ML SYR SC SCH (09:00)
[2017-12-24] MEDS ORDERED: SPIRONOLACTONE 100 MG TAB PO SCH (09:00)
[2017-12-24] MEDS ORDERED: HYDROmorphONE/DILAUDID 4 MG TAB PO PRN (10:02)
--- NOTE | 2017-12-24 10:21 | PDDCSUM ---
Discharge Summary Discharge Summary: #[id number] Dictated Tirso Carrington MD, FACS
--- NOTE | 2017-12-24 11:14 | GDS ---
DISCHARGE DIAGNOSIS: 1. Incisional hernia and abdominal wall laxity. 2. Status post Wallace procedure for perforated sigmoid diverticulitis, March 2017, and subseque nt takedown. 3. Noninsulin dependent diabetes mellitus. 4. Hypertension. 5. Gastroesophageal reflux disease. 6. 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 Patient was kept in appro priate isolation while in the hospital. DISCHARGE MEDICATIONS: Spironolactone 100 mg p.o. daily, progesterone 100 mg p.o. at bedtime, metfor min 1500 mg p.o. daily, estradiol 0.025 mg transdermal, multivitamins, ibuprofen 600 mg three times d aily p.r.n., omega-3 fatty acids, hydromorphone tablets 4 mg p.o. q.4 hours p.r.n. #30 and magnesium oxide 100 mg p.o. daily. PROCEDURE PERFORMED: On 12/23/2017, repair of multiple incisional and epigastric hernias with abdomi noplasty. HOSPITAL COURSE: For details of admission history and physical, please see dictated summary. Briefl y, the patient is a 62-year-old female admitted for abdominal wall reconstruction. She had undergone prior Wallace's procedure for perforated diverticulitis in March 2017 and subsequent colostomy t akedown. She unfortunately developed incisional hernias in her low midline incision, as well as her colostomy site, with associated abdominal wall laxity, limiting her activity. She was admitted for r econstruction repair of her hernias, this was performed on the date of admission under general anesth esia. She was admitted for observation postoperatively and had mild to moderate incisional pain that was improving at time of discharge. Her operative site appeared uncomplicated and she was toleratin g a regular diet. Her metformin was held the day prior to surgery and will be resumed within 24 hour s after surgery. Her 1st postop visit will be with Dr. Wang on December 27 and she will contact my office for a postop visit in approximately 2 weeks. /[id number]/MODL
--- NOTE | 2017-12-24 12:29 | ASMTLACE ---
LACE Length of stay for Answers: 1 day current admission Acuity / Level of Answers: No Care: Did the patient have an inpatient admission? Comorbidities - select Answers: Diabetes (uncontrolled or all that apply controlled) Other Notes: GERD, HTN # of Emergency department Answers: 1-2 visits in the last 6 months Score: 4 Date Signed: 12/24/2017 12:28 PM Electronically Signed By:Scarlet Banuelos RN
--- NOTE | 2017-12-24 12:44 | ASDISCHSUM ---
Discharge Information Plan Status:Home with No Needs Medically Cleared to Leave:12/23/2017 Discharge Date:12/24/2017 11:17 AM CM D/C Disposition:Home, Routine, Self-Care ADT D/C Disposition:Home, Routine, Self-Care Projected Discharge Date:12/24/2017 11:17 AM Transportation at D/C:Family Discharge Delay Reason: Follow-Up Date:12/24/2017 11:17 AM Discharge Slot:2 - 12:01 pm - 18:00 pm Final Diagnosis:Incisional hernia, s/p Wallace procedure, NIDDM, HTN, GERD Placement Information Patient Contact Information Contact Name:KEI Relationship: Address:[address] Work Phone: Alesia:ASHWIN Oswaldo Phone: [facility]/Zip Code:[place] [address] Email: Financial Information Financial Class:BCOP Primary Plan Desc:[employer] [employer] Primary Plan Number:[id number] Secondary Plan Desc: Secondary Plan Number: Assessment Information LACE LACE Length of stay for Answers: 1 day current admission Acuity / Level of Answers: No Care: Did the patient have an inpatient admission? Comorbidities - select Answers: Diabetes (uncontrolled or all that apply controlled) Other Notes: GERD, HTN # of Emergency department Answers: 1-2 visits in the last 6 months Score: 4 Date Signed: 12/24/2017 12:28 PM Electronically Signed By:Scarlet Banuelos RN [facility] CM Progress Note CM Note CM Note Notes: Reviewed chart. Pt admitted for planned hernia repair for midline incisional and epigastric hernias. History includes NIDDM, GERD, HTN, s/p Wallace procedure for perforated diverticulitis. Per MD notes, pt to discharge home independently today with family support and no identified needs. No IM/DUNAWAY forms signed, not applicable. Pt to follow up as directed. CM available for any further issues or concerns. Discharge Plan: Home independently Date Signed: 12/24/2017 12:42 PM Electronically Signed By:Scarlet Banuelos RN Intervention Information
[2017-12-26] MEDS ORDERED: PATCH REMOVAL 1 EA PATCH TD SCH (11:48)
--- NOTE | 2017-12-26 12:12 | GOP ---
DATE OF OPERATION: SURGEON: Jean-Pierre Wang MD PREOPERATIVE DIAGNOSIS: Abdominal tissue laxity with rectus diastasis. POSTOPERATIVE DIAGNOSIS: Abdominal tissue laxity with rectus diastasis. PROCEDURE PERFORMED: Abdominoplasty. FINDINGS: ESTIMATED BLOOD LOSS: Less than 25 mL. DESCRIPTION OF PROCEDURE: This procedure was performed in conjunction with abdominal hernia repairs, which were carried out by Dr. David Carrington. Incision for the procedure was carried out according to preoperative markings with a transverse lower abdominal incision and dissection taken at the fascia level superiorly up to the sternum and the rib cage bilaterally. Umbilicus was left in-situ. Abdomi nal hernias were left intact and these were repaired by Dr. Carrington. The remaining rectus diastasis was then oversewn with 0 Ethibond interrupted [id number]-lo-xnrsi sutures and 0 Ethibond running horizontal mattress sutures. Skin and fat flap were advanced down and the exc ess skin and fat was measured and excised, along with most of the subscarpal fat from the upper abdom en. Progressive tension quilting sutures of 3-0 Stratafix were placed between the abdominal muscle f ascia and the overlying skin fat flaps to eliminate space and take up tension. A 10 mm flat Delvis kson-Vasquez drain was placed across the lower abdomen and skin was closed with 3-0 Stratafix running s ubcuticular sutures. Dressings of Steri-Strips and gauze were applied. The umbilicus was brought ou t and sutured with 5-0 Prolene and the umbilicus and the drain were dressed with Xeroform and gauze. Procedure was tolerated well. /[id number]/MODL
[2017-12-30] MEDS ORDERED: ESTRADIOL 0.025 MG PATCH TD SCH (09:00)
== END 2017-12-24 11:17 | disposition home or self-care (01) ==
LOC: F3E 10:28
PROVIDERS: ADMIT Surgery; ATTEND Surgery
DX: K43.2 Incisional hernia without obstruction or gangrene (principal); K43.9 Ventral hernia without obstruction or gangrene; Z41.1 Encounter for cosmetic surgery; M62.08 Separation of muscle (nontraumatic), other site; L98.7 Excessive and redundant skin and subcutaneous tissue; E11.9 Type 2 diabetes mellitus without complications; I10 Essential (primary) hypertension; E78.00 Pure hypercholesterolemia, unspecified; K21.9 Gastro-esophageal reflux disease without esophagitis; Z79.84 Long term (current) use of oral hypoglycemic drugs; Z79.890 Hormone replacement therapy; Z87.19 Personal history of other diseases of the digestive system; Z98.890 Other specified postprocedural states
CPT/HCPCS: 15830; 15847; 49560; G0378; J0171; J0690; J1100; J1170; J1650; J2250; J2405; J2704; J3010

== ENCOUNTER 2018-01-14 23:00 | Inpatient (IN) | payer OTHER ==
--- NOTE | 2018-01-14 23:07 | EDPHY ---
H & P Stated Complaint: hernia repair 3 weeks ago and now having lower abd pain with nausea Time Seen by Provider: 01/14/18 23:07 HPI/ROS: HPI CHIEF COMPLAINT: Abdominal pain. HISTORY OF PRESENT ILLNESS: This is a very pleasant 62-year-old female, she has a history of multiple abdominal surgeries including diverticulitis with rupture requiring colostomy, colostomy reversal, history of diverticulitis, and then she had a ventral hernia repair, also abdominal plasty. The her surgeon is Dr. Carrington. Her plastic surgeons Dr. Wang. She is 3 weeks out recovering from the ventral hernia repair and colostomy reversal. Past Medical History: Pre diabetes Past Surgical History: Multiple abdominal surgeries including laparoscopic surgery, endometriosis, colostomy, colostomy reversal, colon resection, hernia repair Social History: Denies drugs alcohol tobacco. Lives locally. at bedside. Retired nurse. Family History: Noncontributory ROS REVIEW OF SYSTEMS: 10 Systems were reviewed and negative with the exception of the elements mentioned in the history of present illness. Exam Constitutional triage nursing summary reviewed, vital signs reviewed, awake/ alert. Eyes normal conjunctivae and sclera, EOMI, PERRLA. HENT normal inspection, atraumatic, moist mucus membranes, no epistaxis, neck supple/ no meningismus, no raccoon eyes. Respiratory clear to auscultation bilaterally, normal breath sounds, no respiratory distress, no wheezing. Cardiovascular rate normal, regular rhythm, no murmur, no edema, distal pulses normal. Gastrointestinal multiple incision/scars c/d/i. Mild ttp diffuse, no peritoneal signs, no guarding, no bowel sounds on exam, no distension, no pulsatile mass. Genitourinary no CVA tenderness. Musculoskeletal no midline vertebral tenderness, full range of motion, no calf swelling, no tenderness of extremities, no meningismus, good pulses, neurovascularly intact. Skin pink, warm, & dry, no rash, skin atraumatic. Neurologic awake, alert and oriented x 3, AAOx3, moves all 4 extremities equally, motor intact, sensory intact, CN II-XII intact, normal cerebellar, normal vision, normal speech. Psychiatric normal mood/affect. Heme/Lymph/Immune no lymphadenopathy. Differential diagnosis includes but is not limited to and in no particular order : Bowel obstruction, appendicitis, gallbladder disease, diverticulitis, colitis , enteritis, perforated viscus, gastritis, GERD, esophagitis, urinary tract infection, pyelonephritis, kidney stones Medical Decision Making: Plan for this patient IV establishment IV fluid bolus , IV Dilaudid for pain control, IV Zofran nausea, basic blood work, CT scan abdomen pelvis with IV contrast rule out bowel obstruction. Re-evaluation: I have consult Dr. Graham. General surgery for admission. He will admit her to the hospital. Agrees with current treatment. NG tube bowel rest IV fluids. I have updated the patient about her CT scan results at 1:[address] scan abdomen pelvis with IV contrast shows SBO. Large amount of fluid distention of her stomach. Requiring NG tube. Pain is much improved on re-evaluation at 1:15 a.m.. Plan for admission for bowel rest, SBO, NG tube, IV fluids, pain control. Dr. Graham to see. Source: Patient - Personal History Current Tetanus/Diphtheria Vaccine: Yes Current Tetanus Diphtheria and Acellular Pertussis (TDAP): Yes - Medical/Surgical History Hx Asthma: No Hx Chronic Respiratory Disease: No Hx Diabetes: No Hx Cardiac Disease: No Hx Renal Disease: No Hx Cirrhosis: No Hx Alcoholism: No Hx HIV/AIDS: No Hx Splenectomy or Spleen Trauma: No Other PMH: divertic, endometriosis, laparotomy, gerd; colostomy; abscess; ESBL; pre DM, hernia - Social History Smoking Status: Never smoked Constitutional: Initial Vital Signs Temperature (C) 36.6 C 01/14/18 23:01 Heart Rate 100 01/14/18 23:01 Respiratory Rate 18 01/14/18 23:01 Blood Pressure 141/95 H 01/14/18 23:01 O2 Sat (%) 95 01/14/18 23:01 O2 Delivery Mode Room Air Allergies/Adverse Reactions: ciprofloxacin [From Cipro] Allergy (Verified 01/14/18 23:05) TINNITIS codeine Allergy (Verified 01/14/18 23:05) n/v propoxyphene [From Darvocet-N] Allergy (Verified 01/14/18 23:05) Itching Home Medications: Medication Instructions Recorded Progesterone, Micronized 100 mg PO HS 03/21/17 [Progesterone] Spironolactone 100 mg PO DAILY 03/21/17 metFORMIN HCL [Metformin HCl ER] 1,500 mg PO DAILY18 03/21/17 Herbals/Supplements -Info Only 1 ea PO BID 04/02/17 Estradiol [Climara] 0.025 mg TD SA@0900 06/10/17 Multivitamins [Multivitamin (*)] 1 each PO DAILY #0 06/10/17 Ibuprofen [Motrin (*)] 600 mg PO Q8HRS PRN #30 tab 07/18/17 [place]-3 Fatty Acids [Fish Oil 1000 1,000 mg PO HS 12/15/17 mg (*)] HYDROmorphone HCL [Dilaudid 4 mg 4 mg PO Q4HRS PRN #30 tab 12/24/17 (*)] Medical Decision Making - Diagnostics Imaging Results: Imaging Impressions Abdomen CT 01/14/18 23:14 Impression: 1. Findings compatible with small bowel obstruction are noted as detailed above. 2. Prominent dilatation of the fluid-filled stomach could predispose the patient to aspiration. 3. Extensive colonic diverticulosis without diverticulitis. 4. See above report for additional findings. Results called and discussed with David Schulte MD on 01/15/2018 at 0:20. - Data Points Laboratory Results: Laboratory Results 01/14/18 23:15 01/14/18 23:15 01/15/18 01/14/18 01/14/18 00:20 23:15 23:15 WBC RBC Hgb Hct MCV MCH MCHC RDW Plt Count MPV Neut % (Auto) Lymph % (Auto) Wilkin % (Auto) Eos % (Auto) Baso % (Auto) Nucleat RBC Rel Count Absolute Neuts (auto) Absolute Lymphs (auto) Absolute Monos (auto) Absolute Eos (auto) Absolute Basos (auto) Absolute Nucleated RBC Immature Gran % Immature Gran # PT 12.7 SEC SEC (12.0-15.0) INR 0.93 (0.83-1.16) APTT 27.2 SEC SEC (23.0-38.0) VBG Lactic Acid Sodium 141 mEq/L mEq/L (135-145) Potassium 4.1 mEq/L mEq/L (3.5-5.2) Chloride 105 mEq/L mEq/L (97-110) Carbon Dioxide 24 mEq/l mEq/l (22-31) Anion Gap 12 mEq/L mEq/L (6-14) BUN 19 mg/dL mg/dL (7-23) Creatinine 0.8 mg/dL mg/dL (0.6-1.0) Estimated GFR > 60 Glucose 149 mg/dL H mg/dL (70-100) Calcium 9.8 mg/dL mg/dL (8.5-10.4) Total Bilirubin 0.2 mg/dL mg/dL (0.1-1.4) Conjugated Bilirubin 0.1 mg/dL mg/dL (0.0-0.5) Unconjugated Bilirubin 0.1 mg/dL mg/dL (0.0-1.1) AST 20 IU/L IU/L (14-46) ALT 26 IU/L IU/L (9-52) Alkaline Phosphatase 92 IU/L IU/L (38-126) Total Protein 7.9 g/dL g/dL (6.3-8.2) Albumin 5.0 g/dL g/dL (3.5-5.0) Lipase 210 IU/L IU/L (23-300) Urine Color YELLOW Urine Appearance CLEAR Urine pH 5.0 (5.0-7.5) Ur Specific [place] > 1.060 H (1.002-1.030) Urine Protein NEGATIVE (NEGATIVE) Urine Ketones 1+ H (NEGATIVE) Urine Blood NEGATIVE (NEGATIVE) Urine Nitrate NEGATIVE (NEGATIVE) Urine Bilirubin NEGATIVE (NEGATIVE) Urine Urobilinogen NEGATIVE EU EU (0.2-1.0) Ur Leukocyte Esterase NEGATIVE (NEGATIVE) Urine Glucose NEGATIVE (NEGATIVE) 01/14/18 01/14/18 23:15 23:15 WBC 13.21 10^3/uL H 10^3/uL (3.80-9.50) RBC 5.35 10^6/uL H 10^6/uL (4.18-5.33) Hgb 15.1 g/dL g/dL (12.6-16.3) Hct 46.3 % % (38.0-47.0) MCV 86.5 fL fL (81.5-99.8) MCH 28.2 pg pg (27.9-34.1) MCHC 32.6 g/dL g/dL (32.4-36.7) RDW 14.4 % % (11.5-15.2) Plt Count 359 10^3/uL 10^3/uL (150-400) MPV 10.3 fL fL (8.7-11.7) Neut % (Auto) 89.7 % H % (39.3-74.2) Lymph % (Auto) 7.8 % L % (15.0-45.0) Wilkin % (Auto) 1.7 % L % (4.5-13.0) Eos % (Auto) 0.2 % L % (0.6-7.6) Baso % (Auto) 0.4 % % (0.3-1.7) Nucleat RBC Rel Count 0.0 % % (0.0-0.2) Absolute Neuts (auto) 11.85 10^3/uL H 10^3/uL (1.70-6.50) Absolute Lymphs (auto) 1.03 10^3/uL 10^3/uL (1.00-3.00) Absolute Monos (auto) 0.23 10^3/uL L 10^3/uL (0.30-0.80) Absolute Eos (auto) 0.03 10^3/uL 10^3/uL (0.03-0.40) Absolute Basos (auto) 0.05 10^3/uL 10^3/uL (0.02-0.10) Absolute Nucleated RBC 0.00 10^3/uL 10^3/uL (0-0.01) Immature Gran % 0.2 % % (0.0-1.1) Immature Gran # 0.02 10^3/uL 10^3/uL (0.00-0.10) PT INR APTT VBG Lactic Acid 1.9 mmol/L mmol/L (0.7-2.1) Sodium Potassium Chloride Carbon Dioxide Anion Gap BUN Creatinine Estimated GFR Glucose Calcium Total Bilirubin Conjugated Bilirubin Unconjugated Bilirubin AST ALT Alkaline Phosphatase Total Protein Albumin Lipase Urine Color Urine Appearance Urine pH Ur Specific [place] Urine Protein Urine Ketones Urine Blood Urine Nitrate Urine Bilirubin Urine Urobilinogen Ur Leukocyte Esterase Urine Glucose Medications Given: Discontinued Medications Hydromorphone HCl (Dilaudid) 1 mg IVP ONCE ONE Stop: 01/14/18 23:28 Last Admin: 01/14/18 23:30 Dose: 1 mg Sodium Chloride (Ns) 1,000 mls @ 0 mls/hr IV EDNOW ONE; Wide Open PRN Reason: Protocol Stop: 01/14/18 23:15 Last Admin: 01/14/18 23:17 Dose: 1,000 mls Ondansetron HCl (Zofran) 4 mg IVP EDNOW ONE Stop: 01/14/18 23:15 Last Admin: 01/14/18 23:24 Dose: 4 mg Departure - Departure Disposition: [facility] Inpatient Acute Clinical Impression: SBO (small bowel obstruction) Condition: Fair Referrals: Bonita Ni MD [Primary Care Provider] - As per Instructions
[2018-01-14] MEDS ORDERED: ONDANSETRON 4 MG/2 ML VIAL IVP ONE (23:14)
[2018-01-14] MEDS ORDERED: NS 1,000 ML IV ONE (23:14)
[2018-01-14 23:27] LABS: PLATELET COUNT 359 10^3/uL (150-400)
[2018-01-14] MEDS ORDERED: HYDROmorphONE/DILAUDID 1 MG/ML INJ IVP ONE (23:27)
[2018-01-14] MEDS ORDERED: HYDROmorphONE/DILAUDID 1 MG/ML INJ ONE (23:28)
[2018-01-14 23:36] LABS: INR 0.93 (0.83-1.16); PROTIME(PATIENT) 12.7 SEC (12.0-15.0)
[2018-01-14] MEDS ORDERED: IOPAMIDOL (ISOVUE-300) 100 ML BTL ONE (23:37)
[2018-01-15] MEDS ORDERED: HYDROmorphONE/DILAUDID 2 MG/ML INJ IVP ONE (01:14)
[2018-01-15] MEDS ORDERED: LIDOCAINE 2% JELLY 5 ML TUBE ONE (01:29)
[2018-01-15] MEDS: LR 1,000 ML IV SCH ×3 (03:13→22:54)
[2018-01-15] MEDS: ONDANSETRON 4 MG/2 ML VIAL IVP PRN ×4 (03:44→21:08)
[2018-01-15] MEDS: HYDROmorphONE/DILAUDID 1 MG/ML INJ IVP PRN ×5 (06:34→23:33)
[2018-01-15] MEDS ORDERED: PROMETHAZINE HCL 25 MG/ML INJ IVP PRN (09:47)
--- NOTE | 2018-01-15 10:28 | GHP ---
DATE OF ADMISSION: 01/15/2018 HISTORY OF PRESENT ILLNESS: This is a 62-year-old female with a history of abdominal pain, nausea an d vomiting. Per the patient, who is status post multiple hernia repair and abdominoplasty 3 weeks ag o, had sudden onset of nausea, vomiting, abdominal pain last evening. This progressed. The patient presented to the emergency department. The patient at this point states her pain has improved. She has had 1 episode of minor emesis this morning. She is not currently nauseated, however. Patient [facility] she has not had a history of prior partial small-bowel obstruction, although she has had postope rative ileus in the past. The patient has had multiple abdominal surgeries, including colectomy with colostomy, colostomy takedown, multiple laparoscopies. The patient has not had any fever or chills at home. There are no ill contacts. PAST MEDICAL HISTORY: Significant for endometriosis, diabetes type 2. MEDICATIONS: Include metformin, spironolactone, Prevacid, and progesterone. ALLERGIES: Include Cipro, codeine, and Darvocet. PAST SURGICAL HISTORY: Significant for the above. SOCIAL HISTORY: Patient is a nonsmoker. PHYSICAL EXAM: VITAL SIGNS: Temperature is 36.7, pulse 72, respirations 16, blood pressure is 153/9 4. GENERAL: She is an alert, comfortable appearing female with an NG tube in place. HEENT: Sclera e anicteric. There is no evidence of jugular venous distention. HEART: Regular rate and rhythm. L UNGS: Clear to auscultation bilaterally. ABDOMEN: Soft. It is mildly tender to palpation in the l eft upper quadrant. There is no rebound or guarding. Her abdomen is nondistended. EXTREMITIES: Wi thout cyanosis, clubbing, or edema. DIAGNOSTIC DATA: CBC with a white count of 13.2, hemoglobin 15.1, hematocrit of 46.3, and platelets of 359. Chemistries demonstrate sodium 141, potassium 4.1, chloride 105, CO2 24, BUN 19, creatinine 0.9, and glucose of 149. LFTs are essentially normal. DIAGNOSTIC IMAGING: Patient has a CT scan of the abdomen pelvis which demonstrates fairly diffuse sm all bowel dilation. No free fluid or free air is identified. No mass is noted. ASSESSMENT: 62-year-old female with partial small bowel obstruction. Options were discussed at [facility] with the patient. Currently, she is improving with conservative therapy, including nasogastric tu be, intravenous fluid, and bowel rest. If she continues to improve, we will plan on a clamping trial on 01/16/2018. Signs and symptoms of concern were discussed the patient. The possibility of operat arthur intervention was discussed. Her questions were answered. /[id number]/MODL
--- NOTE | 2018-01-15 14:15 | PDMN ---
Medical Necessity Medical necessity: MCG M210 intestinal obstruction : 2 days - pt presents with abd pain S/p hernia repair 3 weeks ago, CT shows SBO - NG tube placed , PMH hernia repair X 3 weeks ago, prior diverticulitis req. resection, pre diabetes- anticipate > 2 MN ongoing med nec care, further eval monitoring and tx
--- NOTE | 2018-01-15 14:46 | ASMTCMCOM ---
CM Note CM Note Notes: Chart reviewed for discharge planning needs. Patient is a 62 year old female admitted via ed with abdominal pain and nausea. She had abdominal surgery with Dr. Carrington three weeks ago. She is admitted wt SBO. CM to follow for needs, Plan: TBD Date Signed: 01/15/2018 02:45 PM Electronically Signed By:Charmaine Gomes RN
[2018-01-15] MEDS: PANTOPRAZOLE SODIUM 40 MG VIAL IVP SCH (16:31)
[2018-01-16] MEDS: ONDANSETRON 4 MG/2 ML VIAL IVP PRN (04:26)
[2018-01-16] MEDS: HYDROmorphONE/DILAUDID 1 MG/ML INJ IVP PRN ×3 (04:27→14:36)
[2018-01-16] MEDS: PANTOPRAZOLE SODIUM 40 MG VIAL IVP SCH (09:42)
[2018-01-16] MEDS ORDERED: D5W 1/2 NS 1,000 ML IV SCH (18:00)
--- NOTE | 2018-01-16 18:26 | SOAPPROG ---
SOAP Progress Note Assessment/Plan: Assessment: SBO vs. ileus (CT/KUB reviewed) Lisette had significant pain initially and has improved since NGT decompression Currently she has clinical findings more consistent with a paralytic ileus, which she has had in the past No signs of bowel ischemia Plan: NGT decompression trial of Ketoralac for pain/MONTERROSO change fluids to D5NS + 20 meq/KCL KUB in AM 01/16/18 18:33 01/16/18 18:37 Subjective: reports less abdominal pain after NGT decompression/no flatus/no BM Objective: Vital Signs Temp Pulse Resp BP Pulse Ox 37.2 C 92 16 141/80 H 94 01/16/18 16:12 01/16/18 16:12 01/16/18 16:12 01/16/18 16:12 01/16/18 16:25 Laboratory Results 01/16/18 04:04 01/16/18 04:04 01/15/18 01/16/18 01/17/18 05:59 05:59 05:59 Intake Total 3190 Output Total 3000 1600 Balance 190 -1600 PT 12.7 SEC (12.0-15.0) 01/14/18 23:15 INR 0.93 (0.83-1.16) 01/14/18 23:15 - Pending Discharge Pending Discharge Within 24 Hours: No Pending Discharge Within 48 Hours: No Physical Exam - Physical Exam General Appearance: alert, mild distress, other Abdomen: soft, distended, other (distended, soft, no bowel sounds) Pelvic Exam: deferred Rectal: deferred Skin: warm/dry Neuro/Psych: alert, normal mood/affect, oriented x 3 ICD10 Worksheet Patient Problems: Problems Problem Status Onset SBO (small bowel obstruction) Acute Carbapenem-resistant Enterobacteriaceae infection Acute Diverticulitis large intestine Acute Ileus, postoperative Acute Pelvic abscess in female Acute Type II diabetes mellitus Acute - ICD10 Problem Qualifiers (1) SBO (small bowel obstruction) (2) Ileus, postoperative (3) Type II diabetes mellitus Qualifiers: Diabetes mellitus intermediate insulin use: without family lawyer use Diabetes mellitus complication status: without complication Qualified Code(s): E11.9 - Type 2 diabetes mellitus without complications
[2018-01-16] MEDS: D5W NS W/ 20 KCl/L 1,000 ML IV SCH (18:36)
[2018-01-16] MEDS: KETOROLAC 15 MG/1 ML SDV IVP PRN (18:46)
[2018-01-17] MEDS: KETOROLAC 15 MG/1 ML SDV IVP PRN ×3 (00:53→13:36)
[2018-01-17] MEDS: D5W NS W/ 20 KCl/L 1,000 ML IV SCH ×3 (02:32→21:23)
[2018-01-17] MEDS ORDERED: ALTEPLASE 2 MG VIAL IVP PRN (07:57)
--- NOTE | 2018-01-17 08:05 | SOAPPROG ---
SOJAYDE Progress Note Assessment/Plan: Assessment:1. s/p sigmoid resection/Wallace's procedure for perforated diverticulitis and abscess March 2017 cultures at that time grew out Enterobacter Cloacae Complex resistant to Amp/Sulbactam, Cefazolin, Cefoxitin, Ceftriaxone, Ertapenem, Pip/Tazo ID recommended contact isolation x 12 months. She has subsequently undergone takedown of her colostomy with coloproctostomy and most recently abdominoplasty and repair of multiple abdominal wall hernias without infection 2.SBO vs. ileus: her bowel sounds are not characteristic of SBO, however imaging studies suggest obstruction there are no indications for surgical intervention at this point. If surgery is necessary due to failure to resolve with NGT decompression it would be technically challenging. I would attempt a laparoscopic approach to avoid disrupting her recent abdominoplasty and hernia repairs 3. NIDDM: metformin has been held she may require insulin if TPN is started 4. Day #3 without oral intake I anticipate she will benefit from TPN if she has no improvement in symptoms within the next 48 hours Plan: NGT decompression PICC line Dietary consult increase activity and avoidance of narcotics if possible 01/16/18 18:33 01/16/18 18:37 01/17/18 08:04 01/17/18 08:08 Subjective: resting comfortably after starting Ketoralac/MONTERROSO resolved no flatus or BM Objective: Vital Signs Temp Pulse Resp BP Pulse Ox 36.9 C 89 16 118/76 94 01/17/18 04:00 01/17/18 04:00 01/17/18 04:00 01/17/18 04:00 01/17/18 04:00 Laboratory Results 01/17/18 04:54 01/17/18 04:54 01/16/18 01/17/18 01/18/18 05:59 05:59 05:59 Intake Total 3190 3020 Output Total 3000 3000 Balance 190 20 PT 12.7 SEC (12.0-15.0) 01/14/18 23:15 INR 0.93 (0.83-1.16) 01/14/18 23:15 KUB reviewed: dilated loop small bowel central abd/some gas and stool in the colon Physical Exam - Physical Exam General Appearance: no apparent distress Respiratory: lungs clear, normal breath sounds Cardiac/Chest: regular rate, rhythm Abdomen: soft, distended, other (very hypoactive bowel sounds, occasional "tinkle") Pelvic Exam: deferred Rectal: deferred Skin: warm/dry Neuro/Psych: alert, normal mood/affect, oriented x 3 ICD10 Worksheet Patient Problems: Problems Problem Status Onset SBO (small bowel obstruction) Acute Carbapenem-resistant Enterobacteriaceae infection Acute Diverticulitis large intestine Acute Ileus, postoperative Acute Pelvic abscess in female Acute Type II diabetes mellitus Acute - ICD10 Problem Qualifiers (1) SBO (small bowel obstruction) (2) Ileus, postoperative (3) Type II diabetes mellitus Qualifiers: Diabetes mellitus longterm insulin use: without lobsterman use Diabetes mellitus complication status: without complication Qualified Code(s): E11.9 - Type 2 diabetes mellitus without complications
[2018-01-17] MEDS: PANTOPRAZOLE SODIUM 40 MG VIAL IVP SCH ×2 (09:07→21:24)
[2018-01-17] MEDS ORDERED: NA BICARBONATE 50 MEQ/50 ML VIAL ONE (13:59)
[2018-01-17] MEDS: HYDROmorphONE/DILAUDID 1 MG/ML INJ IVP PRN ×4 (16:51→23:55)
[2018-01-18] MEDS: HYDROmorphONE/DILAUDID 1 MG/ML INJ IVP PRN ×4 (02:05→18:15)
[2018-01-18] MEDS: ACETAMINOPHEN 650 MG SUPP PR PRN (03:38)
[2018-01-18] MEDS: D5W NS W/ 20 KCl/L 1,000 ML IV SCH ×2 (06:02→14:46)
--- NOTE | 2018-01-18 08:30 | SOAPPROG ---
SOAP Progress Note Assessment/Plan: Assessment:1. s/p sigmoid resection/Wallace's procedure for perforated diverticulitis and abscess March 2017 cultures at that time grew out Enterobacter Cloacae Complex resistant to Amp/Sulbactam, Cefazolin, Cefoxitin, Ceftriaxone, Ertapenem, Pip/Tazo ID recommended contact isolation x 12 months. She has subsequently undergone takedown of her colostomy with coloproctostomy and most recently abdominoplasty and repair of multiple abdominal wall hernias without infection 2.SBO vs. ileus: her bowel sounds are not characteristic of SBO, however imaging studies suggest obstruction there are no indications for surgical intervention at this point. If surgery is necessary due to failure to resolve with NGT decompression it would be technically challenging. I would attempt a laparoscopic approach to avoid disrupting her recent abdominoplasty and hernia repairs 3. NIDDM: metformin has been held she may require insulin if TPN is started 4. Day #3 without oral intake I anticipate she will benefit from TPN if she has no improvement in symptoms within the next 48 hours Plan: NGT decompression PICC line Dietary consult increase activity and avoidance of narcotics if possible 01/16/18 18:33 01/16/18 18:37 01/17/18 08:04 01/17/18 08:08 Subjective: c/o back pain, passed small amount of flatus Objective: Vital Signs Temp Pulse Resp BP Pulse Ox 37.1 C 92 16 140/80 H 95 01/18/18 04:00 01/18/18 04:00 01/18/18 04:00 01/18/18 04:00 01/18/18 04:00 Laboratory Results 01/18/18 04:25 01/18/18 04:25 01/17/18 01/18/18 01/19/18 05:59 05:59 05:59 Intake Total 3020 2400 Output Total 3000 2800 Balance 20 -400 PT 12.7 SEC (12.0-15.0) 01/14/18 23:15 INR 0.93 (0.83-1.16) 01/14/18 23:15 - Pending Discharge Pending Discharge Within 24 Hours: No Pending Discharge Within 48 Hours: No Physical Exam - Physical Exam General Appearance: mild distress Respiratory: lungs clear, normal breath sounds Cardiac/Chest: regular rate, rhythm Abdomen: soft, distended, other (hypoactive bowel sounds with mild diffuse tenderness) ICD10 Worksheet Patient Problems: Problems Problem Status Onset SBO (small bowel obstruction) Acute Carbapenem-resistant Enterobacteriaceae infection Acute Diverticulitis large intestine Acute Ileus, postoperative Acute Pelvic abscess in female Acute Type II diabetes mellitus Acute - ICD10 Problem Qualifiers (1) SBO (small bowel obstruction) (2) Ileus, postoperative (3) Type II diabetes mellitus Qualifiers: Diabetes mellitus transport technician insulin use: without transport technician use Diabetes mellitus complication status: without complication Qualified Code(s): E11.9 - Type 2 diabetes mellitus without complications
[2018-01-18] MEDS: PANTOPRAZOLE SODIUM 40 MG VIAL IVP SCH ×2 (09:13→21:44)
[2018-01-18] MEDS: KETOROLAC 15 MG/1 ML SDV IVP PRN ×3 (09:13→21:44)
[2018-01-18] MEDS: METOCLOPRAMIDE 10 MG/2 ML VIAL IVP SCH ×3 (11:57→23:48)
--- NOTE | 2018-01-18 14:45 | ASMTCMCOM ---
CM Note CM Note Notes: CM spoke to [facility]. Pt will not have any d/c needs. No therapies ordered at this time. CM available for changes. Plan: Independent Date Signed: 01/18/2018 02:44 PM Electronically Signed By:ANDRE Smart
[2018-01-18] MEDS: LORazepam 2 MG/ML INJ IVP PRN (21:50)
--- NOTE | 2018-01-19 06:13 | SOAPPROG ---
SOAP Progress Note Assessment/Plan: Assessment:1. s/p sigmoid resection/Wallace's procedure for perforated diverticulitis and abscess March 2017 cultures at that time grew out Enterobacter Cloacae Complex resistant to Amp/Sulbactam, Cefazolin, Cefoxitin, Ceftriaxone, Ertapenem, Pip/Tazo ID recommended contact isolation x 12 months. She has subsequently undergone takedown of her colostomy with coloproctostomy and most recently abdominoplasty and repair of multiple abdominal wall hernias without infection 2.SBO vs. ileus: her bowel sounds are not characteristic of SBO, however imaging studies suggest obstruction there are no indications for surgical intervention at this point. If surgery is necessary due to failure to resolve with NGT decompression it would be technically challenging. I would attempt a laparoscopic approach to avoid disrupting her recent abdominoplasty and hernia repairs She appears to be improving this morning, will obtain a repeat KUB to assess progress 3. NIDDM: metformin has been held she may require insulin if TPN is started 4. Day #5 without oral intake I anticipate she will benefit from TPN if she has no improvement in symptoms within the next 24 hours Plan: NGT decompression repeat KUB increase activity and avoidance of narcotics if possible 01/16/18 18:33 01/16/18 18:37 01/17/18 08:04 01/17/18 08:08 01/19/18 06:11 Subjective: reports back pain, small BM late yesterday Objective: Vital Signs Temp Pulse Resp BP Pulse Ox 37.7 C 112 H 16 116/74 94 01/19/18 03:36 01/19/18 03:36 01/19/18 03:36 01/19/18 03:36 01/19/18 03:36 Laboratory Results 01/18/18 04:25 01/18/18 04:25 01/18/18 01/19/18 01/20/18 05:59 05:59 05:59 Intake Total 2400 2530 Output Total 2800 1000 Balance -400 1530 PT 12.7 SEC (12.0-15.0) 01/14/18 23:15 INR 0.93 (0.83-1.16) 01/14/18 23:15 - Pending Discharge Pending Discharge Within 24 Hours: No Pending Discharge Within 48 Hours: No Physical Exam - Physical Exam General Appearance: no apparent distress (sleeping) Respiratory: lungs clear Cardiac/Chest: regular rate, rhythm Abdomen: soft, distended (bowel sounds somewhat improved this AM) Pelvic Exam: deferred Rectal: deferred Back: CVA tenderness (mild) Neuro/Psych: normal mood/affect, oriented x 3 ICD10 Worksheet Patient Problems: Problems Problem Status Onset SBO (small bowel obstruction) Acute Carbapenem-resistant Enterobacteriaceae infection Acute Diverticulitis large intestine Acute Ileus, postoperative Acute Pelvic abscess in female Acute Type II diabetes mellitus Acute - ICD10 Problem Qualifiers (1) SBO (small bowel obstruction) (2) Ileus, postoperative (3) Type II diabetes mellitus Qualifiers: Diabetes mellitus lineman a class insulin use: without lineman a class use Diabetes mellitus complication status: without complication Qualified Code(s): E11.9 - Type 2 diabetes mellitus without complications
[2018-01-19] MEDS: METOCLOPRAMIDE 10 MG/2 ML VIAL IVP SCH ×3 (06:24→17:36)
[2018-01-19] MEDS: KETOROLAC 15 MG/1 ML SDV IVP PRN ×3 (06:29→22:39)
[2018-01-19] MEDS: PANTOPRAZOLE SODIUM 40 MG VIAL IVP SCH ×2 (09:44→20:56)
[2018-01-19] MEDS: D5W NS W/ 20 KCl/L 1,000 ML IV SCH (09:53)
[2018-01-19 14:18] LABS: PLATELET COUNT 170 10^3/uL (150-400)
[2018-01-19] MEDS: ACETAMINOPHEN 650 MG SUPP PR PRN (21:07)
[2018-01-20] MEDS: METOCLOPRAMIDE 10 MG/2 ML VIAL IVP SCH ×5 (00:07→23:45)
[2018-01-20] MEDS: KETOROLAC 15 MG/1 ML SDV IVP PRN ×2 (06:06→22:23)
[2018-01-20] MEDS ORDERED: GASTROVIEW 30 ML UNIT PO ONE (06:54)
--- NOTE | 2018-01-20 07:22 | SOAPPROG ---
SOAP Progress Note Assessment/Plan: Assessment:1. s/p sigmoid resection/Wallace's procedure for perforated diverticulitis and abscess March 2017 cultures at that time grew out Enterobacter Cloacae Complex resistant to Amp/Sulbactam, Cefazolin, Cefoxitin, Ceftriaxone, Ertapenem, Pip/Tazo ID recommended contact isolation x 12 months. She has subsequently undergone takedown of her colostomy with coloproctostomy and most recently abdominoplasty and repair of multiple abdominal wall hernias without infection 2.SBO vs. ileus: her bowel sounds are not characteristic of SBO, however imaging studies suggest obstruction there are no indications for surgical intervention at this point. If surgery is necessary due to failure to resolve with NGT decompression it would be technically challenging. I would attempt a laparoscopic approach to avoid disrupting her recent abdominoplasty and hernia repairs She has clinical improvement in the past 24 hours and is passing some liquid stool. Will administer Gastrograffin via her NGT and obtain a KUB later today 3. NIDDM: metformin has been held she may require insulin if TPN is started 4. Day #6 without oral intake I anticipate she will benefit from TPN if she has no improvement in symptoms soon or needs to go to surgery 5. Fever: wbc 2.8, venous lactate 1.1, CXR shows atelectasis, blood cultures pending-will hold off on abx Plan: NGT decompression repeat KUB after gastrograffin increase activity and avoidance of narcotics if possible incentive spirometry 01/16/18 18:33 01/16/18 18:37 01/17/18 08:04 01/17/18 08:08 01/19/18 06:11 01/20/18 07:18 Subjective: feeling a little better this morning, started passing liquid stool yesterday after receiving Reglan Objective: Vital Signs Temp Pulse Resp BP Pulse Ox 37.1 C 94 16 106/78 92 01/20/18 03:25 01/20/18 03:25 01/20/18 03:25 01/20/18 03:25 01/20/18 03:25 Laboratory Results 01/19/18 14:00 01/18/18 04:25 01/19/18 01/20/18 01/21/18 05:59 05:59 05:59 Intake Total 2530 5605 Output Total 1000 4900 Balance 1530 705 PT 12.7 SEC (12.0-15.0) 01/14/18 23:15 INR 0.93 (0.83-1.16) 01/14/18 23:15 - Pending Discharge Pending Discharge Within 24 Hours: No Pending Discharge Within 48 Hours: No Physical Exam - Physical Exam General Appearance: WD/WN, alert Respiratory: lungs clear, decreased breath sounds Cardiac/Chest: regular rate, rhythm Abdomen: soft, distended (bowel sounds returning, no high pitched or tinkling bowel sounds) Pelvic Exam: deferred Rectal: deferred Skin: normal color, warm/dry Extremities: other (RUE PICC) ICD10 Worksheet Patient Problems: Problems Problem Status Onset SBO (small bowel obstruction) Acute Carbapenem-resistant Enterobacteriaceae infection Acute Diverticulitis large intestine Acute Ileus, postoperative Acute Pelvic abscess in female Acute Type II diabetes mellitus Acute - ICD10 Problem Qualifiers (1) SBO (small bowel obstruction) (2) Ileus, postoperative (3) Type II diabetes mellitus Qualifiers: Diabetes mellitus oil heaterman insulin use: without snf use Diabetes mellitus complication status: without complication Qualified Code(s): E11.9 - Type 2 diabetes mellitus without complications
[2018-01-20] MEDS: PANTOPRAZOLE SODIUM 40 MG VIAL IVP SCH ×2 (07:43→20:47)
--- NOTE | 2018-01-20 15:05 | SOAPPROG ---
Downtime Inpatient MD Late Entry SOAP Note: KUB reviewed after gastrograffin administration/contrast enhanced dilated loops of small bowel throughout after >4 hours Pt feels worse and is not passing anything from below. I recommended proceeding with lap vs. open enterolysis to be scheduled this afternoon and she agrees S MD Charissa, FACS
[2018-01-20] MEDS ORDERED: LR 1,000 ML IV ONE (15:56)
--- NOTE | 2018-01-20 15:59 | ASMTCMCOM ---
CM Note CM Note Notes: Pts case discussed w/ [facility]. Pt is not medically stable to d/c. Pt will most likely d/c independent when medically stable. CM available for changes. Plan: Independent Date Signed: 01/20/2018 03:58 PM Electronically Signed By:ANDRE Smart
[2018-01-20] MEDS ORDERED: DEXAMETHASONE 4 MG/ML VIAL IVP PRN (16:14)
[2018-01-20] MEDS ORDERED: fentaNYL 100 MCG/2 ML INJ IVP PRN (16:14)
[2018-01-20] MEDS ORDERED: oxyCODONE IR 5 MG TAB PO PRN (16:14)
[2018-01-20] MEDS ORDERED: HYDROmorphONE/DILAUDID 2 MG/ML INJ IVP PRN (16:14)
[2018-01-20] MEDS ORDERED: ONDANSETRON 4 MG/2 ML VIAL IVP PRN (16:14)
[2018-01-20] MEDS ORDERED: NALOXONE HCL 0.4 MG/ML INJ IVP PRN (16:14)
[2018-01-20] MEDS ORDERED: ALBUTEROL 3 ML DEYVIAL IH PRN (16:14)
[2018-01-20] MEDS ORDERED: ACETAMINOPHEN 500 MG TAB PO PRN (16:14)
[2018-01-20] MEDS ORDERED: MIDAZOLAM 2 MG/2 ML VIAL IVP ONE (16:14)
[2018-01-20] MEDS ORDERED: HYDROCODONE/APAP 5/325 TAB PO PRN (16:14)
--- NOTE | 2018-01-20 16:14 | PDANEPAE ---
ANE History of Present Illness here for SBO ANE Past Medical History - Cardiovascular History Hx Hypertension: No Hx Arrhythmias: No Hx Chest Pain: No Hx Coronary Artery / Peripheral Vascular Disease: No Hx CHF / Valvular Disease: No Hx Palpitations: No Cardiovascular History Comment: PAC's - Pulmonary History Hx COPD: No Hx Asthma/Reactive Airway Disease: No Hx Recent Upper Respiratory Infection: No Hx Oxygen in Use at Home: No Hx Sleep Apnea: No Sleep Apnea Screening Result - Last Documented: Positive Pulmonary History Comment: seasonal allergies - Neurologic History Hx Cerebrovascular Accident: No Hx Seizures: No Hx Dementia: No Neurologic History Comment: DDD- cervical spine and lumbar spine - Endocrine History Hx Diabetes: No Endocrine History Comment: Prediabetes (insulin resistance and placed on metformin by surgical instrument mechanic) - Renal History Hx Renal Disorders: No - Liver History Hx Hepatic Disorders: No - Neurological & Psychiatric Hx Hx Neurological and Psychiatric Disorders: No - Cancer History Hx Cancer: No - Congenital Disorder History Hx Congenital Disorders: No - GI History Hx Gastrointestinal Disorders: Yes Gastrointestinal History Comment: diverticulitis. hiatal hernia with GERD - Other Health History Other Health History: endometriosis. wears glasses - Chronic Pain History Chronic Pain: Yes (lower back) - Surgical History Prior Surgeries: 07/15/17 lap colostomy takedown, converted to open with salpingooophorectomy with [facility]. 04/02/17 lap abscess evacuation with [facility]. microperferations. colectomy. 2 diagnostic laps for ovarian cysts, right oophorectomy. blelphroplasty,face and neck lift ANE Review of Systems Review of systems is: negative Review of Systems: - Exercise capacity Exercise capacity: >=4 METS ANE Patient History - Allergies Allergies/Adverse Reactions: ciprofloxacin [From Cipro] Allergy (Verified 01/14/18 23:05) TINNITIS codeine Allergy (Verified 01/14/18 23:05) n/v propoxyphene [From Darvocet-N] Allergy (Verified 01/14/18 23:05) Itching - Home Medications Home medications: home medication list seen and reviewed Home Medications: Progesterone, Micronized [Progesterone] 100 mg PO HS 03/21/17 [Last Taken ] Spironolactone 100 mg PO DAILY 03/21/17 [Last Taken 01/14/18] metFORMIN HCL [Metformin HCl ER] 1,500 mg PO DAILY18 03/21/17 [Last Taken ] Herbals/Supplements -Info Only 1 ea PO BID 04/02/17 [Last Taken 01/14/18] Estradiol [Climara] 0.025 mg TD SA@0900 06/10/17 [Last Taken 01/14/18] Multivitamins [Multivitamin (*)] 1 each PO DAILY #0 06/10/17 [Last Taken ] Rosebud-3 Fatty Acids [Fish Oil 1000 mg (*)] 1,000 mg PO HS 12/15/17 [Last Taken 01/13/18] Ibuprofen [Motrin (*)] 200 - 400 mg PO Q8H PRN 01/15/18 [Last Taken 01/14/18] Lansoprazole [Prevacid] 15 mg PO HS 01/15/18 [Last Taken 01/14/18] - NPO status NPO Status: no food or drink >8 hours NPO Since - Liquids (Date): 01/18/18 NPO Since - Liquids (Time): 00:00 NPO Since - Solids (Date): 01/18/18 NPO Since - Solids (Time): 00:00 - Smoking Hx Smoking Status: Never smoked - Family Anes Hx Family Hx Anesthesia Complications: none ANE Labs/Vital Signs - Labs Result Diagrams: 01/19/18 14:00 01/20/18 08:35 - Vital Signs Blood Pressure: 132/81 Heart Rate: 86 Respiratory Rate: 16 O2 Sat (%): 92 Height: 165.1 cm Weight: 69 kg ANE Physical Exam - Airway Neck exam: FROM Mallampati Score: Class 1 Mouth exam: normal dental/mouth exam - Pulmonary Pulmonary: no respiratory distress - Cardiovascular Cardiovascular: regular rate and rhythym - ASA Status ASA Status: II ANE Anesthesia Plan Anesthesia Plan: general endotracheal anesthesia
[2018-01-20] MEDS ORDERED: BUPIVACAINE 0.25% 10 ML SDV ONE (16:20)
[2018-01-20] MEDS ORDERED: POLYMYXIN B SULFATE 500,000 UNIT/10 ML SYR IRR ONE (16:20)
[2018-01-20] MEDS ORDERED: ceFAZolin 2 GM in D5W 100 ML IV ONE (16:41)
[2018-01-20] MEDS ORDERED: fentaNYL 100 MCG/2 ML INJ ONE ×2 (16:44→17:41)
[2018-01-20] MEDS ORDERED: PROPOFOL/EMULSION 500 MG/50 ML BOTTLE IV ONE (16:46)
[2018-01-20] MEDS ORDERED: ROCURONIUM 50 MG/5 ML VIAL ONE (17:23)
[2018-01-20] MEDS ORDERED: SUGAMMADEX SODIUM 200 MG/2 ML VIAL IVP ONE (18:00)
--- NOTE | 2018-01-20 18:32 | POSTOPPROG ---
Post Op Note Date of Operation: 01/20/18 Surgeon: David Carrington (, FACS) Mail Carrier And Clerk: Jean-Pierre Wang MD Anesthesiologist: Philip Calhoun MD Anesthesia: GET(General Endotracheal) Pre-op Diagnosis: SBO Post-op Diagnosis: same Procedure: laparoscopic lysis of adhesions Findings: mid small bowel obstruction due to adhesive band at the transition point Inf/Abcess present in the surg proc area at time of surgery?: No EBL: Minimal (2ml) Specimen(s): peritoneal fluid for culture
[2018-01-20] MEDS: HYDROmorphONE/DILAUDID 1 MG/ML INJ IVP PRN (20:26)
[2018-01-20] MEDS: D5W NS W/ 20 KCl/L 1,000 ML IV SCH (22:23)
[2018-01-21] MEDS: LORazepam 2 MG/ML INJ IVP PRN (00:08)
[2018-01-21] MEDS: KETOROLAC 15 MG/1 ML SDV IVP PRN ×3 (06:15→18:19)
[2018-01-21] MEDS: METOCLOPRAMIDE 10 MG/2 ML VIAL IVP SCH ×3 (06:17→18:15)
--- NOTE | 2018-01-21 06:48 | GOP ---
DATE OF OPERATION: SURGEON: David Carrington MD, FACS CRIME LAB ANALYST: Óscar Wang MD ANESTHESIA: General endotracheal. ANESTHESIOLOGIST: Philip Calhoun MD. PREOPERATIVE DIAGNOSIS: Small-bowel obstruction. POSTOPERATIVE DIAGNOSIS: Small-bowel obstruction. PROCEDURE PERFORMED: Laparoscopic lysis of adhesions. FINDINGS: Small amount of peritoneal fluid. Specimen submitted for aerobe and anaerobe culture and sensitivity. Extensive dilatation of the small bowel with a transition point observed in the mid small bowel with a band of adhesion extending from the mesentery to the mesentery, trapping the bowel underneath it. No evidence of ischemia or gangrene. Previously performed hernia repair intact. ESTIMATED BLOOD LOSS: 2 cc. DESCRIPTION OF PROCEDURE: After informed consent was obtained, the patient was brought to the operating room and placed under general anesthesia. The abdomen was prepped and draped in the usual fashion. A Humphrey catheter was not placed. The patient had sequential compression devices during the procedure. After the time-out had been performed, the right upper quadrant skin was infiltrated with 0.25% Marcaine. A transverse incision was made and dissection was carried out down to the fascia. Fascia was grasped with Abhijit clamps and incised. The external oblique, internal oblique and transverse abdominis muscles were bluntly dissected down to the peritoneum which was grasped with hemostats, incised, and the peritoneal cavity was entered under direct visualization. A 12 mm Leon cannula was secured to the fascia with an 0 Vicryl suture and used to create a pneumoperitoneum to a pressure of 15 mmHg with CO2 gas. A 30 degree scope was introduced and the peritoneal cavity was visualized. There was a small amount of ascites. The anterior abdominal wall was relatively free with the exception of some of the omental adhesions in the left lower quadrant, which were not obstructive. With the patient in steep Trendelenburg, the bowel was mobilized from the pelvis and no significant adhesions noted in the pelvis. Two additional 5 mm ports were introduced, 1 in the right lower quadrant, 1 in the left upper quadrant to allow introduction of atraumatic grasping forceps. These were used to gently manipulate the bowel until the point of obstruction was observed in the mid bowel where an adhesive band had crossed over the bowel from one part of the mesentery to another. This was slowly and gently dissected away from the edge of the bowel until it was no longer in contact with the serosa and was divided with a Harmonic Scalpel allowing the bowel to pop open. I elected not to attempt complete running of the bowel as this appeared to be an isolated adhesive band and the bowel was very dilated and I was concerned that we could potentially perforate the bowel if we were performing additional manipulation. Some of the ascites was aspirated and a specimen was submitted for aerobic and anaerobic culture and sensitivity. The operative site appeared hemostatic. The remainder of the laparoscopy was unremarkable. Dr. Calhoun had replaced the nasogastric tube and secured this. The right upper quadrant 12 mm port site was closed with a transfascial closure needle and 0 Vicryl suture. The pneumoperitoneum was evacuated. The remaining 2 ports were removed. Subcutaneous tissues were closed with 3-0 Vicryl suture and the skin was closed with 4-0 Monocryl suture in a subcuticular fashion. Topical Dermabond was applied. Patient was extubated and brought to the recovery room in satisfactory condition. Needle, sponge, and instrument count were correct. COMPLICATIONS: None. /[id number]/MODL MTDD
[2018-01-21] MEDS: D5W NS W/ 20 KCl/L 1,000 ML IV SCH ×2 (07:07→17:36)
[2018-01-21] MEDS ORDERED: ESTRADIOL 0.025 MG PATCH TD SCH (09:00)
[2018-01-21] MEDS: PANTOPRAZOLE SODIUM 40 MG VIAL IVP SCH ×2 (09:08→21:56)
--- NOTE | 2018-01-21 09:18 | SOAPPROG ---
SOAP Progress Note Assessment/Plan: Assessment:1. s/p sigmoid resection/Wallace's procedure for perforated diverticulitis and abscess March 2017 cultures at that time grew out Enterobacter Cloacae Complex resistant to Amp/Sulbactam, Cefazolin, Cefoxitin, Ceftriaxone, Ertapenem, Pip/Tazo ID recommended contact isolation x 12 months. She has subsequently undergone takedown of her colostomy with coloproctostomy and most recently abdominoplasty and repair of multiple abdominal wall hernias without infection 2.SBO: s/p lap enterolysis with early return of bowel function 3. NIDDM: metformin has been held she may require insulin if TPN is started 4. Day #7 without oral intake I anticipate restarting oral intake within 24 hours and will hold off on TPN for now 5. Fever: wbc 2.8, venous lactate 1.1, CXR shows atelectasis, blood cultures pending-will hold off on abx Plan: NGT clamped, will check post void residual and remove NGT later today increase activity and avoidance of narcotics if possible incentive spirometry increase activity 01/16/18 18:33 01/16/18 18:37 01/17/18 08:04 01/17/18 08:08 01/19/18 06:11 01/20/18 07:18 01/21/18 09:16 Subjective: feeling better/passing liquid stool Objective: Vital Signs Temp Pulse Resp BP Pulse Ox 36.6 C 77 16 123/73 H 95 01/21/18 04:00 01/21/18 04:00 01/21/18 04:00 01/21/18 04:00 01/21/18 04:00 Microbiology 01/20/18 17:45 Gram Stain - Final Abdomen - Eswab Laboratory Results 01/21/18 06:37 01/21/18 06:37 01/20/18 01/21/18 01/22/18 05:59 05:59 05:59 Intake Total 5605 3660 Output Total 4900 3460 Balance 705 200 PT 12.7 SEC (12.0-15.0) 01/14/18 23:15 INR 0.93 (0.83-1.16) 01/14/18 23:15 - Pending Discharge Pending Discharge Within 24 Hours: No Pending Discharge Within 48 Hours: No Physical Exam - Physical Exam General Appearance: no apparent distress Respiratory: decreased breath sounds Cardiac/Chest: regular rate, rhythm Abdomen: normal bowel sounds, soft, distended, other (surgical sites uncomplicated) Pelvic Exam: deferred Rectal: deferred Skin: warm/dry Neuro/Psych: alert, normal mood/affect, oriented x 3 ICD10 Worksheet Patient Problems: Problems Problem Status Onset SBO (small bowel obstruction) Acute Carbapenem-resistant Enterobacteriaceae infection Acute Diverticulitis large intestine Acute Ileus, postoperative Acute Pelvic abscess in female Acute Type II diabetes mellitus Acute - ICD10 Problem Qualifiers (1) SBO (small bowel obstruction) (2) Ileus, postoperative (3) Type II diabetes mellitus Qualifiers: Diabetes mellitus usp insulin use: without intermodal customer service use Diabetes mellitus complication status: without complication Qualified Code(s): E11.9 - Type 2 diabetes mellitus without complications
[2018-01-21] MEDS: LORazepam 1 MG TAB PO PRN (21:56)
[2018-01-22] MEDS: METOCLOPRAMIDE 10 MG/2 ML VIAL IVP SCH ×5 (00:33→23:56)
[2018-01-22] MEDS: D5W NS W/ 20 KCl/L 1,000 ML IV SCH ×2 (00:34→08:35)
[2018-01-22] MEDS: IBUPROFEN 600 MG TAB PO PRN ×3 (05:23→20:22)
[2018-01-22] MEDS: PANTOPRAZOLE SODIUM 40 MG VIAL IVP SCH (08:35)
--- NOTE | 2018-01-22 09:37 | SOAPPROG ---
SOAP Progress Note Assessment/Plan: Assessment:1. s/p sigmoid resection/Wallace's procedure for perforated diverticulitis and abscess March 2017 cultures at that time grew out Enterobacter Cloacae Complex resistant to Amp/Sulbactam, Cefazolin, Cefoxitin, Ceftriaxone, Ertapenem, Pip/Tazo ID recommended contact isolation x 12 months. She has subsequently undergone takedown of her colostomy with coloproctostomy and most recently abdominoplasty and repair of multiple abdominal wall hernias without infection 2.SBO: s/p lap enterolysis with early return of bowel function-NGT removed yesterday 3. NIDDM: restart Metformin today 4. nutritional defecit as a result of SBO/advanced to full liquids today Plan: advance diet, DC IV fluids resume home meds anticipate discharge home tomorrow incentive spirometry increase activity 01/16/18 18:33 01/16/18 18:37 01/17/18 08:04 01/17/18 08:08 01/19/18 06:11 01/20/18 07:18 01/21/18 09:16 01/22/18 09:33 Objective: Vital Signs Temp Pulse Resp BP Pulse Ox 36.6 C 70 14 143/85 H 94 01/22/18 08:00 01/22/18 08:00 01/22/18 08:00 01/22/18 08:00 01/22/18 08:00 Microbiology 01/20/18 17:45 Gram Stain - Final Abdomen - Eswab Laboratory Results 01/21/18 06:37 01/21/18 06:37 01/21/18 01/22/18 01/23/18 05:59 05:59 05:59 Intake Total 3660 1274 Output Total 3460 1650 Balance 200 -376 PT 12.7 SEC (12.0-15.0) 01/14/18 23:15 INR 0.93 (0.83-1.16) 01/14/18 23:15 Physical Exam - Physical Exam General Appearance: no apparent distress Respiratory: lungs clear, normal breath sounds, decreased breath sounds Cardiac/Chest: regular rate, rhythm Abdomen: soft, distended, other (incisions o.k., bowel sounds present) Pelvic Exam: deferred Rectal: deferred Skin: warm/dry Neuro/Psych: alert, normal mood/affect, oriented x 3 ICD10 Worksheet Patient Problems: Problems Problem Status Onset SBO (small bowel obstruction) Acute Carbapenem-resistant Enterobacteriaceae infection Acute Diverticulitis large intestine Acute Ileus, postoperative Acute Pelvic abscess in female Acute Type II diabetes mellitus Acute - ICD10 Problem Qualifiers (1) SBO (small bowel obstruction) (2) Ileus, postoperative (3) Type II diabetes mellitus Qualifiers: Diabetes mellitus watermelon inspector insulin use: without watermelon inspector use Diabetes mellitus complication status: without complication Qualified Code(s): E11.9 - Type 2 diabetes mellitus without complications
[2018-01-22] MEDS ORDERED: HYDROmorphONE/DILAUDID 4 MG TAB PO PRN (09:38)
[2018-01-22] MEDS: SPIRONOLACTONE 100 MG TAB PO SCH (10:53)
[2018-01-22] MEDS: MULTIVITAMINS 1 EACH TAB PO SCH (10:53)
[2018-01-22] MEDS ORDERED: metFORMIN SR 500 MG TAB PO SCH (18:00)
[2018-01-22] MEDS: LORazepam 1 MG TAB PO PRN (20:23)
[2018-01-22] MEDS ORDERED: PROGESTERONE,MICR 100 MG CAP PO SCH (21:00)
[2018-01-22] MEDS ORDERED: Lansoprazole [Prevacid] 15 MG PO SCH (21:00)
[2018-01-22] MEDS ORDERED: OMEGA-3 FATTY ACIDS 1,000 MG CAP PO SCH (21:00)
[2018-01-23] MEDS: METOCLOPRAMIDE 10 MG/2 ML VIAL IVP SCH (06:30)
--- NOTE | 2018-01-23 06:34 | PDDCSUM ---
Discharge Summary Discharge Summary: #[id number] Discharge Summary Dictated Tirso Carrington MD, FACS
[2018-01-23] MEDS: IBUPROFEN 600 MG TAB PO PRN (06:35)
[2018-01-23 07:36] VITALS: BP 129/87
--- NOTE | 2018-01-23 08:33 | GDS ---
DISCHARGE DIAGNOSES: 1. Small bowel obstruction. 2. Status post abdominoplasty and repair of incisional hernias. 3. Prior history of perforated diverticulitis with pelvic abscess requiring Wallace procedure and e nd colostomy with subsequent takedown. 4. [id number] diabetes mellitus. HOSPITAL COURSE: For details of admission history and physical, please see dictated summary. Briefl y, the patient is a 62-year-old female admitted on 01/14/2018, with vomiting and abdominal pain. She had findings of small bowel obstruction on imaging. She was admitted for nasogastric decompression by Dr. Napoles. I assumed her care on 01/16/2018, at which time she had a quiet, distended abdomen b ut without significant pain or tenderness. Because of the complexity of her most recent procedures l ess than 1 month status post abdominoplasty and repair of multiple complex incisional hernias, it was elected to attempt nonoperative management. She had persistent high output from her nasogastric tub e and despite having some liquid stool pass on the , she had continued findings of obstruction on plain films. Contrast was administered via the nasogastric tube on 01/20/2018, and showed essential ly complete obstruction of the small bowel. She was brought to the operating room later that day and underwent laparoscopy and was found to have a single band adhesion, which was successfully lysed lap aroscopically. Subsequently, as her ileus resolved, she was advanced in her diet. Intravenous fluid s were discontinued and she was tolerating a soft diet at time of discharge, afebrile, ambulatory. H er incision is healing well without sign of infection. The patient was restarted on her oral medicat ions. Her medications at the time of discharge are listed in the medication reconciliation and inclu de estradiol 0.025 mg weekly, Prevacid 15 mg p.o. q.h.s., metformin ER 1500 mg p.o. q.h.s., multiple vitamins, omega-3 fatty acids, progesterone 100 mg p.o. q.h.s., spironolactone 100 mg p.o. q. day, he rbal supplements, ibuprofen 600 mg p.o. q.6 hours p.r.n., and hydromorphone 4 mg p.o. q.4 hours p.r.n . severe pain (patient has not taken narcotics for the past 48 hours and was not given a new prescrip tion because she still has some from her last surgery). CONDITION AT TIME OF DISCHARGE: Improved. FOLLOWUP: Arranged in my office and with Dr. Bonita Ni. /[id number]/MODL
[2018-01-23] MEDS: SPIRONOLACTONE 100 MG TAB PO SCH (09:31)
[2018-01-23] MEDS: MULTIVITAMINS 1 EACH TAB PO SCH (09:31)
--- NOTE | 2018-01-23 14:22 | ASMTCMCOM ---
CM Note CM Note Notes: CM discussed case with [facility]. Plan continues to discharge home independent, likely 01/23. CM to follow. Plan: Independent tomorrow. Date Signed: 01/22/2018 04:10 PM Electronically Signed By:Jada Ashford
== END 2018-01-23 11:46 | disposition home or self-care (01) | DRG 390 ==
LOC: F2W 01-15 02:30 → OBSVTOIN 01-15 08:55 → F3E 01-16 11:49
PROVIDERS: ADMIT Surgery; ATTEND Surgery
PROC: 02HV33Z Insertion of Infusion Device into Superior Vena Cava, Percutaneous Approach (ICD-10-PCS; 2018-01-17)
PROC: 0DN88ZZ Release Small Intestine, Via Natural or Artificial Opening Endoscopic (ICD-10-PCS; principal; 2018-01-20 16:30)
DX: K56.51 Intestinal adhesions [bands], with partial obstruction (principal); E86.9 Volume depletion, unspecified; E11.9 Type 2 diabetes mellitus without complications; Z79.84 Long term (current) use of oral hypoglycemic drugs
CPT/HCPCS: 96374; C1751; C1769; J0690; J1170; J1885; J2060; J2250; J2405; J2550; J2704; J2765; J3010; Q9967